=== PATIENT | male | born 1930 | race Caucasian/White ===

== ENCOUNTER 2019-04-16 22:23 | Observation (INO) | payer MEDICARE ==
[~2019-04-16] VITALS: Ht 182.9 cm; Wt 94.8 kg
[2019-04-16] MEDS ORDERED: SODIUM CHLORIDE 0.9% 1000ML 1,000 ML IV SCH (23:28)
[2019-04-16 23:43] LABS: BASOPHILS # (AUTO) 0.1 (0.0-0.1); BASOPHILS % 0.6 % (0.0-1.0); EOSINOPHILS # (AUTO) 0.3 (0.0-0.4); EOSINOPHILS % 3.6 % (0.0-6.0); HEMATOCRIT 38.4 % (38.2-49.6); HEMOGLOBIN 11.7 g/dL (14.0-18.0); LYMPHOCYTES # (AUTO) 1.5 (1.0-3.2); LYMPHOCYTES % 19.8 % (18.0-39.1); MEAN CORPUSCULAR HEMOGLOBIN 31.7 pg (28-32); MEAN CORPUSCULAR HGB CONC 30.5 g/dL (31-35); MEAN CORPUSCULAR VOLUME 104.1 fL (81-99); MONOCYTES # (AUTO) 0.7 (0.2-0.8); MONOCYTES % 8.7 % (4.4-11.3); NEUTROPHILS # (AUTO) 5.1 (2.1-6.9); PLATELET COUNT 137 x10e3/uL (140-360); RED BLOOD COUNT 3.69 x10e6/uL (4.3-5.7); RED CELL DISTRIBUTION WIDTH 14.7 % (11.7-14.4)
[2019-04-17] VITALS (12 sets, daily range): BP systolic 120–149; BP diastolic 64–88
[2019-04-17 00:04] LABS: ANION GAP 15.1 mmol/L (8-16); CREATININE, SERUM 1.59 mg/dL (0.72-1.25); POTASSIUM 5.1 mmol/L (3.5-5.1)
[2019-04-17 00:12] LABS: CREATINE KINASE MB 1.1 ng/mL (0-5.0)
--- NOTE | 2019-04-17 02:21 | Diagnostic Imaging Report ---
History:Fall Comparison studies: None Technique: Axial images were obtained from the skull base to the vertex. Coronal and sagittal images reconstructed from the axial data. Dose modulation, iterative reconstruction, and/or weight based adjustment of the mA/kV was utilized to reduce the radiation dose to as low as reasonably achievable. Intravenous contrast: None Findings: Scalp/skull: No abnormalities. Extra-axial spaces: No masses. No fluid collections. Brain sulci: Moderate prominent. Ventricles: Moderate compensatory dilatation. No hydrocephalus. Parenchyma: Ill-defined hypodensities in the supratentorial white matter are small vessel ischemic changes. No masses, hemorrhage, acute or chronic cortical vascular insults. Sellar/suprasellar region: No abnormalities. Craniocervical junction: Patent foramen magnum. No Chiari one malformation. Incidental findings: Atherosclerotic calcifications in the carotid siphons and vertebral arteries. Diffuse inflammatory opacification of the right frontal sinus and of multiple right ethmoid air cells. Impression: No acute abnormalities. Chronic findings: 1. Moderate generalized volume loss. 2. Mild supratentorial white matter small vessel ischemic changes. Signed by: Dr. Hung Gallegos M.D. on 04/17/2019 2:18 AM
--- NOTE | 2019-04-17 02:24 | Diagnostic Imaging Report ---
History: Fall Comparison studies: None Technique: Axial images were obtained through the cervical region.. Coronal and sagittal images reconstructed from the axial data. Dose modulation, iterative reconstruction, and/or weight based adjustment of the mA/kV was utilized to reduce the radiation dose to as low as reasonably achievable. Intravenous contrast: None Findings: Fractures: None. Soft tissues: No gross abnormalities. Atlantoaxial articulation: Moderate degenerative changes. Alignment: Normal lordosis. No scoliosis. 2 mm degenerative anterolisthesis of C3 on C4 and C4 on C5. Cervicomedullary junction: No abnormalities. The foramen magnum is patent. Vertebrae: No infection or neoplasm. Degenerative changes: * Mildly degenerated discs from C2 to C5, moderate from C5 to C7. * Facet arthrosis throughout the cervical region. * Moderate spinal canal stenosis at C6-C7 due to disc osteophyte complexes. * Foraminal stenosis is moderate bilaterally at C3-4, left at C4-5, bilaterally at C5-6 and C6-7 due to facet and uncovertebral arthrosis. Incidental atherosclerotic calcifications in the carotid bulbs. IMPRESSION: 1. No acute abnormalities. Specifically, no fractures 2. Cannot adequately evaluate for ligament, spinal cord and or vascular abnormalities. 3. Degenerative changes as described Signed by: Dr. Hung Gallegos M.D. on 04/17/2019 2:21 AM
--- NOTE | 2019-04-17 02:31 | Diagnostic Imaging Report ---
EXAM: CT Chest WITH contrast- Pulmonary Embolism Protocol INDICATION: Hypoxia, fall. COMPARISON: None TECHNIQUE: Chest was scanned utilizing a multidetector helical scanner from the lung apex through the level of the diaphragm after administration of IV contrast. Thin section reconstructions were obtained with special concentration on the pulmonary arteries. Coronal and sagittal reformations were obtained. Pulmonary embolism protocol was performed. IV CONTRAST: 100 cc of Isovue 370 RADIATION DOSE: Total DLP: 547.5 mGy*cm Dose modulation, iterative reconstruction, and/or weight based adjustment of the mA/kV was utilized to reduce the radiation dose to as low as reasonably achievable. COMPLICATIONS: None FINDINGS: LINES/ TUBES: Left-sided pacemaker with leads in the right atrial appendage and right ventricle. PULMONARY ARTERIES: No filling defect is identified within the pulmonary arteries to the segmental level. The subsegmental pulmonary arteries are not well opacified. Main pulmonary artery measures 2.9 cm in diameter. LUNGS AND AIRWAYS: The central airways are patent. There is bilateral mosaic attenuation. Subsegmental atelectasis in the lower lobes. PLEURA: No evidence of pneumothorax or pleural effusion. There are bilateral lower lobe pleural calcifications. HEART AND MEDIASTINUM: The thyroid gland is normal. No mediastinal, hilar or axillary lymphadenopathy. Mild cardiomegaly. Status post aortic valve replacement. Extensive coronary atherosclerosis with coronary stents. Moderate atherosclerotic calcifications of the thoracic aorta and branch vessels. UPPER ABDOMEN: Limited contrast-enhanced views of the upper abdomen. There is a 5.4 cm right upper pole renal cyst. Extensive atherosclerotic vascular calcifications, pronounced in the splenic artery. Status post left nephrectomy. Postsurgical changes of the liver. BONES: No acute osseous abnormality. No suspicious lytic or blastic lesions. SOFT TISSUES: Unremarkable. IMPRESSION: No evidence of pulmonary embolism to the level of segmental pulmonary arteries. No evidence of acute traumatic abnormality in the chest. Extensive coronary atherosclerosis with coronary stents. Status post aortic valve replacement. Bilateral mosaic attenuation, which may reflect air trapping or microvascular disease. Signed by: Dr. Monika Gonsalez MD on 04/17/2019 2:28 AM
[2019-04-17] MEDS ORDERED: IPRAT-ALBUT 0.5-3 ML (03:19)
[2019-04-17] MEDS ORDERED: ASPIR 8181 MG PO (03:25)
[2019-04-17] MEDS ORDERED: ATORVASTATIN CA20 MG PO (03:25)
[2019-04-17] MEDS ORDERED: SIMETHICONE80 MG PO (03:25)
[2019-04-17] MEDS ORDERED: LASIX40 MG PO (03:25)
[2019-04-17] MEDS ORDERED: ACETAMINOPHEN325 M1 PO (03:25)
[2019-04-17] MEDS ORDERED: NITROGLYCERIN0.4 MG SL (03:25)
[2019-04-17] MEDS ORDERED: LORATADINE10 MG PO (03:25)
[2019-04-17] MEDS ORDERED: METOPROLOL TART25 MG PO (03:25)
[2019-04-17] MEDS ORDERED: FLOMAX0.4 MG PO (03:25)
[2019-04-17] MEDS ORDERED: MECLIZINE HCL 12.5 MG TAB PO PRN (05:15)
[2019-04-17] MEDS ORDERED: ACETAMINOPHEN 325 MG TAB PO PRN (05:15)
[2019-04-17] MEDS ORDERED: ONDANSETRON HCL INJ 2MG/ML 2ML 2 MG/ML VIAL IV PRN (05:15)
[2019-04-17] MEDS ORDERED: TRAMADOL HCL 50 MG TAB PO PRN (05:15)
[2019-04-17] MEDS ORDERED: METOPROLOL TARTRATE 25 MG TAB PO PRN (05:30)
[2019-04-17] MEDS ORDERED: SIMETHICONE 80 MG CHEW PO PRN (05:30)
--- NOTE | 2019-04-17 06:07 | Diagnostic Imaging Report ---
EXAMINATION: CHEST SINGLE (PORTABLE) INDICATION: CHF. COMPARISON: CT chest 04/17/2019. FINDINGS: TUBES and LINES: Left-sided pacemaker with leads overlying the right atrial appendage and right ventricle. LUNGS: Low lung volumes which decreases sensitivity and specificity for pathology. There are patchy opacities at the lung bases bilaterally. No evidence of lobar consolidation. PLEURA: No pleural effusion or pneumothorax. HEART AND MEDIASTINUM: The cardiomediastinal silhouette is mildly enlarged. Atherosclerotic calcifications of the aortic arch. BONES AND SOFT TISSUES: No acute osseous lesion. Soft tissues are unremarkable. UPPER ABDOMEN: No free air under the diaphragm. IMPRESSION: Low lung volumes, cannot exclude mild pulmonary interstitial edema. Signed by: Dr. Monika Gonsalez MD on 04/17/2019 6:03 AM
[2019-04-17 06:09] LABS: BASOPHILS % 0.5 % (0.0-1.0); EOSINOPHILS # (AUTO) 0.3 (0.0-0.4); EOSINOPHILS % 3.3 % (0.0-6.0); HEMATOCRIT 35.2 % (38.2-49.6); LYMPHOCYTES # (AUTO) 2.2 (1.0-3.2); LYMPHOCYTES % 28.2 % (18.0-39.1); MEAN CORPUSCULAR HEMOGLOBIN 31.7 pg (28-32); MEAN CORPUSCULAR HGB CONC 31.3 g/dL (31-35); MEAN CORPUSCULAR VOLUME 101.4 fL (81-99); MONOCYTES # (AUTO) 0.8 (0.2-0.8); MONOCYTES % 9.9 % (4.4-11.3); NEUTROPHILS # (AUTO) 4.4 (2.1-6.9); NEUTROPHILS % 56.8 % (38.7-80.0); PLATELET COUNT 117 x10e3/uL (140-360); RED BLOOD COUNT 3.47 x10e6/uL (4.3-5.7); RED CELL DISTRIBUTION WIDTH 14.7 % (11.7-14.4)
[2019-04-17 06:46] LABS: ANION GAP 11.4 mmol/L (8-16); CALCIUM 8.6 mg/dL (8.4-10.2); CHOL/HDL RATIO 3.5 (3.9-4.7); CREATININE, SERUM 1.27 mg/dL (0.72-1.25); POTASSIUM 4.4 mmol/L (3.5-5.1)
[2019-04-17 06:53] LABS: THYROID STIMULATING HORMONE 0.577 uIU/mL (0.350-4.940)
--- NOTE | 2019-04-17 07:35 | NUR ---
Radiology department cancelled patient's MRI due to patient's pacemaker, spoke to Anita Garcia NP regarding the cancellation, she stated, "okay."
[2019-04-17] MEDS ORDERED: POTASSIUM CHLORIDE 20 MEQ TAB CR PO SCH (09:00)
[2019-04-17] MEDS ORDERED: FUROSEMIDE INJ 10 MG/ML 4 ML VIAL IV SCH (09:00)
[2019-04-17] MEDS: TAMSULOSIN HCL 0.4 MG CAP PO SCH (09:03)
[2019-04-17] MEDS: FAMOTIDINE 20 MG TAB PO SCH ×2 (09:03→17:08)
[2019-04-17] MEDS: ASPIRIN 81 MG CHEW TAB PO SCH (09:03)
--- NOTE | 2019-04-17 09:05 | NUR ---
ASSESSMENT: No spiritual/emotional concerns Intervention: Provided empathic listening and hospitality. Provided information on how to reach children's attendant, if needed. Outcome: Pt expressed appreciation for visit. PASQUALE MONTGOMERY Bookkeepers Supervisor Spiritual Care Department O: [phone] Pager: [phone] ([phone] number calling from)
[2019-04-17] MEDS ORDERED: SODIUM CHLORIDE 0.9% 50ML 50 ML ONE (09:51)
[2019-04-17] MEDS ORDERED: IOPAMIDOL 370 MG/ML 200 ML INFUS..BTL INJ ONE (09:52)
--- NOTE | 2019-04-17 13:29 | NUR ---
CALLED [facility] HE WILL BE ABLE TO RETURN TO FACILITY AFTER CARDIO CONSULT, LONG HE IS NOT PUT TO INPT, IF HE IS SWITCHED WILL HAVE TO OBTAIN NEW AUTH. COMPLETED RTF AND PUT WITH H AND P AND FACE SHEET ON CHART. GOING TO ROOM [address] KOKO VALENTIN AT [facility].
--- NOTE | 2019-04-17 14:08 | NUR ---
Called Anay Mehta's office regarding new consult at [phone] and [phone], left message regarding patient's new consulr with patient's name, date of and room number.
--- NOTE | 2019-04-17 14:54 | NUR ---
SPOKE WITH REP FROM [facility], WHOM STATES WILL HAVE TO RE [facility] AUTH BECAUSE OF TIME IN HOSPITAL, CAN GET AUTH TYPICALLY WITHIN A DAY, BUT WILL HAVE TO FAX CLINICALS TO [facility].
--- NOTE | 2019-04-17 14:56 | NUR ---
Radiology called to inform nursing staff that patient had a CT of chest with contrast within 24 hours so patient may not have the cervical CTA until tonight.
[2019-04-17] MEDS: METOPROLOL TARTRATE 25 MG TAB PO SCH (17:08)
--- NOTE | 2019-04-17 18:01 | Consultation ---
DATE OF CONSULTATION: Cardiac Consultation REASON FOR CONSULTATION: Fall, possible syncope. HISTORY: An 89-year-old gentleman, who is known with very long-standing history of vascular coronary disease. In fact, the patient had extensive coronary artery stenting to all the three coronary arteries at various time. Subsequently, he was admitted with near syncope and non-ST elevation myocardial infarction. He had a cardiac catheterization on January 05, 2019 in [facility], and it showed occluded RCA, occluded circumflex, only patency of LAD with collateral. It was felt by his treating diet kitchen cook, it should be treated medically. At that time, he was dismissed home. It seems he came back with subdural hematoma after a fall. He was having high-degree AV block. He ended with pacemaker implantation on 03/17/2019. Of note, also patient is known with his aortic valve disease and he had TAVR procedure. The patient transferred to [facility] for evaluation. While he is there, the patient felt dizzy when he stands up and he almost passed out. He was transferred to this institution. Part of his workup showed totally occluded right carotid artery. Patency of the left carotid endarterectomy, probably functioning well. He is having pacemaker activity noted. I visited the patient home. He is really truly weak. The problem it seems happened when he stands up quick and he felt dizzy and he fell and he had trauma to his head. The patient is weak for sometimes. He denied having any chest pain or any shortness of breath or palpitation prior to this episodes. REVIEW OF SYSTEMS: Extensive to all systems, will be summarized for clarity. GENERAL: Weakness. No weight loss. No weight gain. No fever, no chills. HEENT: Decreased hearing. PULMONARY: Easy fatigability and shortness of breath on exertion. No pleuritic chest pain. Occasional cough. CARDIAC: He denied having any chest pain. He does have chronic swelling of the lower extremity. He does have easy fatigability and shortness of breath. GI: No hematemesis. No melena. : He wears diaper. MUSCULOSKELETAL: Aches and pain, general debility. HEMATOLOGY: No easy bruising or bleeding. SOCIAL HISTORY: He is retired from [employer]. He is nonsmoker and non-alcohol drinker. HOME MEDICATIONS: Include aspirin 81 mg a day, Lipitor 40 mg a day, Lasix 40 mg twice a day, metoprolol 25 mg twice a day, Flomax 0.4 mg a day. ALLERGIES: NONE. PAST MEDICAL HISTORY: 1. Very lengthy including ischemic cardiomyopathy with coronary artery disease, status post PCI to all three vessels. Most recent catheterization on 03/07/2019, showed occlusion of all arteries with exception of LAD with collateral felt to be he should be treated medically. 2. 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 3. Recent fall and subdural hematoma. 4. Recent T4 fracture. 5. TAVR, questionable date using 23 mm Levy TAVR valve. 6. Status post left carotid endarterectomy. 7. Hypertension. 8. Subdural hematoma after a fall. 9. Nephrectomy. It is not clear if the right or left kidney. As per record, there are two different notes, one said left, one said right. 10. Hyperlipidemia. 11. Peripheral arterial vascular disease. 12. Chronic swelling of the lower extremity and congestive heart failure history. 13. 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 FAMILY HISTORY: There is history of coronary artery disease and hypertension. PHYSICAL EXAMINATION: VITAL SIGNS: Height of 6 feet. Weight of 209 pounds. Blood pressure 120/70, heart rate of 70, respiratory rate of 18. HEENT: Pupils are equal and reactive. NECK: No elevation of jugular venous pulsation. No bruit. CHEST: Clear to auscultation and percussion. HEART: PMI 5th left intercostal space. Normal first and second heart sounds with ejection systolic murmur. ABDOMEN: Soft with good bowel sounds. No organomegaly. EXTREMITIES: Chronic skin changes of foreleg. Minimal edema. NEUROLOGIC: The patient is weak, but there are no focal deficits. IMPRESSION AND PLAN: 1. Fall, possible postural hypertension, possible syncope. 2. Extensive vascular disease with documented occluded right internal carotid artery by carotid Doppler with patency of left carotid endarterectomy. 3. Diffuse coronary artery disease with only patency of LAD with collateral. 4. Status post TAVR. 5. Debility. 6. History of congestive heart failure, improving. 7. Cervical C6-C7 moderate spinal cord stenosis. 8. Fall and fracture of T4. 9. Debility and tendency to fall. From a cardiac point of view, we will recommend to observe him on telemetry. I would recommend stopping his diuretics since he had dye load and he is going to have a CTA of his head and cerebral circulation. We will continue his statin. He has already ruled out for pulmonary embolism by CAT scan. Deep venous thrombosis prophylaxis with precaution. I will interrogate his pacemaker to see if he got any arrhythmias at the time of his near syncope or postural hypotension. From a cardiac point of view, already the decision was made for medical therapy by his primary diet kitchen cook. The patient will be observed and we will follow his progression with you. MD OLIMPIA Flynn/MODL /[id number]
--- NOTE | 2019-04-17 19:36 | NUR ---
Received change of shift report from AM nurse. Walking rounds completed.
[2019-04-17] MEDS ORDERED: ATORVASTATIN 40 MG TAB PO SCH (21:00)
[2019-04-17] MEDS ORDERED: ATORVASTATIN 20 MG TAB PO SCH (21:00)
--- NOTE | 2019-04-17 21:00 | NUR ---
S/W son regarding patient. Son very upset. States pt need to see his own heart doctor. Informed charge nurse Mele RN to s/w son.
--- NOTE | 2019-04-17 21:04 | NUR ---
Patient's son called nurses station upset regarding why the patient has not been transferred to [facility]. The son and his were both on the phone call and very agitated. RN attempted to explain to both of them that the patient had a syncopal episode that may be possibly cardiac related and therefore tests have been ordered to diagnose or rule out. The son does not understand why these tests are being repeated and why we are going on a "fishing expedition." The son was demanding that the patient be transferred to [facility], RN explained that this could only be initiated by the attending physician and that the RN would convey his requests and concerns to the attending MD. Son stated that he did not want any procedures or tests done on the patient and asked that we simply observe the patient until Saturday morning when he has an appointment with his corpsman. RN again stated that these concerns and requests would be conveyed to the attending MD. RN called oncall number for Dr. Erickson at [phone] and spoke to Parveen Ng. RN updated her regarding the son's wishes. Berenice acknowledged the son's request. RN updated the bedside nurse with the son's requests.
--- NOTE | 2019-04-17 21:10 | NUR ---
spoke with son concerning above patient, very frustrated with father being in our hospital; states all his physicians are at [facility]; son does not want any type of invasive procedures done to his father at this hospital, he states monitor and maintain him, he and his were speaking to me on speaker phone and state they have the power of state attorney to make decisions on his behalf, their wishes are for him to either to be transferred to [facility] where he receives all his care or their second request was to just observe him and they wish him to be discharge to their care Saturday because he has an appointment with his physician at [facility] at that time and they can decide if he needs any further care. Informed family member we would get any test cancelled by contacting his admitting physicians, and let them know of their wishes for his care. Addendum: 04/17/19 at 2249 by Marcia Aguirre RN family members name is Suri Watts phone # [phone]
[2019-04-18] VITALS: BP 126/74
[2019-04-18 04:00] VITALS: BP 152/70
[2019-04-18] MEDS ORDERED: Meclizine Hcl PO (04:33)
--- NOTE | 2019-04-18 04:38 | NUR ---
Blood drawn and sent to lab. OSMAN on the floor to see patient. Informed that son mwhats nothing done and to transfer to [facility].
--- NOTE | 2019-04-18 04:44 | NUR ---
Charge nurse called to S/W PA.
[2019-04-18 05:02] LABS: BASOPHILS % 0.5 % (0.0-1.0); EOSINOPHILS # (AUTO) 0.3 (0.0-0.4); EOSINOPHILS % 3.7 % (0.0-6.0); HEMATOCRIT 36.7 % (38.2-49.6); HEMOGLOBIN 11.6 g/dL (14.0-18.0); LYMPHOCYTES # (AUTO) 2.2 (1.0-3.2); LYMPHOCYTES % 28.9 % (18.0-39.1); MEAN CORPUSCULAR HEMOGLOBIN 31.9 pg (28-32); MEAN CORPUSCULAR HGB CONC 31.6 g/dL (31-35); MEAN CORPUSCULAR VOLUME 100.8 fL (81-99); MONOCYTES # (AUTO) 0.7 (0.2-0.8); MONOCYTES % 8.5 % (4.4-11.3); NEUTROPHILS # (AUTO) 4.4 (2.1-6.9); NEUTROPHILS % 57.5 % (38.7-80.0); PLATELET COUNT 121 x10e3/uL (140-360); RED BLOOD COUNT 3.64 x10e6/uL (4.3-5.7); RED CELL DISTRIBUTION WIDTH 14.7 % (11.7-14.4)
[2019-04-18] MEDS: METOPROLOL TARTRATE 25 MG TAB PO SCH (05:07)
[2019-04-18 05:19] LABS: ANION GAP 13.3 mmol/L (8-16); CALCIUM 8.8 mg/dL (8.4-10.2); CREATININE, SERUM 1.22 mg/dL (0.72-1.25); POTASSIUM 4.3 mmol/L (3.5-5.1)
--- NOTE | 2019-04-18 06:46 | NUR ---
Informed Dr Garza that pt family what to be discharge to go down to [facility]. Dr barton.
[2019-04-18 07:45] VITALS: BP 141/67
[2019-04-18] MEDS: ASPIRIN 81 MG CHEW TAB PO SCH (08:00)
[2019-04-18] MEDS: FAMOTIDINE 20 MG TAB PO SCH (08:00)
[2019-04-18] MEDS: TAMSULOSIN HCL 0.4 MG CAP PO SCH (08:00)
--- NOTE | 2019-04-18 08:21 | NUR ---
Discharge order received from . [facility] is from [facility]. Spoke to Mary at [facility], She states patient was in 102. PEDRO informed her patient came in late 04/16, and Pat states it is ok for patient to return. Notified Stone NATHAN to call report to room 102.
[2019-04-18 08:39] VITALS: BP 141/67
--- NOTE | 2019-04-18 10:08 | NUR ---
Spoke to SHAHID with [facility], states good to send patient back with same MOT. Notified Stone NATHAN, also spoke to Ankit, who states he has already had all the work up requested here downtown so she would just like him to return to the facility to continue his rehab. Also, LILI explained to Ankit, she signed and it is placed on the chart. Printed accidentally on prescription paper, which ankit says is fine.
[2019-04-18 11:15] VITALS: BP 158/88
--- NOTE | 2019-04-20 00:57 | Discharge Summary ---
ADMISSION DIAGNOSES: Syncope, [id number] diastolic congestive heart failure, hypertension, benign prostatic hypertrophy, hyperlipidemia, history of coronary artery disease, acute kidney injury versus chronic kidney disease. 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 HISTORY: Hypertension, hyperlipidemia, BPH, chronic diastolic CHF, CAD with PCI. That is all the history the patient admitted to, but per Cardiology's note, he also told them he had PAD, cervical spine disease with C6-C7 spinal cord stenosis, subdural hematoma after a fall, recent T4 fracture, ischemic cardiomyopathy. SURGICAL HISTORY: Left nephrectomy, neck surgery, pacemaker, TAVR, and left carotid endarterectomy. FAMILY HISTORY: The patient's mother had cancer. The patient's uncle had a stroke. SOCIAL HISTORY: Noncontributory. HOSPITAL COURSE: An 89-year-old male, admits after syncope with fall. He was sitting at his desk. When he got up to go to the restroom, he got dizzy and fell. He denies hitting his head and says he did not trip. He denies any focal weakness. On admission, CT of the chest was done, which showed no PE. Chest x-ray showed low lung volumes. CT of the C-spine shows no acute abnormality. CT of the brain shows no acute abnormalities. Echo showed an EF of 60%. Carotid Doppler shows the endarterectomy on the left and an occluded right internal carotid. EKG showed AV dual chamber pacemaker. Cardiology was consulted and a CTA of the head and neck was ordered due to the possible occlusion of the right ICA. After speaking with the patient and family, they did not want anything further done at [facility]. They wanted to transfer to the [facility]. We informed them back without a definitive diagnoses, there is no reason to transfer as we can do everything at [facility] that they can do in the [facility]. The family were very irritated and the patient continued to refuse anymore testing including the pacemaker interrogation, which was wanted by Cardiology. So, the patient will discharge back to his assisted. He was given a p.r.n. prescription for meclizine. All other home medicines will stay the same. Vital signs stable, the patient afebrile. Dictated by Anita Garcia, INSURANCE SALES PROFESSIONAL MD ORTEGA Snowden/ANA MARIA /[id number]
== END 2019-04-18 12:15 ==
LOC: ER 22:23 → ERHOLD 04-17 00:40 → IMCU 04-17 02:11
PROVIDERS: ADMIT Internal Medicine; ATTEND Internal Medicine
DX: R55 Syncope and collapse (principal); R42 Dizziness and giddiness; I95.9 Hypotension, unspecified; R09.02 Hypoxemia; E78.5 Hyperlipidemia, unspecified; N40.0 Benign prostatic hyperplasia without lower urinary tract symptoms; I25.10 Atherosclerotic heart disease of native coronary artery without angina pectoris; Z95.5 Presence of coronary angioplasty implant and graft; Z80.9 Family history of malignant neoplasm, unspecified; Z82.3 Family history of stroke; Z90.5 Acquired absence of kidney; W01.0XXA Fall on same level from slipping, tripping and stumbling without subsequent striking against object, initial encounter; Y93.89 Activity, other specified; Z95.2 Presence of prosthetic heart valve; R53.81 Other malaise; M48.02 Spinal stenosis, cervical region; Z95.0 Presence of cardiac pacemaker; I65.21 Occlusion and stenosis of right carotid artery; I13.0 Hypertensive heart and chronic kidney disease with heart failure and stage 1 through stage 4 chronic kidney disease, or unspecified chronic kidney disease; I50.33 Acute on chronic diastolic (congestive) heart failure; N18.9 Chronic kidney disease, unspecified; N17.9 Acute kidney failure, unspecified; Y92.199 Unspecified place in other specified residential institution as the place of occurrence of the external cause
CPT/HCPCS: 36415 ×3; 70450; 71045; 71260; 72125; 80048 ×3; 80061; 82550; 82553; 83036; 83880; 84443; 84484; 85025 ×3; 93005; 93306; 93880; 97116; 97139; 97161; 97530; 99284; G0378 ×2; J1940; J7030; Q9967

== ENCOUNTER → 2019-09-28 | Emergency (ER) | payer MEDICARE ==
[~2019-09-28] VITALS: Ht 182.9 cm; Wt 94.8 kg
[~2019-09-28] MED LIST: ACETAMINOPHEN325 M1 PO; ASPIR 8181 MG PO; ATORVASTATIN CA20 MG PO; FLOMAX0.4 MG PO; IPRAT-ALBUT 0.5-3 ML; LASIX40 MG PO; LORATADINE10 MG PO; METOPROLOL TART25 MG PO; Meclizine Hcl PO; NITROGLYCERIN0.4 MG SL; SIMETHICONE80 MG PO
--- OUTSIDE RECORDS SUMMARY | 2019-09-28 21:31 | XMS REPORT | Clinical Summary ---
Author Author [facility] Organization [facility] Address Unknown Phone Unavailable Care Team Providers Care Clipping Marker Name Role Phone George De MD PCP Allergies No Known Allergies Medications End Date Status Medication Sig Dispensed Refills Start Date Active loratadine-pseudoepHEDrin Take 1 tablet 0 e (CLARITIN-D 24-hour) by mouth 10-240 mg per 24 hr daily. tablet Active aspirin (ECOTRIN) 81 MG Take 81 mg by 0 enteric coated tablet mouth daily. Active metoprolol succinate XL Take 25 mg by 0 (TOPROL-XL) 25 mg 24 hr mouth daily. tablet Active furosemide (LASIX) 40 mg Take 40 mg by 0 tablet mouth daily. Active silodosin (RAPAFLO) 8 mg Take 8 mg by 0 capsule mouth daily. Active atorvastatin (LIPITOR) 40 Take 40 mg by 0 MG tablet mouth nightly. Active clopidogrel (PLAVIX) 75 Take 75 mg by 0 mg tablet mouth daily. Active sennosides-docusate Take 1 tablet 0 sodium (SENOKOT-S) 8.6-50 by mouth mg per tablet daily as needed. 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 Never 03/16/2019 How many drinks containing alcohol do you have on No t asked a typical day when you are drinking? How often do you have six or more drinks on one Not asked occasion? Sex Assigned at Date Recorded Not on file Industry Job Start Date Occupation Not on file Not on file Not on file Travel End Travel History Travel Start No recent travel history available. Last Filed Vital Signs Reading Time Taken Comments Vital Sign 132/62 03/16/2019 1:30 PM CDT Blood Pressure 93 03/16/2019 1:30 PM CDT Pulse 36.4 C (97.6 F) 03/16/2019 1:30 PM CDT Temperature 18 03/16/2019 1:30 PM CDT Respiratory Rate 95% 03/16/2019 1:30 PM CDT Oxygen Saturation - - Inhaled Oxygen Concentration 99.8 kg (220 lb) 03/16/2019 10:09 AM CDT Weight 182.9 cm (6') 03/16/2019 10:09 AM CDT Height 29.84 03/16/2019 10:09 AM CDT Body Mass Index Plan of Treatment Health Maintenance Due Date Last Done Comments SHINGLES VACCINES (#1) 01/18/1980 65+ PNEUMOCOCCAL VACCINE 1995 (1 of 2 - PCV13) INFLUENZA VACCINE 12/19/2019 Procedures Comments Procedure Name Priority Date/Time Associated Diag nosis CT HEAD WO CONTRAST STAT 03/16/2019 11:26 AM CDT XR CHEST 1 VW PORTABLE STAT 03/16/2019 11:07 AM CDT XR PELVIS 1 OR 2 VW STAT 03/16/2019 11:06 AM CDT URINALYSIS SCREEN AND STAT 03/16/2019 MICROSCOPY, WITH REFLEX 10:49 AM CDT TO CULTURE ECG ED PRELIMINARY Routine 03/16/2019 INTERPRETATION 10:47 AM CDT [place] [facility], E/M Routine 03/16/2019 30-74 MINUTES 10:47 AM CDT TROPONIN, I-STAT STAT 03/16/2019 10:34 AM CDT ESTIMATED GFR STAT 03/16/2019 10:34 AM CDT PARTIAL THROMBOPLASTIN STAT 03/16/2019 TIME (PTT) 10:34 AM CDT PROTHROMBIN TIME WITH INR STAT 03/16/2019 10:34 AM CDT HC COMPLETE BLD COUNT STAT 03/16/2019 W/AUTO DIFF 10:34 AM CDT B NATRIURETIC PEPTIDE STAT 03/16/2019 10:34 AM CDT COMPREHENSIVE METABOLIC STAT 03/16/2019 PANEL 10:34 AM CDT ECG 12-LEAD STAT 03/16/2019 10:28 AM CDT ECG 12-LEAD STAT 03/16/2019 10:16 AM CDT after 09/27/2018 Results * CT Head Wo Contrast (03/16/2019 11:26 AM CDT) Specimen Narrative Performed At EXAMINATION: CT HEAD WO CONTRAST [facility] CLINICAL HISTORY: fall COMPARISON: None TECHNIQUE: Noncontrast CT of the brain was performed from the skull base to the vertex. Both soft tissue and bone recon struction algorithms are interpreted. CT imaging was performed with iterative reconstruction techniques and/or automated exposure control to reduce ra diation dose. FINDINGS: There is acute subdural hemorrhage tanika g the right aspect of the falx with maximal thickness of 8 mm. There is no significant mass effect. No parenchymal hemorrhage is seen. [employer] toy small vessel ischemic changes are noted in the cerebral white matter. Inv olutional changes of brain are present. Intracranial atherosclerotic calcificat ions are noted. No fracture is seen. There is opacification of the right fro ntal sinus and right ethmoid air cells. IMPRESSION: Acute subdural hematoma along the right aspect of the falx with maximal thickness of 8 mm. No significant mass effect. Findings were discussed with Dr. Vazquez at 11:29 AM. He verbalized understanding. [id number] Procedure Note Hm Interface, Radiology Results Incoming - 03/16/2019 11:34 AM CDT EXAMINATION: CT HEAD WO CONTRAST CLINICAL HISTORY: fall COMPARISON: None TECHNIQUE: Noncontrast CT of the brain was performed from the skull base to the vertex. Both soft tissue and bone reconstruction algorithms are interpreted. CT imaging was performed with iterative reconstruction techniques and/or automated exposure control to reduce radiation dose. FINDINGS: There is acute subdural hemorrhage along the right aspect of the falx with maximal thickness of 8 mm. There is no significant mass effect. No parenchymal hemorrhage is seen. Chronic small vessel ischemic changes are noted in the cerebral white matter. Involutional changes of brain are present. Intracranial atherosclerotic calcifications are noted. No fracture is seen. There is opacification of the right frontal sinus and right ethmoid air cells. IMPRESSION: Acute subdural hematoma along the right aspect of the falx with maximal thickness of 8 mm. No significant mass effect. Findings were discussed with Dr. Vazquez at 11:29 AM. He verbalized understanding. [id number] Performing Organization Address [facility] one Number [facility] [address] [place] [address] * XR Chest 1 Vw Portable (03/16/2019 11:07 AM CDT) Specimen Narrative Performed At EXAMINATION: XR CHEST 1 VW PORTABLE [facility] CLINICAL HISTORY: eval for pna XR CHEST 1 VW PORTABLE images are sub mitted COMPARISON: October 2012 FINDINGS: The cardiac silhouette is normal in siz e. The pulmonary vasculature is within normal limits. The lung zones have no f ocal area of consolidation. There is no pleural effusion or pneumothorax. Platelike atelectasis is seen at the le ft lung base. There is mild elevation of the right hemidiaphragm. IMPRESSION: 1. There is no acute cardiopulmonary di sease. [id number] Procedure Note Hm Interface, Radiology Results Incoming - 03/16/2019 11:11 AM CDT EXAMINATION: XR CHEST 1 VW PORTABLE CLINICAL HISTORY: eval for pna XR CHEST 1 VW PORTABLE images are submitted COMPARISON: October 2012 FINDINGS: The cardiac silhouette is normal in size. The pulmonary vasculature is within normal limits. The lung zones have no focal area of consolidation. There is no pleural effusion or pneumothorax. Platelike atelectasis is seen at the left lung base. There is mild elevation of the right hemidiaphragm. IMPRESSION: 1. There is no acute cardiopulmonary dis ease. [id number] Performing Organization Address [facility] one Number [facility] [address] [place] [address] * XR Pelvis 1 Or 2 Vw (03/16/2019 11:06 AM CDT) Specimen Narrative Performed At PROCEDURE: XR PELVIS 1 OR 2 VW [facility] CLINICAL HISTORY: fall COMPARISON: None. TECHNIQUE: Multiple AP views of the pelvis are sub mitted. FINDINGS: No fracture, dislocation, periosteal re action or bone destruction is identified. No acute bony abnormality is seen. Degenerative changes are present within the lumbar spine. If the patient's symptoms persist or de teriorate, follow-up radiograph in 10 days time is recommended, if clinically indicated. IMPRESSION: 1. There is no acute fracture or sublux ation. 2. There are degenerative changes prese nt within the lumbar spine. [id number] . Procedure Note Hm Interface, Radiology Results Incoming - 03/16/2019 11:11 AM CDT PROCEDURE: XR PELVIS 1 OR 2 VW CLINICAL HISTORY: fall COMPARISON: None. TECHNIQUE: Multiple AP views of the pelvis are submitted. FINDINGS: No fracture, dislocation, periosteal reaction or bone destruction is identified. No acute bony abnormality is seen. Degenerative changes are present within the lumbar spine. If the patient's symptoms persist or deteriorate, follow-up radiograph in 10 days time is recommended, if clinically indicated. IMPRESSION: 1. There is no acute fracture or subluxa tion. 2. There are degenerative changes presen t within the lumbar spine. [id number] . Performing Organization Address City/State/Zipcode Ph one Number [facility] [address] [place] [address] * Urinalysis screen and microscopy, with reflex to culture (03/16/2019 10:49 AM CDT) Specimen site Clean catch [facility] Color, UA Yellow [facility] Appearance, UA Clear [facility] Specific 1.018 1.001 - 1.035 [facility] gravity, [facility] pH, UA 5.0 5.0 - 8.5 [facility] Protein, UA Negative Negative [facility] Glucose, UA Negative Negative [facility] Ketones, UA Negative Negative [facility] Bilirubin, UA Negative Negative [facility] Blood, UA Moderate (A) Negative [facility] Nitrite, UA Negative Negative [facility] Urobilinogen, Negative <2.0 [facility] Leukocyte Negative Negative [place] esterase, UA [facility] Epithelial Few /HPF [place] cells, UA [facility] WBC, UA 1 0 - 1 /HPF [facility] RBC, UA 3 0 - 5 /HPF [facility] Bacteria, UA Trace None seen [facility] Yeast, UA None seen [facility] Yeast with None seen [facility] pseudohyphae, [facility] Hyaline casts, 2 /LPF [facility] Specimen Urine Performing Organization Address City/State/Zipcode Ph one Number [facility] DEPARTMENT OF [address] [place] [address] PATHOLOGY AND GENOMIC MEDICINE [address] * ECG ED Preliminary Interpretation - Not an Order (03/16/2019 10:47 AM CDT) Narrative Performed At Gildardo Vazquez Jr., MD 03/17 6:53 AM ECG ED Preliminary Interpretation - Not an Order Performed by: Gildardo Vazquez Jr., MD Authorized by: Gildardo Vazquez Jr., MD ECG reviewed by ED Physician in the abs ence of a shuttle spotter: yes Previous ECG: Previous ECG: Unavailable Rate: ECG rate: 95 ECG rate assessment: normal Rhythm: Rhythm: sinus rhythm Ectopy: Ectopy: none QRS: QRS axis: Normal QRS intervals: Normal Conduction: Conduction: abnormal Abnormal conduction: incomplete RBBB Abnormal conduction comment: Possib le second degree type [address] segments: ST segments: Normal T waves: T waves: normal Comments: Possible second degree type 2 block. * CRITICAL CARE (03/16/2019 10:47 AM CDT) Narrative Performed At Gildardo Vazquez Jr., MD 03/17 6:53 AM Critical Care Performed by: Gildardo Vazquez Jr., MD Authorized by: Gildardo Vazquez Jr., MD Critical care provider statement: Critical care time (minutes): 40 Critical care time was exclusive of: Separately billable procedures and treating other patients and teaching ti ky Critical care was necessary to treat or prevent imminent or life-threatening deterioration of the f ollowing conditions: Cardiac failure and DIRECTOR TRANSLATIONAL failure or compromise Critical care was time spent personal ly by me on the following activities: Obtaining history from pa tient or surrogate, interpretation of cardiac output measurements, examina tion of patient, evaluation of patient's response to treatment, develo pment of treatment plan with patient or surrogate, ordering and perf orming treatments and interventions, ordering and review of l aboratory studies, ordering and review of radiographic studies, pulse o ximetry and re-evaluation of patient's condition Eric 'yes' if you are taking over cri tical care for this patient from another provider.: no * Estimated GFR (03/16/2019 10:34 AM CDT) [facility] Estimated GFR 35 (A) mL/min/1.73 m2 [facility] Comment: SCIENTOLOGIST Catergory Units [facility] HOSPITAL G1 >=90 Normal or high G2 60-89 Mildly decreased G3a 45-59 Mildly to moderately decreased G3b 30-44 Moderately to severely decreased G4 15-29 Severely decreased G5 <15 Kidney failure The eGFR was calculated using the Chronic Kidney Disease Epidemiology Collaboration (CKD-EPI) equation. Interpretation is based on recommendations of the National Kidney Foundation-Kidney Disease Outcomes Quality Initiative (NKF-KDOQI) published in 2014. Specimen Plasma specimen Performing Organization Address [facility] Ph one Number [facility] DEPARTMENT [address] [facility] [place] [address] PATHOLOGY AND [employer] MEDICINE [facility] [address] [place] [address] HOSPITAL * Troponin, I-Stat (03/16/2019 10:34 AM CDT) [facility] Troponin, 0.09 (H) 0.00 - 0.08 ng/mL [facility] I-Stat Comment: SCIENTOLOGIST 0.09 - 1.49 ng/ml [facility] May indicate increased risk HOSPITAL of acute coronary syndrome. >=1.5 ng/ml Consistent with acute myocardial infarction. The diagnostic value of a single normal or non-diagnostic result is questionable. Serial samples at 2-6 hour intervals are required to rule out acute myocardial injury. Specimen Plasma specimen Performing Organization Address City/[facility] Ph one Number [facility] DEPARTMENT OF [address] [facility] [place] [id number] PATHOLOGY AND GENOMIC MEDICINE [facility] [address] * Partial thromboplastin time, activated (03/16/2019 10:34 AM CDT) Pathologist [facility] PTT 34.2 23.0 - 36.0 sec [facility] Comment: SCIENTOLOGIST PTT therapeutic range for [facility] unfractionated heparin is HOSPITAL 61.0-112.0 seconds which corresponds to Anti-Xa 0.3-0.7 U/ml. Specimen Blood Performing Organization Address City/[facility] Ph one Number [facility] DEPARTMENT OF [address] [facility] [place] [address] PATHOLOGY AND GENOMIC MEDICINE [address] * Prothrombin time with INR (03/16/2019 10:34 AM CDT) Pathologist [facility] Prothrombin 13.9 11.5 - 14.5 sec [facility] INR 1.10 [facility] Comment: SCIENTOLOGIST For patients on anticoagulant [facility] therapy, reference ranges HOSPITAL below: Indication: INR Value Treatment of Venous Thrombosis, 2.0-3.0 pulmonary emboli, or prophylaxis of a venous thrombosis, or systemic emboli. High dose, high risk patients 3.0-4.5 with mechanical valves. NOTE: INR values over 3.0 are sometimes associated with gastrointestinal hemorrhage, especially values over 4.0. Specimen Blood Performing Organization Address City/[facility] Ph one Number [facility] DEPARTMENT OF [address] [facility] [address] PATHOLOGY AND GENOMIC MEDICINE [address] * CBC with platelet and differential (03/16/2019 10:34 AM CDT) Pathologist [facility] WBC 9.5 4.2 - 11.0 k/uL [facility] RBC 3.78 (L) 4.04 - 5.86 m/uL [facility] HGB 11.9 (L) 13.0 - 17.3 g/dL [facility] HCT 38.1 34.0 - 45.0 % [facility] MCV 100.8 (H) 80.0 - 98.0 fL [facility] MCH 31.5 27.0 - 34.0 pg [facility] MCHC 31.2 (L) 31.5 - 36.5 g/dL [facility] RDW - SD 51.6 (H) 37.0 - 51.0 fL [facility] MPV 10.4 7.4 - 10.4 fL [facility] Platelet count 152 150 - 400 k/uL [facility] Nucleated RBC 0.00 /100 WBC [facility] Neutrophils 70.5 (H) 36.0 - 66.0 % [facility] Lymphocytes 16.3 (L) 24.0 - 44.0 % [facility] Monocytes 8.7 (H) 0.0 - 6.0 % [facility] Eosinophils 1.9 0.0 - 6.0 % [facility] Basophils 0.4 0.0 - 1.2 % [facility] Immature 2.2 (H) 0.0 - 1.0 % [facility] granulocytes [facility] Specimen Blood Performing Organization Address City/[facility] Ph one Number [facility] DEPARTMENT OF [address] [place] [address] PATHOLOGY AND GENOMIC MEDICINE [address] * B natriuretic peptide (03/16/2019 10:34 AM CDT) Pathologist [facility] BNP 126 (H) 0 - 100 pg/mL [facility] Specimen Blood Performing Organization Address City/[facility] Ph one Number [facility] DEPARTMENT OF [address] [place] [address] PATHOLOGY AND GENOMIC MEDICINE [address] * Comprehensive metabolic panel (03/16/2019 10:34 AM CDT) Pathologist [facility] Sodium 142 135 - 150 mEq/L [facility] Potassium 4.3 3.5 - 5.0 mEq/L [facility] Chloride 100 98 - 112 mEq/L [facility] CO2 27 24 - 31 mmol/L [facility] Anion gap 15@ANIO 7 - 15 mEq/L [facility] BUN 49 (H) 7 - 18 mg/dL [facility] Creatinine 1.70 (H) 0.70 - 1.20 mg/dL [facility] Glucose 146 (H) 65 - 100 mg/dL [facility] Calcium 9.5 8.8 - 10.2 mg/dL [facility] Protein 6.9 6.3 - 8.3 g/dL [facility] Albumin 3.1 (L) 3.5 - 5.0 g/dL [facility] A/G ratio 0.8 0.7 - 3.8 [facility] Alkaline 78 0 - 129 U/L [place] phosphatase [facility] AST 20 10 - 50 U/L [facility] ALT 14 5 - 50 U/L [facility] Total bilirubin 1.0 0.2 - 1.2 mg/dL [facility] Specimen Plasma specimen Performing Organization Address City/State/[facility] Ph one Number [facility] DEPARTMENT OF [address] [facility] [place] [phone] PATHOLOGY AND GENOMIC MEDICINE [facility] [address] [facility] [address] * ECG 12 lead (03/16/2019 10:28 AM CDT) Only the most recent of 2 results within the time period is included. Ventricular 95 [facility] rate Atrial rate 96 [facility] QRSD interval 142 [facility] QT interval 356 [facility] QTC interval 447 [facility] P axis 1 61 [facility] QRS axis 1 60 [facility] T wave axis 44 [facility] EKG impression Undetermined rhythm-Right [facility] bundle branch block-Cannot rule out Inferior infarct (cited on or before 27-OCT-2012)-Abnormal ECG-In automated comparison with ECG of 16-MAR-2019 10:16,-Current undetermined rhythm precludes rhythm comparison, needs review- Specimen Narrative Performed At This result has an attachment that is n ot available. Performing Organization Address City/State/Zipcode Ph one Number [facility] [address] [place] [address] after 09/27/2018 Insurance Type Payer Benefit Subscriber ID Effective Phone Address Plan / Dates Group HMO [facility] MEDICARE [facility] xxxxxxxxx 2018-P MEDICARE resent HMO/PPO (Home) [place], [place] [address] Advance Directives For more information, please contact: [phone] Patient Sleep Technician Explanation Type Date Recorded Advance Directives, 03/16/2019 10:53 AM Living Will and Medical Power of Manager Of Broadcast Content Advance Directives, 03/16/2019 10:53 AM Living Will and Medical Power of Manager Of Broadcast Content Advance Directives, 03/16/2019 12:21 PM Living Will and Medical Power of Manager Of Broadcast Content
--- OUTSIDE RECORDS SUMMARY | 2019-09-28 21:32 | XMS REPORT | Summary of Care ---
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) Allergies, Adverse Reactions, Alerts Substance Reaction Severity Status NKDA Active Medications No data available for this section Results No data available for this section Immunizations No data available for this section Procedures Procedure Date Related Diagnosis Body Site Status CEA - Carotid endarterectomy1 Completed Nephrectomy Completed Placement of stent in anterior descending Complet ed branch of left coronary artery 1Left Social History Social History Type Response Smoking Status Former smoker; Type: Cigare ttes; Previous treatment: None; Concerns about tobacco use in household: No; Exposure to Tobacco Smoke None; Cigarette Smoking Last 365 Days No; Reg Smoking C essation Counseling No; Stopped at age: 25; entered on: 09/10/17 Assessment and Plan No data available for this section
--- OUTSIDE RECORDS SUMMARY | 2019-09-28 21:32 | XMS REPORT | Summary of Care ---
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) Renal cell Resolved carcinoma(Confirmed) Allergies, Adverse Reactions, Alerts No Known Medication Allergies Medications No data available for this section Results No data available for this section Immunizations No data available for this section Procedures Procedure Date Related Diagnosis Body Site Status 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 Completed TAVR - Transcatheter aortic valve replacement 03/11/19 Completed CEA - Carotid endarterectomy1 Completed Nephrectomy Completed Placement of stent in anterior descending Complet ed branch of left coronary artery 1Left Social History Social History Type Response Alcohol Past Smoking Status Current every day smoker; T ype: Chewing tobacco; Previous treatment: None; Concerns about tobacco use in household : No; Exposure to Tobacco Smoke None; Cigarette Smoking Last 365 Days N o; Reg Smoking Cessation Counseling No; Stopped at age: 25; entered on: 04/20/19 Assessment and Plan No data available for this section
--- OUTSIDE RECORDS SUMMARY | 2019-09-28 21:32 | XMS REPORT | Summary of Care ---
Author Author [facility] Organization [facility] Address Unknown Phone Unavailable Encounter SHAYY Zaldivar(OFELIA) [id number] Date(s): 07/08/15 - 07/08/15 [facility] [address] [facility] [employer] [facility] [place] [address]- Discharge Disposition: Home Attending Physician: Tom Nova MD Admitting Physician: Tom Nova MD Referring Physician: Tom Nova MD Vital Signs Most recent to 1 oldest [Reference Range]: Height 182.88 cm (07/08/15 7:10 AM) Blood Pressure 133/83 mmHg [90-140/60-90 mmHg] (07/08/15 7:00 AM) Respiratory Rate 18 BRMIN [14-20 BRMIN] (07/08/15 7:00 AM) Weight 105 kg (07/08/15 7:10 AM) Body Mass Index 31.39 m2 (07/08/15 7:10 AM) Problem List Condition Effective Dates Status Health Status Informan t 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) Allergies, Adverse Reactions, Alerts Substance Reaction Severity Status NKDA Active Medications No Known Medications Results BLOOD BANK RESULTS Most recent to 1 oldest [Reference Range]: ABO/Rh O POS *Unknown* (07/08/15 7:13 AM) Antibody Scrn Negative (07/08/15 7:13 AM) ELECTROLYTES Most recent to 1 oldest [Reference Range]: Sodium Lvl [135-145 140 mEq/L mEq/L] (07/08/15 7:13 AM) Potassium Lvl 4.1 mEq/L [3.5-5.1 mEq/L] (07/08/15 7:13 AM) Chloride Lvl [95-109 105 mEq/L mEq/L] (07/08/15 7:13 AM) CO2 [24-32 mEq/L] 29 mEq/L (07/08/15 7:13 AM) AGAP [10.0-20.0 10.1 mEq/L mEq/L] (07/08/15 7:13 AM) CHEM PANEL Most recent to 1 oldest [Reference Range]: Creatinine Lvl 1.38 mg/dL [0.50-1.40 mg/dL] (07/08/15 7:13 AM) eGFR 46 mL/min/1.73m2 1 *NA* (07/08/15 7:13 AM) BUN [7-22 mg/dL] 22 mg/dL (07/08/15 7:13 AM) B/C Ratio [6-25] 16 (07/08/15 7:13 AM) Glucose Lvl [70-99 127 mg/dL mg/dL] *HI* (07/08/15 7:13 AM) Total Protein 7.3 g/dL [6.4-8.4 g/dL] (07/08/15 7:13 AM) Albumin Lvl [3.5-5.0 3.2 g/dL g/dL] *LOW* (07/08/15 7:13 AM) Globulin [2.0-4.0 4.1 g/dL g/dL] *HI* (07/08/15 7:13 AM) A/G Ratio [0.7-1.6] 0.8 (07/08/15 7:13 AM) Calcium Lvl 8.9 mg/dL [8.5-10.5 mg/dL] (07/08/15 7:13 AM) Magnesium Lvl 1.7 mg/dL [1.8-2.4 mg/dL] *LOW* (07/08/15 7:13 AM) ALT [0-65 unit/L] 17 unit/L (07/08/15 7:13 AM) AST [0-37 unit/L] 14 unit/L (07/08/15 7:13 AM) Alk Phos [39-136 108 unit/L unit/L] (07/08/15 7:13 AM) Bili Total [0.2-1.3 0.4 mg/dL mg/dL] (07/08/15 7:13 AM) 1Result Comment: The eGFR is calculated using the CKD-EPI formula. In most young, healthy individuals the eGFR will be >90 mL/min/1.73m2. The eGFR declines with age. An eGFR of 60-89 may be normal in some populations, particularly the elderly, for whom the CKD-EPI formula has not been extensively validated. Use of the eGFR is not recommended in the following populations: Individuals with unstable creatinine concentrations, including patients and those with serious co-morbid conditions. Patients with extremes in muscle mass or diet. The data above are obtained from the National Kidney Disease Education Program ( NKDEP) which additionally recommends that when the eGFR is used in patients with extremes of body mass index for purposes of drug dosing, the eGFR should be mul tiplied by the estimated BMI. HEMATOLOGY Most recent to 1 oldest [Reference Range]: WBC [3.7-10.4 K/CMM] 9.9 K/CMM (07/08/15 7:13 AM) RBC [4.70-6.10 4.54 M/CMM M/CMM] *LOW* (07/08/15 7:13 AM) Hgb [14.0-18.0 g/dL] 13.4 g/dL *LOW* (07/08/15 7:13 AM) Hct [42.0-54.0 %] 41.8 % *LOW* (07/08/15 7:13 AM) MCV [80.0-94.0 fL] 92.1 fL (07/08/15 7:13 AM) MCH [27.0-31.0 pg] 29.5 pg (07/08/15 7:13 AM) MCHC [32.0-36.0 32.0 g/dL g/dL] (07/08/15 7:13 AM) RDW [11.5-14.5 %] 14.3 % (07/08/15 7:13 AM) Platelet [133-450 281 K/CMM K/CMM] (07/08/15 7:13 AM) MPV [7.4-10.4 fL] 7.7 fL (07/08/15 7:13 AM) Segs [45.0-75.0 %] 65.9 % (07/08/15 7:13 AM) Lymphocytes 23.1 % [20.0-40.0 %] (07/08/15 7:13 AM) Monocytes [2.0-12.0 7.7 % %] (07/08/15 7:13 AM) Eosinophils [0.0-4.0 2.7 % %] (07/08/15 7:13 AM) Basophils [0.0-1.0 0.6 % %] (07/08/15 7:13 AM) Segs-Bands # 6.5 K/CMM [1.5-8.1 K/CMM] (07/08/15 7:13 AM) Lymphocytes # 2.3 K/CMM [1.0-5.5 K/CMM] (07/08/15 7:13 AM) Monocytes # [0.0-0.8 0.8 K/CMM K/CMM] (07/08/15 7:13 AM) Eosinophils # 0.3 K/CMM [0.0-0.5 K/CMM] (07/08/15 7:13 AM) Basophils # [0.0-0.2 0.1 K/CMM K/CMM] (07/08/15 7:13 AM) PT [12.0-14.7 14.4 seconds seconds] (07/08/15 7:13 AM) INR [0.85-1.17] 1.09 (07/08/15 7:13 AM) PTT [22.9-35.8 30.9 seconds seconds] (07/08/15 7:13 AM) Immunizations No data available for this section Procedures Procedure Date Related Diagnosis Body Site CEA - Carotid endarterectomy1 Nephrectomy Placement of stent in anterior descendi ng branch of left coronary artery 1Left Social History Social History Type Response Smoking Status Never smoker; Exposure to T obacco Smoke None; Cigarette Smoking Last 365 Days No; Reg Smoking Cessation Counseli ng No Assessment and Plan No data available for this section
--- OUTSIDE RECORDS SUMMARY | 2019-09-28 21:32 | XMS REPORT | Summary of Care ---
Author Author [facility] Organization [facility] Address Unknown Phone Unavailable Encounter SHAYY Zaldivar(OFELIA) [id number] Date(s): 06/16/18 - 06/16/18 [facility] [address], [address] Discharge Disposition: Home or Self Care Attending Physician: Tom Nova MD Referring Physician: Tom Nova MD Vital Signs Most recent to 1 oldest [Reference Range]: Height 171.45 cm (06/16/18 11:54 AM) Temperature Oral 97.3 DegF [96.4-99.1 DegF] (06/16/18 11:54 AM) Blood Pressure 134/85 mmHg [90-140/60-90 mmHg] (06/16/18 11:54 AM) Respiratory Rate 16 BRMIN [14-20 BRMIN] (06/16/18 11:54 AM) Peripheral Pulse 65 bpm Rate [60-100 bpm] (06/16/18 11:54 AM) Weight 101.818 kg (06/16/18 11:54 AM) Body Mass Index 34.64 m2 (06/16/18 11:54 AM) Problem List Condition Effective Dates Status Health Status Informan t 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
--- OUTSIDE RECORDS SUMMARY | 2019-09-28 21:32 | XMS REPORT | Summary of Care ---
Author Author [facility] Organization [facility] Address Unknown Phone Unavailable Encounter HQ Kayley(OFELIA) [id number] Date(s): 04/22/17 - 04/23/17 [facility] [address], [address] [place], [place] [address] Vital Signs No data available for this [...] essation Counseling No; Stopped at age: 25; Assessment and Plan No data available for this section
--- OUTSIDE RECORDS SUMMARY | 2019-09-28 21:32 | XMS REPORT | Summary of Care ---
Author Author [facility] Organization [facility] Address Unknown Phone Unavailable Encounter HQ Kayley(OFELIA) [id number] Date(s): 04/22/17 - 04/22/17 [facility] [address] Discharge Disposition: Home or Self Care Attending Physician: Tom Nova MD Referring Physician: Tom Nova MD Vital Signs Most recent to 1 2 oldest [Reference Range]: Height 182.88 cm 182.88 cm (04/22/17 10:10 AM) (04/19/17 8:41 AM) Weight 102.273 kg 102.273 kg (04/22/17 10:10 AM) (04/19/17 8:41 AM) Body Mass Index 30.58 m2 30.58 m2 (04/22/17 10:10 AM) (04/19/17 8:41 AM) Problem List Condition Effective Dates Status [...]
--- OUTSIDE RECORDS SUMMARY | 2019-09-28 21:32 | XMS REPORT | Summary of Care ---
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) Allergies, Adverse Reactions, Alerts Substance Reaction Severity Status NKDA Active Medications amLODIPine 10 mg oral tablet 10 mg = 1 tab, PO, Daily, PT MUST SEE PRIMARY CONTINUITY CLERK FOR FUTURE REFILLS, # 30 tab, 0 Refill(s), Pharmacy: [facility] [id number] Start Date: 10/04/16 Status: Ordered Results No data available for this section Immunizations No data available for this section Procedures Procedure Date Related Diagnosis Body Site CEA - Carotid endarterectomy1 Nephrectomy Placement of stent in anterior descendi ng branch of left coronary artery 1Left Social History Social History Type Response Smoking Status Former smoker; Type: Cigare ttes; Stopped at age: 25; Previous treatment: None; Concerns about tobacco use in jany sehold: No; Exposure to Tobacco Smoke None; Cigarette Smoking Last 365 Days No; Reg Smoking Cessation Counseling No Assessment and Plan No data available for this section
--- OUTSIDE RECORDS SUMMARY | 2019-09-28 21:32 | XMS REPORT | Summary of Care ---
Author Author [facility] Organization [facility] Address Unknown Phone Unavailable Encounter SHAYY Zaldivar(OFELIA) [id number] Date(s): 04/08/19 - 04/08/[address] [facility] [address], [address] [place], [place] [address] Discharge Disposition: Home or Self Care Attending Physician: Denia Beck MD Referring Physician: Denia Beck MD Vital Signs Most recent to 1 oldest [Reference Range]: Height 170.18 cm (04/08/19 2:14 PM) Temperature Oral 98.7 DegF [96.4-99.1 DegF] (04/08/19 2:14 PM) Blood Pressure 114/74 mmHg [90-140/60-90 mmHg] (04/08/19 2:14 PM) Respiratory Rate 18 BRMIN [14-20 BRMIN] (04/08/19 2:14 PM) Peripheral Pulse 70 bpm Rate [60-100 bpm] (04/08/19 2:14 PM) Weight 98.693 kg (04/08/19 2:14 PM) Body Mass Index 34.08 m2 (04/08/19 2:14 PM) Problem List Condition Effective Dates Status Health [...] No; Stopped at age: 25; entered on: 04/08/19 Assessment and Plan No data available for this section
--- OUTSIDE RECORDS SUMMARY | 2019-09-28 21:32 | XMS REPORT | Summary of Care ---
Author Author [facility] Organization [facility] Address Unknown Phone Unavailable Encounter SHAYY Zaldivar(OFELIA) [id number] Date(s): 03/16/19 - 03/27/19 [facility] [address] [facility] provided by [facility] [place] [address]- Discharge Disposition: Long Term Facility Attending Physician: Denia Beck MD Admitting Physician: Denia Beck MD Referring Physician: Physician, Non Associated MD Vital Signs 1 2 3 Most recent to oldest [Reference Range]: 177.8 cm (03/27/19 3:53 AM) 177.8 cm (03/26/19 3:34 AM) 177.8 cm (03/25/19 9:30 AM) Height 100.007 kg (03/27/19 3:53 AM) 101 kg (03/26/19 3:34 AM) 97.007 kg (03/25/19 9:30 AM) Current Weight 96.5 DegF (03/26/19 3:27 AM) 97.4 DegF (03/25/19 7:01 PM) 97.8 DegF (03/25/19 4:00 PM) Temperature Oral [96.4-99.1 DegF] 118/58 mmHg (03/27/19 4:00 PM) 102/54 mmHg (03/27/19 2:00 PM) 104/54 mmHg (03/27/19 12:15 PM) Blood Pressure [90-140/60-90 mmHg] 20 BRMIN (03/27/19 4:00 PM) 26 BRMIN *HI* (03/27/19 2:00 PM) 19 BRMIN (03/27/19 12:15 PM) Respiratory Rate [14-20 BRMIN] 84 bpm (03/16/19 5:11 PM) 62 bpm (03/16/19 4:30 PM) 66 bpm (03/16/19 4:00 PM) Peripheral Pulse Rate [60-100 bpm] 100.909 kg (03/16/19 2:59 PM) Weight 31.92 m2 (03/16/19 2:59 PM) Body Mass Index Problem List Condition Effective Dates Status Health Status Informan t Benign essential Resolved HTN(Confirmed) BPH (benign Active prostatic hyperplasia)(Confirm ed) CAD (coronary Resolved atherosclerotic disease)(Confirmed) 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) Renal cell Resolved carcinoma(Confirmed) Allergies, Adverse Reactions, Alerts No Known Medication Allergies Medications acetaminophen 1,000 mg, Route: PO, ONCE, Dosing Weight 100.909, kg, Start date: 03/17/19 8:32: 00 CDT, Stop date: 03/17/19 8:32:00 CDT Start Date: 03/17/19 Stop Date: 03/17/19 Status: Discontinued aspirin 81 mg tablet, enteric coated 81 mg, 1 tab, Route: PO, Drug form: ECTAB, Daily, Dosing Weight 100.909, kg, Sta rt date: 03/17/19 9:00:00 CDT, Duration: 30 day, Stop date: 04/15/19 9:00:00 [employer] , 0 Notes: Do not crush or chew.(Same As: Ecotrin) Start Date: 03/17/19 Stop Date: 03/27/19 Status: Discontinued Ativan 2 mg, 1 mL, Route: IVP, Drug form: INJ, ONCE, Dosing Weight 100.909, kg, Start d ate: 03/17/19 2:20:00 CDT, Stop date: 03/17/19 2:20:00 CDT, 0 Notes: (Same as: Ativan) Start Date: 03/17/19 Stop Date: 03/17/19 Status: Completed Ativan 2 mg, 1 mL, Route: IVP, Drug form: INJ, ONCE, Dosing Weight 100.909, kg, PRN Anx iety, Start date: 03/17/19 4:35:00 CDT, 0 Notes: (Same as: Ativan) Start Date: 03/17/19 Stop Date: 03/17/19 Status: Completed atorvastatin 40 mg, 1 tab, Route: PO, Drug form: TAB, Bedtime, Dosing Weight 100.909, kg, Sta rt date: 03/16/19 21:00:00 CDT, Duration: 30 day, Stop date: 04/14/19 21:00:[address], 0 Notes: (Same as: Lipitor) Start Date: 03/16/19 Stop Date: 03/27/19 Status: Discontinued bisacodyl 10 mg, 1 supp, Route: NH, Drug form: SUPP, ONCE, Dosing Weight 100.909, kg, Star t date: 03/18/19 11:22:00 CDT, Stop date: 03/18/19 11:22:00 CDT, 0 Notes: (Same As: Dulcolax, Bisco-Lax) Start Date: 03/18/19 Stop Date: 03/18/19 Status: Completed bisacodyl 10 mg, 1 supp, Route: NH, Drug form: SUPP, Daily, Dosing Weight 100.909, kg, PRN Constipation, Start date: 03/18/19 11:22:00 CDT, Duration: 30 day, Stop date: 06/17/18 11:21:00 [employer], 0 Notes: (Same As: Dulcolax, Bisco-Lax) Start Date: 03/18/19 Stop Date: 03/27/19 Status: Discontinued clopidogrel 75 mg, Route: PO, Drug form: TAB, Daily, Dosing Weight 100.909, kg, Start date: 03/17/19 9:00:00 CDT, Duration: 30 day, Stop date: 04/15/19 9:00:00 [employer] Start Date: 03/17/19 Stop Date: 03/27/19 Status: Discontinued Colace 100 mg oral capsule 100 mg, 1 cap, Route: PO, BID, Dosing Weight 100.909, kg, Start date: 03/19/19 1 7:00:00 CDT, Duration: 30 day, Stop date: 04/18/19 9:00:00 [employer] Start Date: 03/19/19 Stop Date: 03/19/19 Status: Canceled docusate sodium 100 mg oral capsule 100 mg, 1 cap, Route: PO, Drug form: CAP, BID, Dosing Weight 100.909, kg, Start date: 03/18/19 17:00:00 CDT, Duration: 30 day, Stop date: 04/17/19 9:00:00 [employer], 0 Notes: (Same as: Colace) (Do Not Crush) Start Date: 03/18/19 Stop Date: 03/27/19 Status: Discontinued Flomax 0.4 mg, 1 cap, Route: PO, Drug form: CAP, Daily, Start date: 03/17/19 9:00:00 CD T, Duration: 30 day, Stop date: 04/15/19 9:00:00 [employer], 0 Start Date: 03/17/19 Stop Date: 03/27/19 Status: Discontinued Haldol 2.5 mg, 0.5 mL, Route: IV, Drug form: INJ, ONCE, Dosing Weight 100.909, kg, Star t date: 03/25/19 3:22:00 [employer], Stop date: 03/25/19 3:22:00 [employer], 0 Notes: (Same as: Haldol) Start Date: 03/25/19 Stop Date: 03/25/19 Status: Completed Haldol 2.5 mg, 0.5 mL, Route: IV, Drug form: INJ, ONCE, Dosing Weight 100.909, kg, Star t date: 03/26/19 0:32:00 [employer], Stop date: 03/26/19 0:32:00 [employer], 0 Notes: (Same as: Haldol) Start Date: 03/26/19 Stop Date: 03/26/19 Status: Completed Haldol 1 mg, 0.2 mL, Route: IV, Drug form: INJ, ONCE, Dosing Weight 100.909, kg, Start date: 03/17/19 0:57:00 CDT, Stop date: 03/17/19 0:57:00 CDT, 0 Notes: (Same as: Haldol) Start Date: 03/17/19 Stop Date: 03/17/19 Status: Completed hydrALAZINE 10 mg, 0.5 mL, Route: IV, Drug form: INJ, Q6H, Dosing Weight 100.909, kg, PRN Hy pertension, Start date: 03/17/19 7:38:00 CDT, Duration: 30 day, Stop date: 04/16 7:37:00 [employer], 0 Notes: (Same as: Apresoline)Push over 5 minutes Start Date: 03/17/19 Stop Date: 03/27/19 Status: Discontinued ipratropium 0.5 mg, 2.5 mL, Route: NEB, Drug form: SOLN, RQ6H, Dosing Weight 100.909, kg, St art date: 03/19/19 20:00:00 CDT, Duration: 30 day, Stop date: 04/18/19 14:00:00 [employer], 0 Notes: SEE RT DOCUMENTATION(Same as:Atrovent) Start Date: 03/19/19 Stop Date: 03/26/19 Status: Discontinued ipratropium 0.02% inhalation solution 0.5 mg, 2.5 mL, Route: NEB, Drug form: SOLN, RQ6H, Dosing Weight 100.909, kg, NH N Respiratory Pathway, Start date: 03/19/19 3:08:00 CDT, Duration: 30 day, Stop date: 04/18/19 3:07:00 [employer], 0 Notes: SEE RT DOCUMENTATION(Same as:Atrovent) Start Date: 03/19/19 Stop Date: 03/26/19 Status: Discontinued Keppra 500 mg, 1 tab, Route: PO, Drug form: TAB, BID, Dosing Weight 100.909, kg, Start date: 03/17/19 9:00:00 CDT, Duration: 30 day, Stop date: 04/15/19 17:00:00 [employer], 0 Notes: (Same as:Keppra) Start Date: 03/17/19 Stop Date: 03/17/19 Status: Canceled Keppra + Sodium Chloride 0.9% IV 100 mL 500 mg, Route: IVPB, Q12H, Dosing Weight 100.909, kg, Start date: 03/17/19 9:00: 00 CDT, Duration: 30 day, Stop date: 04/15/19 21:00:00 [employer], 0 Notes: Same as KeppraMix with 100 mL NS, LR or D5W MEDICATION WASTE Prod uct Size: 500 mgProduct Wasted: ___ mg Start Date: 03/17/19 Stop Date: 03/19/19 Status: Discontinued Keppra + Sodium Chloride 0.9% IV 100 mL 1,000 mg, Route: IV, ONCE, Dosing Weight 100.909, kg, Start date: 03/16/19 15:23 :00 CDT, Stop date: 03/16/19 15:23:00 CDT, 0 Notes: Same as KeppraMix with 100 mL NS, LR or D5W MEDICATION WASTE Prod uct Size: 500 mgProduct Wasted: ___ mg Start Date: 03/16/19 Stop Date: 03/16/19 Status: Completed Keppra 500 mg oral tablet 500 mg, 1 tab, Route: PO, Drug form: TAB, Q12H, Dosing Weight 100.909, kg, Start date: 03/19/19 21:00:00 CDT, Duration: 30 day, Stop date: 04/18/19 9:00:00 [employer], 0 Notes: (Same as:Keppra) Start Date: 03/19/19 Stop Date: 03/19/19 Status: Canceled Keppra 500 mg oral tablet 500 mg, 1 tab, Route: PO, Drug form: TAB, Q12H, Dosing Weight 100.909, kg, Start date: 03/19/19 21:00:00 CDT, Stop date: 03/23/19 22:00:00 [employer], 0 Notes: (Same as:Keppra) Start Date: 03/19/19 Stop Date: 03/23/19 Status: Completed Kristalose 20 gm, 30 ml, Route: PO, Drug form: SYRP, ONCE, Dosing Weight 100.909, kg, PRN C onstipation, Start date: 03/20/19 17:36:00 CDT, 0 Notes: (Same as:Chronulac) Start Date: 03/20/19 Stop Date: 03/20/19 Status: Completed Lasix 40 mg, 4 mL, Route: IVP, Drug form: INJ, Q12H, Dosing Weight 100.909, kg, Start date: 03/17/19 7:30:00 CDT, Duration: 30 day, Stop date: 04/15/19 21:00:00 [employer], 0 Notes: (Same as: Lasix) MEDICATION WASTE Product Size: 40 mgProduct Was steff: ___ mg Start Date: 03/17/19 Stop Date: 03/18/19 Status: Discontinued Lasix 40 mg, Route: IVP, Drug form: INJ, Daily, Dosing Weight 100.909, kg, Start date: 03/19/19 9:00:00 CDT, Duration: 30 day, Stop date: 04/17/19 9:00:00 [employer], 0 Start Date: 03/19/19 Stop Date: 03/18/19 Status: Canceled Lasix 40 mg oral tablet 20 mg, 1 tab, Route: PO, Drug form: TAB, Daily, Dosing Weight 100.909, kg, Start date: 03/17/19 9:00:00 CDT, Duration: 30 day, Stop date: 04/15/19 9:00:00 [employer], 0 Notes: (Same as: Lasix) May cause GI upset. Give with food or milk. Start Date: 03/17/19 Stop Date: 03/17/19 Status: Canceled Lasix 40 mg oral tablet 40 mg, 1 tab, Route: PO, Drug form: TAB, Daily, Dosing Weight 100.909, kg, Start date: 03/19/19 9:00:00 CDT, Duration: 30 day, Stop date: 04/17/19 9:00:00 [employer], 0 Notes: (Same as: Lasix) May cause GI upset. Give with food or milk. Start Date: 03/19/19 Stop Date: 03/27/19 Status: Discontinued magnesium citrate 1.745 g/30 mL oral liquid 300 mL, Route: PO, Drug Form: LIQ, Dosing Weight 100.909, kg, ONCE, Start date: 03/19/19 15:35:00 CDT, Stop date: 03/19/19 15:35:00 CDT, 0 Notes: (Same as: Citrate of Magnesia)Concentration: 1.745 gm / 30 mL Start Date: 03/19/19 Stop Date: 03/19/19 Status: Completed melatonin 3 mg oral tablet 3 mg, 1 tab, Route: PO, Drug Form: TAB, Dosing Weight 100.909, kg, Bedtime, Star t date: 03/23/19 21:00:00 [employer], Duration: 30 day, Stop date: 04/21/19 21:00:00 CS T, 0 Notes: (Same as: Melatonin) Start Date: 03/23/19 Stop Date: 03/24/19 Status: Discontinued melatonin 3 mg oral tablet 3 mg, 1 tab, Route: PO, Drug Form: TAB, Dosing Weight 100.909, kg, Q24H, Start d ate: 03/24/19 20:00:00 [employer], Duration: 30 day, Stop date: 04/22/19 20:00:00 [employer], 0 Notes: (Same as: Melatonin) Start Date: 03/24/19 Stop Date: 03/27/19 Status: Discontinued metoprolol tartrate 25 mg, 1 tab, Route: PO, Drug form: TAB, Q12H, Dosing Weight 100.909, kg, Start date: 03/21/19 9:00:00 CDT, Duration: 30 day, Stop date: 04/19/19 21:00:00 [employer], 0 Notes: (Same as: Lopressor) Start Date: 03/21/19 Stop Date: 03/27/19 Status: Discontinued metoprolol tartrate 25 mg oral tablet 25 mg = 1 tab, PO, Q12H, # 60 tab, 0 Refill(s), Pharmacy: [facility] # [id number] Start Date: 03/27/19 Stop Date: 03/27/19 Status: Completed metoprolol tartrate 25 mg oral tablet 25 mg = 1 tab, PO, Q12H, # 60 tab, 0 Refill(s) Start Date: 03/27/19 Status: Ordered nitroglycerin 0.4 mg sublingual tablet 0.4 mg = 1 tab, SL, Q5Min, PRN Chest Pain, # 30 tab, 0 Refill(s) Start Date: 03/27/19 Stop Date: 04/26/19 Status: Ordered Pulmicort Respules 0.5 mg/2 mL inhalation suspension 0.5 mg, 2 mL, Route: NEB, Drug form: SUSP, RBID, Dosing Weight 100.909, kg, Star t date: 03/19/19 15:50:00 CDT, Duration: 30 day, Stop date: 04/18/19 8:00:00 [employer] , 0 Notes: (Same As: Pulmicort) Start Date: 03/19/19 Stop Date: 03/27/19 Status: Discontinued Pulmicort Respules 0.5 mg/2 mL inhalation suspension 0.5 mg, 2 mL, Route: NEB, Drug form: SUSP, Q12H, Dosing Weight 100.909, kg, Star t date: 03/19/19 9:00:00 CDT, Duration: 30 day, Stop date: 04/17/19 21:00:00 [employer] , 0 Notes: (Same As: Pulmicort) Start Date: 03/19/19 Stop Date: 03/19/19 Status: Discontinued QUEtiapine 25 mg oral tablet 37.5 mg = 1.5 tab, PO, Q24H, # 45 tab, 0 Refill(s), Pharmacy: [facility] #[id number] Start Date: 03/27/19 Stop Date: 03/27/19 Status: Completed QUEtiapine 25 mg oral tablet 37.5 mg = 1.5 tab, PO, Q24H, # 45 tab, 0 Refill(s) Start Date: 03/27/19 Status: Ordered Rapaflo 8 mg oral capsule Rapaflo 8 mg oral capsule, 8 mg, Drug form: CAP, Route: PO, Daily, 03/17/19 9:00 :00 CDT, Duration: 30 day, Stop date: 04/15/19 9:00:00 [employer] Start Date: 03/17/19 Stop Date: 03/16/19 Status: Discontinued Reglan 10 mg, 2 mL, Route: IVP, Drug form: INJ, Q6H, Dosing Weight 100.909, kg, Priorit y: NOW, Start date: 03/19/19 15:35:00 CDT, Duration: 3 day, Stop date: 03/22/19 12:00:00 [employer], 0 Notes: (Same as: Reglan) Start Date: 03/19/19 Stop Date: 03/22/19 Status: Completed senna 8.6 mg oral tablet 17.2 mg, 2 tab, Route: PO, Drug Form: TAB, Dosing Weight 100.909, kg, Bedtime, S tart date: 03/19/19 21:00:00 CDT, Duration: 30 day, Stop date: 04/17/19 21:00:00 [employer], 0 Notes: (Same as: Senokot) Start Date: 03/19/19 Stop Date: 03/27/19 Status: Discontinued SEROquel 12.5 mg, 0.5 tab, Route: PO, Drug form: TAB, Bedtime, Dosing Weight 100.909, kg, Priority: NOW, Start date: 03/17/19 17:43:00 CDT, Duration: 30 day, Stop date: 04/15/19 21:00:00 [employer], 0 Notes: (Same as: SEROquel)12.5 mg = 1/2 x 25 mg tab Start Date: 03/17/19 Stop Date: 03/24/19 Status: Discontinued SEROquel 37.5 mg, 1.5 tab, Route: PO, Drug form: TAB, Q24H, Dosing Weight 100.909, kg, St art date: 03/24/19 20:00:00 [employer], Duration: 30 day, Stop date: 04/22/19 20:00:00 [employer], 0 Notes: (Same as: SEROquel)12.5 mg = 1/2 x 25 mg tab Start Date: 03/24/19 Stop Date: 03/27/19 Status: Discontinued simethicone 80 mg, 1 tab, Route: CHEW, Drug form: CHEWTAB, Q6H, Dosing Weight 100.909, kg, P riority: NOW, Start date: 03/19/19 15:35:00 CDT, Duration: 30 day, Stop date: 12:00:00 [employer], 0 Notes: (Same as: Mylicon) Start Date: 03/19/19 Stop Date: 03/27/19 Status: Discontinued simethicone 80 mg, 1 tab, Route: CHEW, Drug form: CHEWTAB, TID, Dosing Weight 100.909, kg, S tart date: 03/18/19 13:00:00 CDT, Duration: 30 day, Stop date: 04/17/19 9:00:00 [employer], 0 Notes: (Same as: Mylicon) Start Date: 03/18/19 Stop Date: 03/19/19 Status: Discontinued simethicone 80 mg oral tablet, chewable 80 mg = 1 tab, CHEW, Q6H, # 90 tab, 0 Refill(s), Pharmacy: [facility] #[id number] Start Date: 03/27/19 Stop Date: 04/16/19 Status: Ordered tamsulosin 0.4 mg oral capsule 0.4 mg = 1 cap, PO, Daily, # 30 cap, 0 Refill(s), Pharmacy: [facility] #[id number] Start Date: 03/27/19 Status: Ordered Toprol-XL 50 mg oral tablet, extended release 50 mg, 1 tab, Route: PO, Drug form: ERTAB, Daily, Start date: 03/17/19 9:00:00 C DT, Duration: 30 day, Stop date: 04/15/19 9:00:00 [employer] Start Date: 03/17/19 Stop Date: 03/22/19 Status: Discontinued Versed 2 mg, 2 mL, Route: IVP, Drug form: INJ, ONCE, Dosing Weight 100.909, kg, Start d ate: 03/17/19 1:28:00 CDT, Stop date: 03/17/19 1:28:00 CDT, 0 Notes: (Same as: Versed) MEDICATION WASTE Product Size: 2 mgProduct Was steff: ___ mg Start Date: 03/17/19 Stop Date: 03/17/19 Status: Discontinued ZyPREXA 7.5 mg, Route: IM, Drug form: INJ, BID, Dosing Weight 100.909, kg, PRN Agitation , Start date: 03/26/19 15:34:00 [employer], Duration: 10 day, Stop date: 04/05/19 15:33 :00 [employer], 0 Notes: (Same As: ZyPREXA IM). Reconstitute with 2.1 ml sterile water for inject ion; use within 1 hour after reconstitution. For IM use only; do not administer IV or SUB-Q. Start Date: 03/26/19 Stop Date: 03/27/19 Status: Discontinued Results 1 2 3 Most recent to oldest [Reference Range]: 6.7 K/CMM (03/27/19 5:08 AM) 6.6 K/CMM (03/26/19 4:32 AM) 6.7 K/CMM (03/25/19 4:20 AM) Neutrophils # [1.5-8.1 K/CMM] 1.4 K/CMM (03/27/19 5:08 AM) 1.5 K/CMM (03/26/19 4:32 AM) 1.3 K/CMM (03/25/19 4:20 AM) Lymphocytes # [1.0-5.5 K/CMM] 0.8 K/CMM (03/27/19 5:08 AM) 0.9 K/CMM *HI* (03/26/19 4:32 AM) 0.8 K/CMM (03/25/19 4:20 AM) Monocytes # [0.0-0.8 K/CMM] 0.3 K/CMM (03/27/19 5:08 AM) 0.3 K/CMM (03/26/19 4:32 AM) 0.3 K/CMM (03/25/19 4:20 AM) Eosinophils # [0.0-0.5 K/CMM] 0.1 K/CMM (03/25/19 4:20 AM) 0.1 K/CMM (03/24/19 3:00 AM) 0.1 K/CMM (03/22/19 4:37 AM) Basophils # [0.0-0.2 K/CMM] 13.5 K d/sc *HI* (03/16/19 3:50 PM) G-value Rapid [5.0-11.6 K d/sc] 0.8 minutes (03/16/19 3:50 PM) K-time Rapid [0.6-2.3 minutes] 73 mm *HI* (03/16/19 3:50 PM) Max Amplitude Rapid [52-71 mm] 0.5 minutes (03/16/19 3:50 PM) R-time Rapid [0.4-0.7 minutes] 81 degrees *HI* (03/16/19 3:50 PM) Angle Rapid [64-80 degrees] 58 mL/min/1.73m2 1 *NA* (03/27/19 5:08 AM) 61 mL/min/1.73m2 2 *NA* (03/26/19 4:32 AM) 60 mL/min/1.73m2 3 *NA* (03/25/19 4:20 AM) eGFR O POS *Unknown* (03/16/19 4:38 PM) ABO/Rh 0.6 *LOW* (03/26/19 4:32 AM) 0.7 (03/17/19 1:44 PM) A/G Ratio [0.7-1.6] Negative (03/16/19 4:38 PM) Antibody Scrn 2.1 g/dL *LOW* (03/26/19 4:32 AM) 2.6 g/dL *LOW* (03/17/19 1:44 PM) Albumin Lvl [3.5-5.0 g/dL] 84 unit/L (03/26/19 4:32 AM) 78 unit/L (03/17/19 1:44 PM) Alk Phos [39-136 unit/L] 19 unit/L (03/26/19 4:32 AM) 10 unit/L (03/17/19 1:44 PM) ALT [0-65 unit/L] 5.0 mEq/L *LOW* (03/27/19 5:08 AM) 6.8 mEq/L *LOW* (03/26/19 4:32 AM) 8.7 mEq/L *LOW* (03/25/19 4:20 AM) AGAP [10.0-20.0 mEq/L] 17 unit/L (03/26/19 4:32 AM) 19 unit/L (03/17/19 1:44 PM) AST [0-37 unit/L] 25 (03/26/19 4:32 AM) 24 (03/17/19 1:44 PM) B/C Ratio [6-25] 0.5 % (03/27/19 5:08 AM) 0.4 % (03/26/19 4:32 AM) 0.6 % (03/25/19 4:20 AM) Basophils [0.0-1.0 %] 23 mg/dL *HI* (03/27/19 5:08 AM) 27 mg/dL *HI* (03/26/19 4:32 AM) 28 mg/dL *HI* (03/25/19 4:20 AM) BUN [7-22 mg/dL] 9.0 mg/dL (03/27/19 5:08 AM) 9.0 mg/dL (03/26/19 4:32 AM) 9.3 mg/dL (03/25/19 4:20 AM) Calcium Lvl [8.5-10.5 mg/dL] 103 mEq/L (03/27/19 5:08 AM) 104 mEq/L (03/26/19 4:32 AM) 104 mEq/L (03/25/19 4:20 AM) Chloride Lvl [95-109 mEq/L] 32 mEq/L (03/27/19 5:08 AM) 33 mEq/L *HI* (03/26/19 4:32 AM) 32 mEq/L (03/25/19 4:20 AM) CO2 [24-32 mEq/L] 1.12 mg/dL (03/27/19 5:08 AM) 1.08 mg/dL (03/26/19 4:32 AM) 1.09 mg/dL (03/25/19 4:20 AM) Creatinine Lvl [0.50-1.40 mg/dL] 3.6 % (03/27/19 5:08 AM) 3.4 % (03/26/19 4:32 AM) 2.8 % (03/25/19 4:20 AM) Eosinophils [0.0-4.0 %] 3.8 g/dL (03/26/19 4:32 AM) 3.9 g/dL (03/17/19 1:44 PM) Globulin [2.7-4.2 g/dL] 117 mg/dL *HI* (03/27/19 5:08 AM) 118 mg/dL *HI* (03/26/19 4:32 AM) 132 mg/dL *HI* (03/25/19 4:20 AM) Glucose Lvl [70-99 mg/dL] 32.9 % *LOW* (03/27/19 5:08 AM) 30.4 % *LOW* (03/26/19 4:32 AM) 34.0 % *LOW* (03/25/19 4:20 AM) Hct [42.0-54.0 %] 10.8 g/dL *LOW* (03/27/19 5:08 AM) 10.5 g/dL *LOW* (03/26/19 4:32 AM) 11.4 g/dL *LOW* (03/25/19 4:20 AM) Hgb [14.0-18.0 g/dL] 1.04 (03/16/19 3:50 PM) INR [0.85-1.17] 5.0 mEq/L (03/27/19 5:08 AM) 4.8 mEq/L (03/26/19 4:32 AM) 4.7 mEq/L (03/25/19 4:20 AM) Potassium Lvl [3.5-5.1 mEq/L] 15.3 % *LOW* (03/27/19 5:08 AM) 15.9 % *LOW* (03/26/19 4:32 AM) 14.1 % *LOW* (03/25/19 4:20 AM) Lymphocytes [20.0-40.0 %] 32.0 pg *HI* (03/27/19 5:08 AM) 33.5 pg *HI* (03/26/19 4:32 AM) 32.3 pg *HI* (03/25/19 4:20 AM) MCH [27.0-31.0 pg] 32.9 g/dL (03/27/19 5:08 AM) 34.5 g/dL (03/26/19 4:32 AM) 33.5 g/dL (03/25/19 4:20 AM) MCHC [32.0-36.0 g/dL] 97.1 fL *HI* (03/27/19 5:08 AM) 97.2 fL *HI* (03/26/19 4:32 AM) 96.5 fL *HI* (03/25/19 4:20 AM) MCV [80.0-94.0 fL] 2.4 mg/dL (03/27/19 5:08 AM) 2.5 mg/dL *HI* (03/26/19 4:32 AM) 2.5 mg/dL *HI* (03/25/19 4:20 AM) Magnesium Lvl [1.8-2.4 mg/dL] 9.1 % (03/27/19 5:08 AM) 10.0 % (03/26/19 4:32 AM) 8.7 % (03/25/19 4:20 AM) Monocytes [2.0-12.0 %] 7.0 fL *LOW* (03/27/19 5:08 AM) 7.2 fL *LOW* (03/26/19 4:32 AM) 7.3 fL *LOW* (03/25/19 4:20 AM) MPV [7.4-10.4 fL] 135 mEq/L (03/27/19 5:08 AM) 139 mEq/L (03/26/19 4:32 AM) 140 mEq/L (03/25/19 4:20 AM) Sodium Lvl [135-145 mEq/L] 3.8 mg/dL (03/27/19 5:08 AM) 3.2 mg/dL (03/26/19 4:32 AM) 3.1 mg/dL (03/25/19 4:20 AM) Phosphorus [2.5-4.5 mg/dL] 239 K/CMM (03/27/19 5:08 AM) 256 K/CMM (03/26/19 4:32 AM) 237 K/CMM (03/25/19 4:20 AM) Platelet [133-450 K/CMM] 71.5 % (03/27/19 5:08 AM) 70.3 % (03/26/19 4:32 AM) 73.8 % (03/25/19 4:20 AM) Segs [45.0-75.0 %] 5.9 g/dL *LOW* (03/26/19 4:32 AM) 6.5 g/dL (03/17/19 1:44 PM) Total Protein [6.4-8.4 g/dL] 13.4 seconds (03/16/19 3:50 PM) PT [12.0-14.7 seconds] 24.6 seconds (03/16/19 3:50 PM) PTT [22.9-35.8 seconds] 3.39 M/CMM *LOW* (03/27/19 5:08 AM) 3.13 M/CMM *LOW* (03/26/19 4:32 AM) 3.52 M/CMM *LOW* (03/25/19 4:20 AM) RBC [4.70-6.10 M/CMM] 14.4 % (03/27/19 5:08 AM) 14.3 % (03/26/19 4:32 AM) 14.3 % (03/25/19 4:20 AM) RDW [11.5-14.5 %] 0.7 mg/dL (03/26/19 4:32 AM) 1.4 mg/dL *HI* (03/17/19 1:44 PM) Bili Total [0.2-1.3 mg/dL] 0.08 ng/mL (03/16/19 3:50 PM) Troponin-I [0.00-0.40 ng/mL] Occasional /HPF *NA* (03/17/19 8:05 AM) UA Amorph Sharifa [None Seen /HPF] Occasional /HPF *NA* (03/17/19 8:05 AM) UA Bacteria [None Seen /HPF] Negative *NA* (03/17/19 8:05 AM) UA Bili [Negative] Small *ABN* (03/17/19 8:05 AM) UA Blood [Negative] Light Yellow *NA* (03/17/19 8:05 AM) UA Color [Yellow] Negative mg/dL *NA* (03/17/19 8:05 AM) UA Glucose [Negative mg/dL] Negative mg/dL *NA* (03/17/19 8:05 AM) UA Ketones [Negative mg/dL] Negative (03/17/19 8:05 AM) UA Leuk Est [Negative] Negative (03/17/19 8:05 AM) UA Nitrite [Negative] 7.0 (03/17/19 8:05 AM) UA pH [5.0-8.0] 30 mg/dL *ABN* (03/17/19 8:05 AM) UA Protein [Negative mg/dL] <1 /HPF (03/17/19 8:05 AM) UA RBC [0-2 /HPF] 8 /LPF *HI* (03/17/19 8:05 AM) UA Renal Epi [<=0 /LPF] 1.014 (03/17/19 8:05 AM) UA Spec Grav [<=1.030] Occasional /LPF *NA* (03/17/19 8:05 AM) UA Sq Epi [Few /LPF] Clear (03/17/19 8:05 AM) UA Turbidity [Clear] <1.0 mg/dL (03/17/19 8:05 AM) UA Urobilinogen [0.1-1.0 mg/dL] <1 /HPF (03/17/19 8:05 AM) UA WBC [0-5 /HPF] 9.3 K/CMM (03/27/19 5:08 AM) 9.4 K/CMM (03/26/19 4:32 AM) 9.0 K/CMM (03/25/19 4:20 AM) WBC [3.7-10.4 K/CMM] 97 seconds (03/16/19 3:50 PM) ACT (TEG) Rapid [86-118 seconds] 0.0 % (03/16/19 3:50 PM) Estimated % Lysis Rapid [0.0-7.5 %] 0.4 minutes *NA* (03/16/19 3:50 PM) [place] Rapid 1.19 mMol/L (03/27/19 5:08 AM) 1.15 mMol/L (03/26/19 4:32 AM) 0.95 mMol/L *LOW* (03/25/19 5:44 AM) Ca Ion WB [1.05-1.25 mMol/L] 1.19 mMol/L (03/27/19 5:08 AM) 1.17 mMol/L (03/26/19 4:32 AM) 1.02 mMol/L *LOW* (03/25/19 5:44 AM) Ca Norm WB [1.05-1.25 mMol/L] 1Result Comment: The eGFR is calculated using [...] be mul tiplied by the estimated BMI. 2Result Comment: The eGFR is calculated using the [...] be mul tiplied by the estimated BMI. 3Result Comment: The eGFR is calculated using the [...] be mul tiplied by the estimated BMI. 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 Evans is a 89 year old male with PMH of HTN, severe s/p TAVR, ischemic cardiomyopathy (most recent LVEF 60%), RCC s/p nephrectomy, carotid stenosis s/p L CEA, CAD s/p PCI to LAD and LCx that presented to [facility] after a syncope episode s/p mechanical fall with head trauma. The patient reports waking up this morning, then passing out while getting out of bed. He was found on the ground by family members unresponsive and was taken to the OSH. CT brain at the OSH suggested a right parafalcine 8 mm SDH with no mass effect. GCS was 15, placed on a cardene drip and transferred to [facility] for HLOC. On arrival, repeat CT brain showed stable SDH with CT spine cervical demonstrating C6 fracture. Neuro surgery was consulted. EKG was consistent with complete HB. EP was consulted for PPM placement. On the unit, the patient is awake, alert and hemodynamically stable on NC. He denies any fevers, chills, CP, SOB or N/V. IN ICU: Acute hypoxemia previous night, requiring NRB then vapotherm. Improved with aggressive suctioning. Continue to wean vapotherm. Page ortho regarding less restricting brace. INTERVAL EVENTS: -still with mild agitation last night. Currently sitting up in the chair. Denies dyspnea. On 2L NC. Not on home O2 or inhalers. Review of Systems Constitutional: No fever, No chills. Eye: No icterus. Respiratory: No shortness of breath, No cough. Cardiovascular: No chest pain, No peripheral edema. Gastrointestinal: Constipation, Abdominal pain. Genitourinary: No dysuria, No hematuria. Integumentary: Skin lesion, No rash, No pruritus. Neurologic: Alert and oriented X4. Foot Pain Health Status Allergies: Allergies (1) ActiveReaction No Known Medication AllergiesNone Documented Current medications: Medications (13) Active Scheduled: (10) aspirin 81 mg ECT 81 mg 1 tab, PO, Daily atorvastatin 40mg tab 40 mg 1 tab, PO, Bedtime budesonide 0.5 mg/2ml neb SUSP 0.5 mg 2 mL, NEB, RBID docusate sodium 100 mg CAP 100 mg 1 cap, PO, BID melatonin 3 mg TAB 3 mg 1 tab, PO, Q24H metoprolol tartrate 25 mg TAB 25 mg 1 tab, PO, Q12H QUEtiapine 12.5 mg (1/2 of 25 mg) TAB 37.5 mg 1.5 tab, PO, Q24H senna 8.6 mg TAB 17.2 mg 2 tab, PO, Bedtime simethicone 80 mg CHEW 80 mg 1 tab, CHEW, Q6H tamsulosin 0.4 mg CAP 0.4 mg 1 cap, PO, Daily Continuous: (0) PRN: (3) bisacodyl 10 mg rect SUPP 10 mg 1 supp, NH, Daily hydrALAZINE 20 mg/1 ml VL 10 mg 0.5 mL, IV, Q6H OLANZapine 10 mg INJ 7.5 mg, IM, BID Physical Examination VitalsTmp(F)[id number] 03/27 10:00----[id number]--- 03/27 08:48 98 2.0L/m 03/27 08:00----[id number]--- 03/27 07:5095.6 03/27 06:00----[id number]--- 24 Hr Tmax: 98.5F (36.94c) at 03/26 20:1 0Vital Signs are the last 5 in the past 48 hours. I&ORecordInOutBal 03/824hr Tot 240 0 240 03/724hr Tot 556 150 406 VS/Measurements Measurements from flowsheet : Measurements 03/27/2019 03:53 Heparin Dosing Weight (kg) 84.16 03/27/2019 03:53 Height 177.8 cm Height Collection Method Measured Weight Collection Method Measured Current Weight 100.007 kg Weight Difference Percent -0.983 % Body Mass Index-Current 31.63 m2 03/26/2019 03:34 Heparin Dosing Weight (kg) 84.16 03/26/2019 03:34 Height 177.8 cm Height Collection Method Measured Weight Collection Method Measured Current Weight 101 kg Weight Difference Percent 4.116 % Body Mass Index-Current 31.95 m2 , Vital Signs (last 24 hrs) Last Charted Temp Zmwtrsef89.6 DegF (MAR 27 07:50) Heart Rate Dbvqkf16 bpm (MAR 27 10:00) Resp Rate 20 BRMIN (MAR 27 10:00) QNS079 mmHg (MAR 27 10:00) DBPL 52mmHg (MAR 27 10:00) Krndbq476.8 cm (MAR 27 03:53) Gen: AAOx3; NAD. with Neck brace Neuro: No focal deficits appreciated HEENT: PERRL; EOMI; No scleral icterus CV/Pulses: RRR; 2+ peripheral pulses Pulm: Decreased breath sounds at the bases; No wheezing, few rales, non labored GI: BS (+); Soft; NTND : Deferred MS: Tone intact Skin/Ext: No changes in lesions; 1- 2+ pitting edema Review / Management Results review: Labs (Last four charted values) WBC 9.3(MAR 27)9.4(MAR 26)9.0(MAR 25)9.8(MAR 24) Hgb L 10.8(MAR 27)L 10.5(MAR 26)L 11.4(MAR 25)L 11.4(MAR 24) Hct L 32.9(MAR 27)L 30.4(MAR 26)L 34.0(MAR 25)L 34.0(MAR 24) Plt 239(MAR 27)256(MAR 26)237(MAR 25)240(MAR 24) Na 135(MAR 27)139(MAR 26)140(MAR 25)140(MAR 24) K 5.0(MAR 27)4.8(MAR 26)4.7(MAR 25)4.7(MAR 24) CO2 32(MAR 27)H 33(MAR 26)32(MAR 25)32(MAR 24) Cl 103(MAR 27)104(MAR 26)104(MAR 25)104(MAR 24) Cr 1.12(MAR 27)1.08(MAR 26)1.09(MAR 25)1.16(MAR 24) BUN H 23(MAR 08)H 27(MAR 07)H 28(MAR 25)H 31(MAR 24) Glucose Random H 117(MAR 08)H 118(MAR 26)H 132(MAR 25)H 140(MAR 24) Mg 2.4(MAR 27)H 2.5(MAR 26)H 2.5(MAR 25)H 3.0(MAR 24) Phos 3.8(MAR 27)3.2(MAR 26)3.1(MAR 25)3.3(MAR 24) Ca 9.0(MAR 27)9.0(MAR 26)9.3(MAR 25)9.4(MAR 24) PT 13.4(MAR 16) INR 1.04(MAR 16) PTT 24.6(MAR 16) Troponin 0.08(MAR 16). Radiology results Reviewed radiologist's report chest xray 03/26/19 FINDINGS: Comparison is made to March 19. Cardiomediastinal silhouette is unchanged with TAVR. There is a midline brace over the chest. Bipolar left subclavian pacemaker remains in place. Lungs are low in volume with bibasilar platelike atelectasis. No definite pleural effusions. IMPRESSION: The lungs are low in volume with bibasilar platelike atelectasis. 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 -Continue OOB to chair as tolerated and continue PT/OT. -D/c Atrovent nebs since he's anticholin ergic and may contribute to his delirium. -Continue Seroquel 37.5 mg qHS and will add PRN Zyprexa IM 7.5mg BID. -If delirium persist, consider checking UA to r/o UTI (was unremarkable on 03/17/19). -Continue weaning O2 supplement. Need b arlet O2 pulse oximetry given poor waveform. -brace recommendations per Ortho team, f ollow up -also will need follow up outpatient at the pulmonary clinic - pending transfer to outpatient rehab Discussed with Dr Boyer. Lucille Figueroa DNP [facility] #[id number] Addendum I have seen and examined th e patient with Lucille Figueroa NP on 03/27/19. I agree with by Merlin, her assessment and plan as documented. Arnoldo Berger REVIEW OF SYSTEMS: on Constit: Denies Fever Night sweats 03/27/2019 HEENT: Denies Headaches Dys phagia 23:04 Pulm: per Events CV: per Events GI: Denies Abd pain Nausea Vomiting : Denies Hematuria Dysuria MS: Denies Myalgias Fall Neuro: Denies Numbness/Tingling Syncope Skin: Denies New rashes Hemo/Lymph: Denies Jaundice Bleeding Arnoldo Boyer M.D. Pul[facility] MS[facility] # [id number] Pager # [phone] Extracted from: Title: EP Consultation Note Author: Og Jackson Date: 03/17/19 History of Present Illness 89 yo male with PMH significant for isch emic cardiomyopathy (LVEF improved on recent Echo 60%), CAD s/p PCI to LAD and s/p PCI to LCx at bifurcation to first OM with Impella assist (07/04/15), carotid artery stenosis s/p L CEA (10/2012), RCC s/p nephrectomy and HTN, severe s/p TAVR (29mm Levy S3 29 mm 03/11/19) presenting after an episode of dizziness with subsequent fall. Noncompressive right parafalcine subdural hematoma noted on CTH which was stable on repeat imaging. ECG consistent with high degree AV block. EP was consulted and patient was immediately taken to the director of labor relations for PPM. Patient is now s/p Dual Chamber PPM. Review of Systems Constitutional: No fever, No chills. Respiratory: No shortness of breath, No cough. Gastrointestinal: No nausea, No vomiting, No diarrhea, No constipation. Genitourinary: No dysuria, No hematuria. Hematology/Lymphatics: No bruising tendency, No bleeding tendency. Endocrine: No excessive thirst, No polyuria. Immunologic: Not immunocompromised, No recurrent fevers. Integumentary: No rash, No pruritus. Neurologic: Alert and oriented X4, No abnormal balance. Psychiatric: No anxiety, No depression. Health Status Allergies: Allergic Reactions (Selected) No Known Medication Allergies, Allergies (1) ActiveReaction No Known Medication AllergiesNone Documented Current medications: (Selected) Inpatient Medications Ordered Flomax: 0.4 mg, 1 cap, PO, Daily Keppra + Sodium Chloride 0.9% IV 100 mL: 500 mg, 400 ml/hr, IVPB, Q12H Lasix: 40 mg, 4 mL, IVP, Q12H atorvastatin: 40 mg, 1 tab, PO, Bedtime hydrALAZINE: 10 mg, 0.5 mL, IV, Q6H, PRN: Hypertension Suspended Toprol-XL 50 mg oral tablet, extended release: 50 mg, 1 tab, PO, Daily aspirin 81 mg tablet, enteric coated: 81 mg, 1 tab, PO, Daily clopidogrel: 75 mg, PO, Daily Prescriptions Suspended Rapaflo 8 mg oral capsule: 8 mg, 1 cap, PO, Daily, 90 tab, 2 Refill(s) metoprolol 50 mg oral tablet, extended release: 50 mg, 1 tab, PO, Daily, 30 tab, 3 Refill(s) Documented Medications Suspended Claritin: 10 mg, 1 tab, PO, Daily, PRN: Itching / rash / allergy symptoms, 14 tab, 0 Refill(s) Lasix 40 mg oral tablet: 40 mg, 1 tab, PO, Daily, 0 Refill(s) aspirin 81 mg tablet, enteric coated: 81 mg, 1 tab, PO, Daily, 0 Refill(s) atorvastatin 40 mg oral tablet: 40 mg, 1 tab, PO, Bedtime, 0 Refill(s) clopidogrel 75 mg oral tablet: 75 mg, 1 tab, PO, Daily, 0 Refill(s) nitroglycerin 0.4 mg sublingual tablet: 0.4 mg, 1 tab, SL, Q5Min, PRN: Chest Pain, 0 Refill(s) Problem list: All Problems BPH (benign prostatic hyperplasia) / SNOMED CT 425925254 / Confirmed Renal cell carcinoma of left kidney / SNOMED CT 727259311 / Confirmed Multiple renal cysts / SNOMED CT 799730727 / Confirmed 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 Renal cell carcinoma (0895707414): Resolved. CAD (coronary atherosclerotic disease) ([id number]): Resolved. Carotid artery stenosis ([id number]): Resolved. Family History: Breast cancer Mother Heart disease Father Procedure history: Permanent cardiac pacemaker procedure ([id number]) on 03/16/2019 at 89 Years. TAVR - Transcatheter aortic valve replacement ([id number]) on 03/11/2019 at 89 Years. CEA - Carotid endarterectomy ([id number]). Comments: 07/04/2015 14:01 - Cristóbal Baker DO Left Placement of stent in anterior descending branch of left coronary artery ([id number]). Nephrectomy ([id number]). Social History Social & Psychosocial Habits Alcohol 03/05/2019 Use: Past Tobacco 07/04/2015 Use: Former smoker Exposure to Tobacco Smoke None Other Tobacco Frequency Smoked a few months at a time when he was younger. No current smoking Cigarette Smoking Last 365 Days No Reg Smoking Cessation Counseling Yes 03/05/2019 Use: Former smoker Exposure to Tobacco Smoke None Cigarette Smoking Last 365 Days No Reg Smoking Cessation Counseling No 03/16/2019 Use: Current every day smoke r Type: Chewing tobacco Stopped at age: 25 Years Previous treatment: None Concerns about tobacco use in household: No Exposure to Tobacco Smoke None Cigarette Smoking Last 365 Days No Reg Smoking Cessation Counseling No. Physical Examination VS/Measurements Measurements from flowsheet : Measurements 03/16/2019 15:12 Heparin Dosing Weight (kg) 84.16 03/16/2019 14:59 Height 177.8 cm Height Collection Method Stated Weight 100.909 kg Dosing Weight Difference Percent -3.604 % Dosing Weight Collection Method Estimated Body Surface Area 2.2324 m2 Body Mass Index 31.92 m2 , Vital Signs (last 24 hrs) Last Charted Temp Vcghsekc64.1 DegF (MAR 17 04:00) Heart Rate ApicalH 108bpm (MAR 17 08:) Resp Rate H 32BRMIN (MAR 17 08:) SBPH 170mmHg (MAR 17 08:) DBP79 mmHg (MAR 17 08:) Xymfuv409.90 kg (MAR 16:59) Cjwoyr054.8 cm (MAR 16:59) BMI31.92 (MAR 16:) PHYSICAL EXAM General Appearance: No acute distress Head: Normocephalic atraumatic Eyes:EOMI, PERRLA Neck: Supple, FROM Lungs: CTA bilaterally, no wheezes, rales, rhonchi Heart: Regular rate and regular rhythm, no murmur, rubs, gallops Abdomen: soft, non-tender, non-distended Musculoskeletal:Moves all 4 extremities, no LE edema Extremities: no pitting edema bilaterally. Neurologic: Alert/appropriate, no focal deficits Skin: Nolesions, no rash. Psych: Mood congruent affect, responds appropriately to questions. Review / Management Results review: Labs (Last four charted values) WBC 8.5(MAR 17)9.3(MAR 16) Hgb L 12.0(MAR 17)L 11.6(MAR 16) Hct L 35.4(MAR 17)L 35.4(MAR 16) Plt 146(MAR 17)153(MAR 16) Na 141(MAR 17)139(MAR 16) K 4.5(MAR 17)4.2(MAR 16) CO2 27(MAR 17)28(MAR 16) Cl 107(MAR 17)104(MAR 16) Cr 1.23(MAR 17)H 1.53(MAR 16) BUN H 34(MAR 17)H 45(MAR 16) Glucose Random H 164(MAR 17)H 133(MAR 16) Mg 2.4(MAR 17) Phos 2.7(MAR 17) Ca 8.7(MAR 17)9.4(MAR 16) PT 13.4(MAR 16) INR 1.04(MAR 16) PTT 24.6(MAR 16) Troponin 0.08(MAR 16). Impression and Plan 89 yo male with PMH significant for isch emic cardiomyopathy (LVEF improved on recent Echo 60%), CAD s/p PCI to LAD and s/p PCI to LCx at bifurcation to first OM with Impella assist (07/04/15), carotid artery stenosis s/p L CEA (10/2012), RCC s/p nephrectomy and HTN, severe s/p TAVR (29mm Levy S3 29 mm 03/11/19) presenting after an episode of dizziness with subsequent fall. Noncompressive right parafalcine subdural hematoma noted on CTH which was stable on repeat imaging. ECG consistent with high degree AV block. EP was consulted and patient was immediately taken to the director of labor relations for PPM. Patient is now s/p Dual Chamber PPM. Complete Heart Block in setting of recent TAVR -Symptomatic, presented with syncope and fall. - in setting of dizziness complicated by fall -s/p Dual Chamber Abbot PPM. -Interrogation showed normal PPM functio n. CXR showed appropriate location of the leads. -Will make some minor adjustments in PPM parameters. Thank you for the consult. Patient was discussed with Dr. Peerz Addendum Pt seen and examined emerge ntly on Mar 17 2019. S/p PPM placement and findings and plan by as per Dr. Jackson. Tyson Perez MD on 03/19/2019 17:58 Extracted from: Title: AHF H and P Author: Denia Beck Date : 03/16/19 Impression and Plan 89 yo male with PMH significant for isch emic cardiomyopathy (LVEF improved on recent Echo 60%), CAD s/p PCI to LAD and s/p PCI to LCx at bifurcation to first OM with Impella assist (07/04/15), carotid artery stenosis s/p L CEA (10/2012), RCC s/p nephrectomy and HTN, severe s/p TAVR (29mm Levy S3 29 mm 03/11/19) presenting after an episode of dizziness with subsequent fall. Noncompressive right parafalcine subdural hematoma noted on CTH which was stable on repeat imaging. ECG consistent with high degree AV block. EP consulted and patient taken to the director of labor relations for PPM. Of note, metoprolol recently increased as well. High degree AVB - in setting of dizziness complicated by fall - EP consulted, PPM today - will follow up EP procedure note SDH - Noncompressive right parafalcine subdu ral hematoma noted on CTH which was stable on repeat imaging. - neurosurgery consulted: patient at [facility], repeat CTH stable. Requires ICU admission for Q1 neurovascular checks. Keppra load 1000mg x1, then 500mg BID until 03/23/19 for seizure prophylaxis. Soft collar. BP systolic goal 100-150. - holding aspirin, plavix for now. Will discuss with NSG when OK to restart. Spinal fractures - CT spine 03/16 Triangular bony fragmen t at the anterior superior endplate of C6 vertebral body (series 7/image 30) may represent age-indeterminate fracture through an osteophyte. No definite associated prevertebral soft tissue prominence/hematoma. - CT chest 03/16 Transverse oblique nond isplaced T4 vertebral body fracture disrupting the anterior cortex, consistent with hyperextension fracture. - ortho consulted, pending recs Acute/chronic systolic heart failure 2/2 ischemic cardiomyopathy--EF improved 60% on recent TTE - RHC 03/07/19 mildly elevated filling p ressures. - unable to add ACEi/ARB/ARNI 2/2 renal function and solitary kidney. - holding metoprolol while pending PPM #CAD s/p PCI - PET scan notable with LCx stress-induc ed defect, as well as RCA territory compromise -known [employer] - C Saturday03/07/19 showed occlusion o f OM1 stent s/p PTCA, felt to be culprit vessel. RCA is occluded with ostial 80% stenosis and then proximal stenosis followed by occlusion, collaterals seen form distal LAD and septal branches to PDA. No further intervention as RCA with known [employer] - on ASA, plavix - restart in AM if OK w ith NSG team, continue statin #Hypertension - in setting of SDH, BP goal 100-150 syt solics per NSG - Will avoid nephrotoxic medications giv en solitary kidney #Paradoxical low flow low gradient severe Aortic stenosis--now s/p TAVR with 29mm Levy S3 03/11 -s/p TAVR with S3 29mm Melissa Levy bi oprosthesis - Echo post TAVR with well seated valve, no paravalvular leak Attestation I saw and examined the patient with Dr Felice Weinstein on 03/17/19 and agree with plan and assessment as above. I personally reviewed the labs, diagnostic imaging and documentation and discussed the plan of care with team and patient.
--- OUTSIDE RECORDS SUMMARY | 2019-09-28 21:32 | XMS REPORT | Summary of Care ---
Author Author [facility] Address Unknown Phone Unavailable Encounter SHAYY Zaldivar(OFELIA) [id number] Date(s): 03/05/19 - 03/14/19 [facility] [address] [employer] provided by [facility] [employer] [facility] [employer] [place] [address]- Encounter Diagnosis Heart failure, unspecified (Final) - Discharge Disposition: Home or Self Care Attending Physician: Tom Nova MD Admitting Physician: Tom Nova MD Vital Signs 1 2 3 Most recent to oldest [Reference Range]: 182.88 cm (03/14/19 6:03 AM) 182.88 cm (03/05/19 4:30 PM) Height 101.005 kg (03/14/19 6:03 AM) 97.009 kg (03/11/19 4:30 AM) 100.597 kg (03/08/19 3:07 AM) Current Weight 98.3 DegF (03/14/19 12:00 PM) 98.3 DegF (03/14/19 10:05 AM) 98.3 DegF (03/14/19 8:52 AM) Temperature Oral [96.4-99.1 DegF] 97/53 mmHg (03/14/19 2:00 PM) 109/57 mmHg (03/14/19 1:05 PM) 117/77 mmHg (03/14/19 12:00 PM) Blood Pressure [90-140/60-90 mmHg] 33 BRMIN *HI* (03/14/19 2:00 PM) 33 BRMIN *HI* (03/14/19 1:05 PM) 25 BRMIN *HI* (03/14/19 12:00 PM) Respiratory Rate [14-20 BRMIN] 104.682 kg (03/05/19 4:30 PM) Weight 31.3 m2 (03/05/19 4:30 PM) Body Mass Index Problem List Condition [...] Reactions, Alerts No Known Medication Allergies Medications amLODIPine 10 mg, 1 tab, Route: PO, Drug form: TAB, Daily, Dosing Weight 104.682, kg, Start date: 03/06/19 9:00:00 CDT, Duration: 30 day, Stop date: 04/04/19 9:00:00 [place], 0 Notes: (Same as: Norvasc) Start Date: 03/06/19 Stop Date: 03/09/19 Status: Discontinued ANES acetaminophen 650 mg, 2 tab, Route: PO, Drug form: TAB, ONCE, Dosing Weight 104.682, kg, PRN P ain Score 1-3, Start date: 03/11/19 9:30:00 CDT, 0 Notes: Do not exceed 4 gm/day. (Same as: Tylenol) Start Date: 03/11/19 Stop Date: 03/11/19 Status: Discontinued ANES fentaNYL 25 microgram, 0.5 mL, Route: IVP, Drug form: INJ, Q5Min, Dosing Weight 104.682, kg, PRN Pain Score 4-6, Priority: Routine, Start date: 03/11/19 10:15:00 CDT, Du ration: 4 doses or times, Stop date: Limited # of times, 0 Notes: (Same as: Sublimaze) Preservative free. Start Date: 03/11/19 Stop Date: 03/11/19 Status: Discontinued ANES flumazenil 0.2 mg, 2 mL, Route: IVP, Drug form: INJ, PRN, Dosing Weight 104.682, kg, PRN Be nzodiazepine Reversal, Initial dose, Start date: 03/11/19 9:30:00 CDT, Duration: 30 day, Stop date: 04/10/19 8:29:00 [place], 0 Notes: (Same as: Romazicon) Start Date: 03/11/19 Stop Date: 03/11/19 Status: Discontinued ANES hydrALAZINE 10 mg, 0.5 mL, Route: IVP, Drug form: INJ, Q20Min, Dosing Weight 104.682, kg, GA N Elevated BP, Start date: 03/11/19 9:30:00 CDT, Duration: 2 doses or times, Sto p date: Limited # of times, 0 Notes: (Same as: Apresoline)Push over 5 minutes Start Date: 03/11/19 Stop Date: 03/11/19 Status: Discontinued ANES labetalol 10 mg, 2 mL, Route: IVP, Drug form: INJ, Q5Min, Dosing Weight 104.682, kg, PRN E levated BP, Start date: 03/11/19 9:30:00 CDT, Duration: 5 doses or times, Stop d ate: Limited # of times, 0 Start Date: 03/11/19 Stop Date: 03/11/19 Status: Discontinued ANES naloxone 0.4 mg, 1 mL, Route: IVP, Drug form: INJ, Q2MIN, Dosing Weight 104.682, kg, PRN Narcotic Reversal, Start date: 03/11/19 9:30:00 CDT, Duration: 8 doses or times, Stop date: Limited # of times, 0 Notes: Same as Narcan Start Date: 03/11/19 Stop Date: 03/11/19 Status: Discontinued ANES ondansetron 4 mg, 2 mL, Route: IVP, Drug form: INJ, ONCE, Dosing Weight 104.682, kg, PRN Ethan sea & Vomiting, Start date: 03/11/19 9:30:00 CDT, 0 Notes: (Same as: Zodarlin) MEDICATION WASTE Product Size: 4 mgProduct Was steff: ___ mg Start Date: 03/11/19 Stop Date: 03/11/19 Status: Completed aspirin 81 mg tablet, enteric coated 81 mg = 1 tab, PO, Daily, 0 Refill(s) Start Date: 03/13/19 Status: Ordered Aspirin Enteric Coated 81 mg, 1 tab, Route: PO, Drug form: ECTAB, Daily, Dosing Weight 104.682, kg, Sta rt date: 03/06/19 9:00:00 CDT, Duration: 30 day, Stop date: 04/04/19 9:00:00 [place] , 0 Notes: Do not crush or chew.(Same As: Ecotrin) Start Date: 03/06/19 Stop Date: 03/14/19 Status: Discontinued atorvastatin 40 mg, 1 tab, Route: PO, Drug form: TAB, Bedtime, Dosing Weight 104.682, kg, Sta rt date: 03/05/19 21:00:00 CDT, Duration: 30 day, Stop date: 04/03/19 21:00:[address], 0 Notes: (Same as: Lipitor) Start Date: 03/05/19 Stop Date: 03/14/19 Status: Discontinued atorvastatin 40 mg oral tablet 40 mg = 1 tab, PO, Bedtime, 0 Refill(s) Start Date: 03/13/19 Status: Ordered calcium gluconate + Sodium Chloride 0.9% IV 100 mL 3 gm, 30 mL, Route: IVPB, PRN, Dosing Weight 104.682, kg, PRN Abnormal Lab Resul t, For NON-ICU Patients Only., Start date: 03/07/19 4:41:00 CDT, Duration: 30 da y, Stop date: 04/06/19 3:40:00 [place], 0 Notes: WASTE: F/P - Sink; E - Municipal Trash Bin Start Date: 03/07/19 Stop Date: 03/14/19 Status: Discontinued calcium gluconate + Sodium Chloride 0.9% IV 80 mL 2 gm, 20 mL, Route: IVPB, PRN, Dosing Weight 104.682, kg, PRN Abnormal Lab Resul t, For NON-ICU Patients Only., Start date: 03/07/19 4:41:00 CDT, Duration: 30 da y, Stop date: 04/06/19 3:40:00 [place], 0 Notes: WASTE: F/P - Sink; E - Municipal Trash Bin Start Date: 03/07/19 Stop Date: 03/14/19 Status: Discontinued ceFAZolin (ANES) Route: IV, Drug form: INJ, ONCE, Stop date: 03/11/19 8:46:00 CDT Start Date: 03/11/19 Stop Date: 03/11/19 Status: Completed cetirizine 10 mg, 1 tab, Route: PO, Drug form: TAB, Daily, PRN Itching, Start date: 9 19:29:00 CDT, Duration: 30 day, Stop date: 04/04/19 19:28:00 [place], 0 Notes: (Same As: Zyrtec) Start Date: 03/05/19 Stop Date: 03/14/19 Status: Discontinued Claritin 10 mg, 1 tab, Route: PO, Daily, Dosing Weight 104.682, kg, PRN Itching, Start da te: 03/05/19 19:16:00 CDT, Duration: 30 day, Stop date: 04/04/19 19:15:00 [place] Start Date: 03/05/19 Stop Date: 03/05/19 Status: Discontinued clopidogrel 75 mg oral tablet 75 mg = 1 tab, PO, Daily, 0 Refill(s) Start Date: 03/13/19 Status: Ordered docusate-senna 50 mg-8.6 mg oral tablet 1 tab, Route: PO, Drug Form: TAB, Dosing Weight 104.682, kg, BID, Start date: 20:40:00 CDT, Duration: 30 day, Stop date: 04/07/19 17:00:00 [place], 0 Notes: (Same as Cortez-Cullen) Equiv. to Alyce-Colace. Start Date: 03/08/19 Stop Date: 03/14/19 Status: Discontinued Dulcolax Laxative 10 mg, 1 supp, Route: GA, Drug form: SUPP, Daily, Dosing Weight 104.682, kg, PRN Constipation, Start date: 03/09/19 11:19:00 CDT, Duration: 30 day, Stop date: 06/08/18 11:18:00 [place], 0 Notes: (Same As: Dulcolax, Bisco-Lax) Start Date: 03/09/19 Stop Date: 03/14/19 Status: Discontinued EPINEPHrine-lidocaine 1:200,000-1% preservative-free injectable solution 10 mL, Route: INTRADERM, Dosing Weight 104.682, kg, ONCE, Start date: 03/07/19 6 :36:00 CDT, Stop date: 03/07/19 6:36:00 CDT Start Date: 03/07/19 Stop Date: 03/07/19 Status: Completed fentaNYL 50 microgram, 1 mL, Route: IV, Drug form: INJ, ONCE, Dosing Weight 104.682, kg, PRN Pain Score 7-10, Start date: 03/11/19 18:58:00 CDT, Pediatric Dosing; For pr ocedure; > 50 kg, 0 Notes: (Same as: Sublimaze) Preservative free. Start Date: 03/11/19 Stop Date: 03/11/19 Status: Completed fentaNYL (ANES) Route: IV, Drug form: INJ, ONCE, Stop date: 03/11/19 8:26:00 CDT Start Date: 03/11/19 Stop Date: 03/11/19 Status: Completed furosemide 20 mg, 2 mL, Route: IVP, Drug form: INJ, Q12H, Dosing Weight 104.682, kg, Start date: 03/11/19 21:00:00 CDT, Duration: 30 day, Stop date: 04/10/19 9:00:00 [place], 0 Notes: (Same as: Lasix) Start Date: 03/11/19 Stop Date: 03/13/19 Status: Discontinued furosemide 20 mg, 2 mL, Route: IVP, Drug form: INJ, Q8H, Dosing Weight 104.682, kg, Start d ate: 03/10/19 16:00:00 CDT, Duration: 30 day, Stop date: 04/09/19 8:00:00 [place], 0 Notes: (Same as: Lasix) Start Date: 03/10/19 Stop Date: 03/11/19 Status: Discontinued furosemide 20 mg, 2 mL, Route: IVP, Drug form: INJ, Q12H, Dosing Weight 104.682, kg, Start date: 03/09/19 9:12:00 CDT, Duration: 30 day, Stop date: 04/08/19 9:00:00 [place], 0 Notes: (Same as: Lasix) Start Date: 03/09/19 Stop Date: 03/10/19 Status: Discontinued heparin 5,000 unit, 1 mL, Route: SUB-Q, Drug form: INJ, BID, Dosing Weight 104.682, kg, Start date: 03/06/19 9:00:00 CDT, Duration: 30 day, Stop date: 04/04/19 17:00:00 [place], 0 Notes: porcine heparin Start Date: 03/06/19 Stop Date: 03/14/19 Status: Discontinued heparin (ANES) Route: IV, Drug form: INJ, ONCE, Stop date: 03/11/19 9:22:00 CDT Start Date: 03/11/19 Stop Date: 03/11/19 Status: Completed Lasix 20 mg, 1 tab, Route: PO, Drug form: TAB, BID, Dosing Weight 104.682, kg, Start d ate: 03/07/19 9:00:00 CDT, Duration: 30 day, Stop date: 04/05/19 17:00:00 [place], 0 Notes: (Same as: Lasix) May cause GI upset. Give with food or milk. Start Date: 03/07/19 Stop Date: 03/09/19 Status: Discontinued Lasix 40 mg oral tablet 40 mg, 1 tab, Route: PO, Drug form: TAB, Daily, Dosing Weight 104.682, kg, Start date: 03/14/19 9:00:00 CDT, Duration: 30 day, Stop date: 04/12/19 9:00:00 [place], 0 Notes: (Same as: Lasix) May cause GI upset. Give with food or milk. Start Date: 03/14/19 Stop Date: 03/14/19 Status: Discontinued Lasix 40 mg oral tablet 40 mg = 1 tab, PO, Daily, 0 Refill(s) Start Date: 03/13/19 Status: Ordered magnesium oxide 800 mg, 2 tab, Route: PO, Drug form: TAB, PRN, Dosing Weight 104.682, kg, PRN Ab normal Lab Result, For NON-ICU Patients Only., Start date: 03/07/19 4:41:00 CDT, Duration: 30 day, Stop date: 04/06/19 3:40:00 [place], 0 Notes: (Same as: Mag-Ox 400)Magnesium oxide 013ic=903am elemental magnesiumDose= ____mg magnesium oxide (___mg elemental magnesium) Start Date: 03/07/19 Stop Date: 03/14/19 Status: Discontinued magnesium sulfate 1 gm, 100 mL, Route: IVPB, Drug form: INJ, PRN, Dosing Weight 104.682, kg, PRN A bnormal Lab Result, For NON-ICU Patients Only., Start date: 03/07/19 4:41:00 CDT , Duration: 30 day, Stop date: 04/06/19 3:40:00 [place], 0 Notes: WASTE: F/P - Sink; E - Municipal Trash Bin Start Date: 03/07/19 Stop Date: 03/14/19 Status: Discontinued magnesium sulfate 2 gm, 50 mL, Route: IVPB, Drug form: INJ, PRN, Dosing Weight 104.682, kg, PRN Ab normal Lab Result, For NON-ICU Patients Only., Start date: 03/07/19 4:41:00 CDT, Duration: 30 day, Stop date: 04/06/19 3:40:00 [place], 0 Notes: WASTE: F/P - Sink; E - Municipal Trash Bin Start Date: 03/07/19 Stop Date: 03/14/19 Status: Discontinued metoprolol 50 mg oral tablet, extended release 50 mg = 1 tab, PO, Daily, # 30 tab, 3 Refill(s) Start Date: 03/13/19 Status: Ordered MiraLax 17 gm, 1 pkt, Route: PO, Drug form: PWDR, Daily, Dosing Weight 104.682, kg, Star t date: 03/09/19 11:19:00 CDT, Duration: 30 day, Stop date: 04/08/19 9:00:00 [place] , 0 Notes: Dissolve in 8 oz of water or juice.(Same as: Miralax) Start Date: 03/09/19 Stop Date: 03/14/19 Status: Discontinued morphine Sulfate 1 mg, 0.25 mL, Route: IVP, Drug form: SOLN, Q4H, Dosing Weight 104.682, kg, PRN Pain Score 7-10, Start date: 03/05/19 19:18:00 CDT, Duration: 30 day, Stop date: 04/04/19 19:17:00 [place], 0 Notes: (Same as:MORPhine Sulfate) Start Date: 03/05/19 Stop Date: 03/14/19 Status: Discontinued nitroglycerin 0.4 mg sublingual tablet 0.4 mg, 1 tab, Route: SL, Drug form: TAB, Q5Min, Dosing Weight 104.682, kg, PRN Chest Pain, Start date: 03/05/19 19:16:00 CDT, Duration: 30 day, Stop date: 03/20 11/05 18:15:00 [place], 0 Notes: (Same as:Nitroquick, Nitrostat)"Do Not Crush" Sublingual tablet Start Date: 03/05/19 Stop Date: 03/14/19 Status: Discontinued nitroglycerin 0.4 mg sublingual tablet 0.4 mg = 1 tab, SL, Q5Min, PRN Chest Pain, 0 Refill(s) Start Date: 03/13/19 Status: Ordered nitroglycerin SL Tab 0.4 mg, 1 tab, Route: SL, Drug form: TAB, Q5Min, Dosing Weight 104.682, kg, PRN Chest Pain, Start date: 03/11/19 9:59:00 CDT, Duration: 3 doses or times, Stop d ate: Limited # of times, 0 Notes: (Same as:Nitroquick, Nitrostat)"Do Not Crush" Sublingual tablet Start Date: 03/11/19 Stop Date: 03/14/19 Status: Discontinued Plavix 75 mg, 1 tab, Route: PO, Drug form: TAB, Daily, Dosing Weight 104.682, kg, Start date: 03/06/19 9:00:00 CDT, Duration: 30 day, Stop date: 04/04/19 9:00:00 [place], 0 Notes: (Same As: Plavix) Start Date: 03/06/19 Stop Date: 03/14/19 Status: Discontinued potassium chloride 20 mEq, 1 tab, Route: PO, Drug form: ERTAB, PRN, Dosing Weight 104.682, kg, PRN Abnormal Lab Result, For NON-ICU Patients Only, Start date: 03/07/19 4:41:00 CDT , Duration: 30 day, Stop date: 04/06/19 3:40:00 [place], 0 Notes: (Same as: K-Dur 20)"Do Not Crush" Give with food and full glass of water For patients unable to swallow tablet, dissolve in one half glass of water. Allo w about 2 minutes for the tablets to disintegrate. Stir before giving to prepare slurry and administer.Please exclude Patients with feeding tube less than 14 [place] (Dobhoff, J-tube etc) and pediatric and patients. Start Date: 03/07/19 Stop Date: 03/14/19 Status: Discontinued potassium chloride 20 mEq, 15 mL, Route: NJ, Drug form: LIQ, PRN, Dosing Weight 104.682, kg, PRN Ab normal Lab Result, For NON-ICU Patients Only, Start date: 03/07/19 4:41:00 CDT, Duration: 30 day, Stop date: 04/06/19 3:40:00 [place], 0 Notes: (Same as: Potassium Chloride) Start Date: 03/07/19 Stop Date: 03/14/19 Status: Discontinued potassium chloride 10 mEq, 50 mL, Route: IVPB, Drug form: INJ, PRN, Dosing Weight 104.682, kg, PRN Abnormal Lab Result, For NON-ICU Patients Only, Start date: 03/07/19 4:41:00 CDT , Duration: 30 day, Stop date: 04/06/19 3:40:00 [place], 0 Notes: (Same as: KCL) Infuse over 2 hours. Start Date: 03/07/19 Stop Date: 03/14/19 Status: Discontinued potassium phosphate + Sodium Chloride 0.9% IV 250 mL 15 mmol, 5 mL, Route: IVPB, PRN, Dosing Weight 104.682, kg, PRN Abnormal Lab Res ult, For NON-ICU Patients Only., Start date: 03/07/19 4:41:00 CDT, Duration: 30 day, Stop date: 04/06/19 3:40:00 [place], 0 Notes: (Same as: K Phosphate.)Do not infuse phosphorous concurrently in the same line as TPN or IVF that contains calcium. For double lumen central lines, phosp horous may be infused in a separate lumen from TPN. 1 mMol phoshate has 1.47 mE q potassium Infuse over 4 hours Start Date: 03/07/19 Stop Date: 03/14/19 Status: Discontinued potassium phosphate + Sodium Chloride 0.9% IV 250 mL 30 mmol, 10 mL, Route: IVPB, PRN, Dosing Weight 104.682, kg, PRN Abnormal Lab Re sult, For NON-ICU Patients Only., Start date: 03/07/19 4:41:00 CDT, Duration: 30 day, Stop date: 04/06/19 3:40:00 [place], 0 Notes: (Same as: K Phosphate.)Do not infuse phosphorous concurrently in the same line as TPN or IVF that contains calcium. For double lumen central lines, phosp horous may be infused in a separate lumen from TPN. 1 mMol phoshate has 1.47 mE q potassium Infuse over 4 hours Start Date: 03/07/19 Stop Date: 03/14/19 Status: Discontinued potassium phosphate-sodium phosphate 250 mg-280 mg-160 mg oral powder for recons titution 2 pkt, Route: PO, Drug Form: PDR/REC, Dosing Weight 104.682, kg, PRN, PRN Abnorm al Lab Result, For NON-ICU Patients Only, Start date: 03/07/19 4:41:00 CDT, Dura tion: 30 day, Stop date: 04/06/19 3:40:00 [place], 0 Notes: (Same as: Phos-NaK) Each 1.5 gm pkt has 250mg phosphorous. Mix w/2.5oz w ater and stir. Start Date: 03/07/19 Stop Date: 03/14/19 Status: Discontinued propofol (ANES) Route: IV, Drug form: INJ, ONCE, Stop date: 03/11/19 10:12:00 CDT Start Date: 03/11/19 Stop Date: 03/11/19 Status: Completed propofol (ANES) 10 mg Route: IV, Drug form: INJ, Start date: 03/11/19 7:47:00 CDT, Stop date: 03/11/19 8:47:00 CDT Start Date: 03/11/19 Stop Date: 03/11/19 Status: Completed Rapaflo 8 mg oral capsule Rapaflo 8 mg oral capsule, 8 mg, Drug form: CAP, Route: PO, Bedtime, 03/07/19 21 :00:00 CDT, Duration: 30 day, Stop date: 04/05/19 21:00:00 [place], 0 Start Date: 03/07/19 Stop Date: 03/14/19 Status: Discontinued Rapaflo 8 mg oral capsule Rapaflo 8 mg oral capsule, 8 mg, Drug form: CAP, Route: PO, Daily, 03/06/19 9:00 :00 CDT, Duration: 30 day, Stop date: 04/04/19 9:00:00 [place], 0 Start Date: 03/06/19 Stop Date: 03/07/19 Status: Discontinued Sodium Chloride 0.9% (Bolus) IV 250 mL, 250 ml/hr, Infuse Over: 1 hr, Route: IV, 250, Drug form: INJ, ONCE, Dosi ng Weight 104.682 kg, Start date: 03/11/19 9:59:00 CDT, Stop date: 03/11/19 9:59 :00 CDT, 0 Start Date: 03/11/19 Stop Date: 03/11/19 Status: Completed Sodium Chloride 0.9% (titrate) 250 mL 250 mL, Rate: To prime line and flush remaining blood products., Dosing Weight 1 04.682, kg, Route: IV, Total Volume: 250, Priority: Routine, Start Date: 14:40:00 CDT, Duration: 1 day, Stop date: 03/11/19 14:39:00 CDT, Replace Every : 24 hr, 0 Start Date: 03/10/19 Stop Date: 03/11/19 Status: Completed Sodium Chloride 0.9% IV (ANES) 500 mL Route: IV, Total Volume: 500, Start date: 03/11/19 7:37:00 CDT, Stop date: 03/11 8:37:00 CDT Start Date: 03/11/19 Stop Date: 03/11/19 Status: Completed sodium phosphate + Sodium Chloride 0.9% IV 250 mL 15 mmol, 5 mL, Route: IVPB, PRN, Dosing Weight 104.682, kg, PRN Abnormal Lab Res ult, For NON-ICU Patients Only., Start date: 03/07/19 4:41:00 CDT, Duration: 30 day, Stop date: 04/06/19 3:40:00 [place], 0 Notes: Infuse over 4 hour. Do not infuse phosphorous concurrently in the same li ne as TPN or IVF that contains calcium. For double lumen central lines, phosphor ous may be infused in a separate lumen from TPN. Start Date: 03/07/19 Stop Date: 03/14/19 Status: Discontinued sodium phosphate + Sodium Chloride 0.9% IV 250 mL 30 mmol, 10 mL, Route: IVPB, PRN, Dosing Weight 104.682, kg, PRN Abnormal Lab Re sult, For NON-ICU Patients Only., Start date: 03/07/19 4:41:00 CDT, Duration: 30 day, Stop date: 04/06/19 3:40:00 [place], 0 Notes: Infuse over 4 hour. Do not infuse phosphorous concurrently in the same li ne as TPN or IVF that contains calcium. For double lumen central lines, phosphor ous may be infused in a separate lumen from TPN. Start Date: 03/07/19 Stop Date: 03/14/19 Status: Discontinued Toprol-XL 25 mg oral tablet, extended release 50 mg, 2 tab, Route: PO, Drug form: ERTAB, Daily, Start date: 03/05/19 19:17:00 CDT, Duration: 30 day, Stop date: 04/04/19 9:00:00 [place], 0 Notes: (Same as: Toprol XL) Do Not Crush Start Date: 03/05/19 Stop Date: 03/14/19 Status: Discontinued tramadol 100 mg, 2 tab, Route: PO, Drug form: TAB, Q6H, Dosing Weight 104.682, kg, PRN Pa in Score 4-6, Start date: 03/05/19 19:18:00 CDT, Duration: 30 day, Stop date: 19:17:00 [place], 0 Notes: Not to exceed 400mg/day. (Same As: Ultram) Start Date: 03/05/19 Stop Date: 03/14/19 Status: Discontinued Tylenol 650 mg, 2 tab, Route: PO, Drug form: TAB, Q6H, Dosing Weight 104.682, kg, PRN Pa in 1-3/Temp > 100.4 F, Start date: 03/05/19 19:18:00 CDT, Duration: 30 day, Stop date: 04/04/19 19:17:00 [place], 0 Notes: Do not exceed 4 gm/day. (Same as: Tylenol) Start Date: 03/05/19 Stop Date: 03/14/19 Status: Discontinued Visipaque 320mg/ml 150 mL, Route: IVP, Drug Form: SOLN, Dosing Weight 104.682, kg, ONCALL, STAT, St art date: 03/09/19 14:34:00 CDT, Duration: 1 doses or times, Dose = 2.2ml/kg, M ax dose = 150ml -- "To be infused by Radiology Staff ONLY" Start Date: 03/09/19 Stop Date: 03/09/19 Status: Completed Zofran 4 mg, 2 mL, Route: IVP, Drug form: INJ, Q8H, Dosing Weight 104.682, kg, PRN Naus ea, Start date: 03/05/19 19:18:00 CDT, Duration: 30 day, Stop date: 04/04/19 19: 17:00 [place], 0 Notes: (Same as: Zofran) MEDICATION WASTE Product Size: 4 mgProduct Was steff: ___ mg Start Date: 03/05/19 Stop Date: 03/14/19 Status: Discontinued Results 1 2 3 Most recent to oldest [Reference Range]: 6.6 K/CMM (03/14/19 2:03 AM) 6.6 K/CMM (03/13/19 2:36 AM) 6.8 K/CMM (03/12/19 4:21 PM) Neutrophils # [1.5-8.1 K/CMM] 1.2 K/CMM (03/14/19 2:03 AM) 1.5 K/CMM (03/13/19 2:36 AM) 1.3 K/CMM (03/12/19 4:21 PM) Lymphocytes # [1.0-5.5 K/CMM] 1.0 K/CMM *HI* (03/14/19 2:03 AM) 1.0 K/CMM *HI* (03/13/19 2:36 AM) 1.2 K/CMM *HI* (03/12/19 4:21 PM) Monocytes # [0.0-0.8 K/CMM] 0.3 K/CMM (03/14/19 2:03 AM) 0.2 K/CMM (03/13/19 2:36 AM) 0.1 K/CMM (03/12/19 4:21 PM) Eosinophils # [0.0-0.5 K/CMM] 0.1 K/CMM (03/12/19 3:25 AM) Basophils # [0.0-0.2 K/CMM] 24 pg/mL (03/13/19 10:43 AM) 28 pg/mL (03/10/19 3:59 AM) 22 pg/mL (03/05/19 6:13 PM) BNP [<=100 pg/mL] Normal (03/11/19 12:41 PM) Plt Morph [Normal] 0.7 mg/dL (03/05/19 6:13 PM) Bili Indirect [0.0-1.0 mg/dL] 53 mL/min/1.73m2 1 *NA* (03/14/19 2:03 AM) 45 mL/min/1.73m2 2 *NA* (03/13/19 2:36 AM) 52 mL/min/1.73m2 3 *NA* (03/12/19 6:11 AM) eGFR Product available (03/11/19 5:00 AM) FFP product Product available (03/11/19 5:00 AM) RBC product O POS *Unknown* (03/09/19 4:41 AM) O POS *Unknown* (03/06/19 12:08 AM) ABO/Rh 27 % (03/13/19 10:43 AM) % [place] [12-57 %] 0.8 (03/05/19 6:13 PM) A/G Ratio [0.7-1.6] Negative (03/09/19 4:41 AM) Negative (03/06/19 12:08 AM) Antibody Scrn 3.1 g/dL *LOW* (03/05/19 6:13 PM) Albumin Lvl [3.5-5.0 g/dL] 103 unit/L (03/05/19 6:13 PM) Alk Phos [39-136 unit/L] 6 unit/L (03/05/19 6:13 PM) ALT [0-65 unit/L] 8.2 mEq/L *LOW* (03/14/19 2:03 AM) 9.2 mEq/L *LOW* (03/13/19 2:36 AM) 7.5 mEq/L *LOW* (03/12/19 6:11 AM) AGAP [10.0-20.0 mEq/L] 15 unit/L (03/05/19 6:13 PM) AST [0-37 unit/L] 0.4 % (03/14/19 2:03 AM) 0.4 % (03/13/19 2:36 AM) 0.3 % (03/12/19 4:21 PM) Basophils [0.0-1.0 %] 33 mg/dL *HI* (03/14/19 2:03 AM) 32 mg/dL *HI* (03/13/19 2:36 AM) 26 mg/dL *HI* (03/12/19 6:11 AM) BUN [7-22 mg/dL] 8.7 mg/dL (03/14/19 2:03 AM) 8.7 mg/dL (03/13/19:36 AM) 8.8 mg/dL (03/12/19 6:11 AM) Calcium Lvl [8.5-10.5 mg/dL] 102 mEq/L (03/14/19 2:03 AM) 104 mEq/L (03/13/19 2:36 AM) 108 mEq/L (03/12/19 6:11 AM) Chloride Lvl [95-109 mEq/L] 31 mEq/L (03/14/19 2:03 AM) 30 mEq/L (03/13/19 2:36 AM) 30 mEq/L (03/12/19 6:11 AM) CO2 [24-32 mEq/L] 1.21 mg/dL (03/14/19 2:03 AM) 1.37 mg/dL (03/13/19 2:36 AM) 1.23 mg/dL (03/12/19 6:11 AM) Creatinine Lvl [0.50-1.40 mg/dL] 0.1 mg/dL (03/05/19 6:13 PM) Bili Direct [0.0-0.3 mg/dL] 2.8 % (03/14/19 2:03 AM) 1.8 % (03/13/19 2:36 AM) 1.3 % (03/12/19 4:21 PM) Eosinophils [0.0-4.0 %] 240 ng/mL (03/13/19 10:43 AM) Ferritin Lvl [22-275 ng/mL] 5.1 ng/mL (03/13/19 10:43 AM) Folate Lvl [>=3.0 ng/mL] 3.7 g/dL (03/05/19 6:13 PM) Globulin [2.7-4.2 g/dL] 127 mg/dL *HI* (03/14/19 2:03 AM) 108 mg/dL *HI* (03/13/19 2:36 AM) 111 mg/dL *HI* (03/12/19 6:11 AM) Glucose Lvl [70-99 mg/dL] 34.4 % *LOW* (03/14/19 2:03 AM) 36.9 % *LOW* (03/13/19 2:36 AM) 36.4 % *LOW* (03/12/19 4:21 PM) Hct [42.0-54.0 %] 11.5 g/dL *LOW* (03/14/19 2:03 AM) 12.3 g/dL *LOW* (03/13/19 2:36 AM) 12.1 g/dL *LOW* (03/12/19 4:21 PM) Hgb [14.0-18.0 g/dL] 1.02 (03/05/19 6:13 PM) INR [0.85-1.17] 48 ug/dl (03/13/19 10:43 AM) Iron [45-160 ug/dl] 4.2 mEq/L (03/14/19 2:03 AM) 4.2 mEq/L (03/13/19 2:36 AM) 4.5 mEq/L (03/12/19 6:11 AM) Potassium Lvl [3.5-5.1 mEq/L] 13.3 % *LOW* (03/14/19 2:03 AM) 15.8 % *LOW* (03/13/19 2:36 AM) 13.3 % *LOW* (03/12/19 4:21 PM) Lymphocytes [20.0-40.0 %] 32.4 pg *HI* (03/14/19 2:03 AM) 32.2 pg *HI* (03/13/19 2:36 AM) 32.4 pg *HI* (03/12/19 4:21 PM) MCH [27.0-31.0 pg] 33.5 g/dL (03/14/19 2:03 AM) 33.2 g/dL (03/13/19 2:36 AM) 33.3 g/dL (03/12/19 4:21 PM) MCHC [32.0-36.0 g/dL] 96.7 fL *HI* (03/14/19 2:03 AM) 97.1 fL *HI* (03/13/19 2:36 AM) 97.4 fL *HI* (03/12/19 4:21 PM) MCV [80.0-94.0 fL] 2.3 mg/dL (03/14/19 2:03 AM) 2.3 mg/dL (03/13/19:36 AM) 2.2 mg/dL (03/12/19 6:11 AM) Magnesium Lvl [1.8-2.4 mg/dL] 10.9 % (03/14/19 2:03 AM) 10.6 % (03/13/19 2:36 AM) 12.6 % *HI* (03/12/19 4:21 PM) Monocytes [2.0-12.0 %] 7.5 fL (03/14/19 2:03 AM) 7.5 fL (03/13/19:36 AM) 7.5 fL (03/12/19 4:21 PM) MPV [7.4-10.4 fL] 137 mEq/L (03/14/19 2:03 AM) 139 mEq/L (03/13/19 2:36 AM) 141 mEq/L (03/12/19 6:11 AM) Sodium Lvl [135-145 mEq/L] 3.0 mg/dL (03/14/19 2:03 AM) 2.9 mg/dL (03/13/19 2:36 AM) 3.5 mg/dL (03/12/19 6:11 AM) Phosphorus [2.5-4.5 mg/dL] 127 K/CMM *LOW* (03/14/19 2:03 AM) 137 K/CMM (03/13/19 2:36 AM) 136 K/CMM (03/12/19 4:21 PM) Platelet [133-450 K/CMM] 72.6 % (03/14/19 2:03 AM) 71.4 % (03/13/19 2:36 AM) 72.5 % (03/12/19 4:21 PM) Segs [45.0-75.0 %] 6.8 g/dL (03/05/19 6:13 PM) Total Protein [6.4-8.4 g/dL] 13.2 seconds (03/05/19 6:13 PM) PT [12.0-14.7 seconds] 3.56 M/CMM *LOW* (03/14/19 2:03 AM) 3.80 M/CMM *LOW* (03/13/19 2:36 AM) 3.74 M/CMM *LOW* (03/12/19 4:21 PM) RBC [4.70-6.10 M/CMM] Normal (03/11/19 12:41 PM) RBC Morph [Normal] 14.4 % (03/14/19 2:03 AM) 14.7 % *HI* (03/13/19 2:36 AM) 14.5 % (03/12/19 4:21 PM) RDW [11.5-14.5 %] 1.3 % (03/13/19 10:43 AM) Retic Auto [0.5-1.5 %] 0.8 mg/dL (03/05/19 6:13 PM) Bili Total [0.2-1.3 mg/dL] 179 ug/dl *LOW* (03/13/19 10:43 AM) TIBC [228-428 ug/dl] <0.02 ng/mL (03/09/19 10:11 PM) <0.02 ng/mL (03/06/19 12:05 AM) <0.02 ng/mL (03/05/19 6:13 PM) Troponin-I [0.00-0.40 ng/mL] 131 ug/dl (03/13/19 10:43 AM) UIBC [110-370 ug/dl] 203 pg/mL *LOW* (03/13/19 10:43 AM) Vitamin B12 Lvl [254-1320 pg/mL] 9.1 K/CMM (03/14/19 2:03 AM) 9.2 K/CMM (03/13/19 2:36 AM) 9.4 K/CMM (03/12/19 4:21 PM) WBC [3.7-10.4 K/CMM] 1.18 mMol/L (03/14/19 2:03 AM) 1.18 mMol/L (03/13/19 2:36 AM) 1.17 mMol/L (03/12/19 6:11 AM) Ca Ion WB [1.05-1.25 mMol/L] 1.15 mMol/L (03/14/19 2:03 AM) 1.16 mMol/L (03/13/19 2:36 AM) 1.11 mMol/L (03/12/19 6:11 AM) Ca Norm WB [1.05-1.25 mMol/L] 212 seconds *NA* (03/06/19 6:14 PM) 293 seconds *NA* (03/06/19 4:12 PM) 380 seconds *NA* (03/06/19 3:18 PM) POC Activated Clotting Time 1Result Comment: The eGFR is calculated using [...] No; Stopped at age: 25; entered on: 03/05/19 Assessment and Plan Extracted from: Title: Consultation Author: Bk Beltre MD Date: 03/13/19 1.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 We reviewed the Ct scan extensively. We are noting the depth of the renal mass that is fairly deep into the sinus I described the anatomy of kidneys and surrounding organs We also reviewed the CT of chest At this time, I would recommend a MRI with his normal creatinine we can certainly to that outpatient basis. I will certainly follow the patient with you. INSTRUCTIONS/CODING DATA REVIEW on: _. Diet: Hydrate accordingly. Moderation with caffeine, alcohol, nicotine, and spicy foods. Data: I had an extensive counseling session with the patient concerning the diagnosis and treatment options. I had an extensive discussion with the patient's family concerning the diagnosis and treatment. I performed an extensive review and summary of the patient's medical records. Symptom Score Reviewed Urinalysis Review: I reviewed the Urinalysis data with patient, including diagnosis, prognosis, and treatment. X-ray Review: I reviewed the available images. My interpretation of the imaging studies were communicated to the patient, including diagnosis, prognosis, and treatment. Laboratory Values Review: I reviewed the available results. My interpretation of thelaboratory studies were communicated to the patient, including diagnosis, prognosis, and treatment. Diagnostic studies Review: I extensively reviewed and summarized all available diagnostic studies with the patient, including diagnosis, prognosis, and treatment. 110 minutes were spent face to face with this patient and/or family. I spent greater than 50% of that time providing counseling and/or coordination of care. Patient and I discussed the diagnosis. I counseled the patient concerning the diagnosis. I specifically discussed the options of treatment, the possible outcome, and the possible complications. Extracted from: Title: F Progress Note Author: Lillie Vidal te: 03/13/19 Impression and Plan The patient was seen and examined by me with the resident/MORTGAGE ORIGINATOR/PA and I agree with the History/Exam documented. 89 yo male with PMH significant for isch emic cardiomyopathy (LVEF improved on recent Echo 60%), CAD s/p PCI to LAD and s/p PCI to LCx at bifurcation to first OM with Impella assist (07/04/15), carotid artery stenosis s/p L CEA (10/2012), RCC s/p nephrectomy and HTN presenting for acute SOB after undergoing PET for concerns of worsening ischemic heart disease and severe aortic stenosis #Acute/chronic systolic heart failure 2/2 ischemic cardiomyopathy--EF improved 60% on recent TTE - Patient has been without diuretics for 2 days prior to admission. [facility] 03/07/19 mildly elevated filling pressures. Requiring supplemental O2, on 2L NC -change IVP lasix to Lasix PO 40mg daily -episodes of low O2 sat while sleeping a nd with activity--will arrange home health oxygen. Will have Pulmonary evaluate him and determine if he will require O2 at home - Continue Toprol to 50mg. Unable to add ACEi/ARB/ARNI 2/2 renal function and solitary kidney. - Strict I/O's, Sodium/ Fluid restrictio n 1L, Daily weights #CAD s/p PCI - PET scan notable with LCx stress-induc ed defect, as well as RCA territory compromise -known [place] [place] SLABS - [facility] Saturday03/07/19 showed occlusion o f OM1 stent s/p PTCA, felt to be culprit vessel. RCA is occluded with ostial 80% stenosis and then proximal stenosis followed by occlusion, collaterals seen form distal LAD and septal branches to PDA. No further intervention as RCA with known [place] SLABS - Continue ASA, plavix, BB, statin #Hypertension - Continue Toprol 50mg daily - Will avoid nephrotoxic medications giv en solitary kidney #Paradoxical low flow low gradient severe Aortic stenosis--NYHA class IV--now s/p TAVR with 29mm Levy S3 03/11 - TTE showed INOCENCIO (VTI) 0.62 cm2, stroke volume index 20.9 mL/beat/m2 which may represent normal flow low gradient severe . -HF surgery consulted, STS score 3.9% -s/p TAVR with S3 29mm Melissa Levy bi oprosthesis -Echo post TAVR with well seated valve, no paravalvular leak -Right groin hematoma improved after pr essure was held. Doppler of right groin negative. Hgb stable Hematoma, R wrist s/p TAVR -resolved. Right wrist doppler showed mi ld edema in anterior soft tissue, no significant hematoma. Pulses intact PT/OT: likely home with home health PT/OT and home oxygen ordered Code:Full Diet: Heart Healthy with 1L fluid restriction PPx: Heparin SubQ Dispo: IMU--Likely home tomorrow with home health PT/OT/Home oxygen/rolling walker Extracted from: Title: HF Surgery Author: Ramirez Valenzuela MD Date: 03/11/19 ADVANCED HEART FAILURE/CV SURGERY BRIEF OP NOTE Preop Diagnosis: Severe symptomatic , CAD with s/p PCI, ICMP, s/p nephrectomy, obese, HTN, hypoxia Postop Diagnosis: same Procedures: Trans-catheter Aortic Valve Replacement via right transfemoral access - 29mm Levy Pericardial Tissue Heart Valve Alterations Tailor: Tom Nova MD Surgeon: Alek Campuzano MD Surgical Fellow: Ramirez Valenzuela MD Anesthesiologist: Dr Lugo Anesthesia: MAC Antibiotics: Ancef 2gr@07:39 Case start time: 08:20 IVF: 1000 ml crystalloids EBL: <5 ml Transfusions: None Urine Output: N/A Complications: none Dictation #: [id number] Disposition: HVI ICU in stable condition Extracted from: Title: AHF History and Physical Author: Herbert Mcpherson Si, MD Date: 03/05/19 89 yo male with PMH significant for isch emic cardiomyopathy (LVEF 45-50%), CAD s/p PCI to LAD and s/p PCI to LCx at bifurcation to first OM with Impella assist (07/04/15), carotid artery stenosis s/p L CEA (10/2012), RCC s/p nephrectomy and HTN presenting for acute SOB after undergoing PET for concerns of worsening ischemic heart disease. 1.Acute exacerbation of CHF (congestiv e heart failure)(I50.9) 2.Shortness of breath(R06.02) 3.Hypoxia(R09.02) 4.CAD (coronary artery disease)(I25.10) 5.HTN (hypertension)(I10) 6.Aortic stenosis(I35.0) #Acute/chronic systolic heart failure 2/2 ischemic cardiomyopathy #Shortness of breath, resolved #Hypoxia, resolved - Decompensated on exam. NYHA II-III. - Patient has been without diuretics for 2 days prior to admission - Improved with IV diuretics - May repeat, pending labs - Repeat TTE with improvement of EF - Continue BB at current dose. Unable to add ACEi/ARB/ARNI 2/2 renal function and solitary kidney. - Continue Na and fluid restrictions. Mo nitor daily weights #CAD s/p PCI - Worsening edema, SOB/ALEX for last 6 mo nths - PET scan notable with LCx stress-induc ed defect, as well as RCA territory compromise - Continue ASA, plavix, BB, statin - No ACS protocol necessary at this time - Patient to undergo LHC 03/06/19; conse nt obtained #Hypertension - Continue current antihypertensive dorothy men. - PRN HTN medications as needed - will avoid nephrotoxic medications #Aortic stenosis - TTE showed INOCENCIO (VTI) 0.62 cm2, stroke volume index 20.9 mL/beat/m2 which may represent normal flow low gradient severe . To be discussed with valve coordinators. Thank you for allowing me to participate in this patient's care Please page with any further question or concerns. Additionally, can PerfectServe if necessary. Albert Correa MD Fellow, Department of Cardiovascular Disease [facility] [employer] Addendum by [place], Cardiology Attending Attest mary jane Godinez I have seen and examined th e patient with Dr. Buitrago 03/05/2019 Ham NAJERA I have reviewed all the cli nical information, lab investigations and imaging data. on I agree with the above exam ination findings, assessment, and plan. 03/07/2019 I was present and supervise matthew 06:27 CDLoyda
--- OUTSIDE RECORDS SUMMARY | 2019-09-28 21:32 | XMS REPORT | Summary of Care ---
Author Author [facility] Organization [facility] Address Unknown Phone Unavailable Encounter SHAYY Zaldivar(OFELIA) [id number] Date(s): 09/10/17 - 09/10/17 [facility] [address], [address] [place], [place] [address] Discharge Disposition: Home or Self Care Attending Physician: Tom Nova MD Referring Physician: Tom Nova MD Vital Signs Most recent to 1 oldest [Reference Range]: Height 174.24 cm (09/10/17 9:57 AM) Temperature Oral 98.1 DegF [96.4-99.1 DegF] (09/10/17 9:57 AM) Blood Pressure 135/75 mmHg [90-140/60-90 mmHg] (09/10/17 9:57 AM) Respiratory Rate 18 BRMIN [14-20 BRMIN] (09/10/17 9:57 AM) Peripheral Pulse 79 bpm Rate [60-100 bpm] (09/10/17 9:57 AM) Weight 104.29 kg (09/10/17 9:57 AM) Body Mass Index 34.35 m2 (09/10/17 9:57 AM) Problem List Condition Effective Dates Status Health Status Informan t 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) Allergies, Adverse Reactions, Alerts Substance Reaction Severity Status NKDA Active Medications Rapaflo 8 mg oral capsule 8 mg = 1 cap, PO, Daily, # 30 cap, 4 Refill(s), Pharmacy: [facility] [id number] Start Date: 09/11/17 Stop Date: 02/08/18 Status: Ordered Results No data available for [...]
--- OUTSIDE RECORDS SUMMARY | 2019-09-28 21:32 | XMS REPORT | Summary of Care ---
Author Author [facility] Organization [facility] Address Unknown Phone Unavailable Encounter SHAYY Zaldivar(FIN) [id number] Date(s): 04/13/19 - 04/13/19 [facility] [place] [id number], [address] [place], [place] [address] [phone] Discharge Disposition: Home or Self Care Attending Physician: Denia Beck MD Referring Physician: Denia Beck MD Vital Signs No data available for this [...]
--- OUTSIDE RECORDS SUMMARY | 2019-09-28 21:32 | XMS REPORT | Summary of Care ---
Author Author [facility] Organization [facility] Address Unknown Phone Unavailable Encounter SHAYY Zaldivar(OFELIA) [id number] Date(s): 01/07/18 - 01/07/18 [facility] [address], [address] [place] [address]- Encounter Diagnosis Essential (primary) hypertension (Final) - 01/14/18 Ischemic cardiomyopathy (Final) - Atherosclerotic heart disease of [place] coronary artery without angina pectoris (Final) - Hyperlipidemia, unspecified (Final) - Personal history of nicotine dependence (Final) - long term care administrator (current) use of anticoagulants (Final) - senior living (current) use of aspirin (Final) - Discharge Disposition: Home or Self Care Attending Physician: Tom Nova MD Referring Physician: Tom Nova MD Vital Signs Most recent to 1 oldest [Reference Range]: Height 171.45 cm (01/07/18 3:17 PM) Temperature Oral 97.3 DegF [96.4-99.1 DegF] (01/07/18 3:17 PM) Blood Pressure 133/84 mmHg [90-140/60-90 mmHg] (01/07/18 3:17 PM) Respiratory Rate 18 BRMIN [14-20 BRMIN] (01/07/18 3:17 PM) Peripheral Pulse 97 bpm Rate [60-100 bpm] (01/07/18 3:17 PM) Weight 103.807 kg (01/07/18 3:17 PM) Body Mass Index 35.31 m2 (01/07/18 3:17 PM) Problem List Condition Effective Dates Status Health Status Informan t 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) Allergies, Adverse Reactions, Alerts Substance Reaction Severity Status NKDA Active Medications atorvastatin 40 mg oral tablet 40 mg = 1 tab, PO, Bedtime, # 90 tab, 2 Refill(s), Pharmacy: [facility] Start Date: 03/27/18 Status: Ordered metoprolol 25 mg oral tablet, extended release 25 mg = 1 tab, PO, Daily, # 90 tab, 2 Refill(s), Pharmacy: [facility] Start Date: 03/27/18 Status: Ordered Plavix 75 mg oral tablet 75 mg = 1 tab, PO, Daily, # 90 tab, 2 Refill(s), Pharmacy: [facility] Start Date: 03/27/18 Status: Ordered Rapaflo 8 mg oral capsule 8 mg = 1 cap, PO, Daily, # 90 tab, 2 Refill(s), Pharmacy: [facility] [id number] Start Date: 03/12/18 Stop Date: 06/16/18 Status: Completed Results ELECTROLYTES Most recent to 1 oldest [Reference Range]: Sodium Lvl [135-145 140 mEq/L mEq/L] (01/07/18 5:23 PM) Potassium Lvl 4.1 mEq/L [3.5-5.1 mEq/L] (01/07/18 5:23 PM) Chloride Lvl [95-109 105 mEq/L mEq/L] (01/07/18 5:23 PM) CO2 [24-32 mEq/L] 29 mEq/L (01/07/18 5:23 PM) AGAP [10.0-20.0 10.1 mEq/L mEq/L] (01/07/18 5:23 PM) CHEM PANEL Most recent to 1 oldest [Reference Range]: Creatinine Lvl 1.08 mg/dL [0.50-1.40 mg/dL] (01/07/18 5:23 PM) eGFR 61 mL/min/1.73m2 1 *NA* (01/07/18 5:23 PM) BUN [7-22 mg/dL] 21 mg/dL (01/07/18 5:23 PM) Glucose Lvl [70-99 129 mg/dL mg/dL] *HI* (01/07/18 5:23 PM) Calcium Lvl 9.0 mg/dL [8.5-10.5 mg/dL] (01/07/18 5:23 PM) 1Result Comment: The eGFR is calculated using [...] be mul tiplied by the estimated BMI. CARDIAC ENZYMES Most recent to 1 oldest [Reference Range]: BNP [<=100 pg/mL] 22 pg/mL (01/07/18 5:23 PM) Immunizations No data available for this section [...]
--- OUTSIDE RECORDS SUMMARY | 2019-09-28 21:32 | XMS REPORT | Summary of Care ---
Author Author [facility] Organization [facility] Address Unknown Phone Unavailable Encounter SHAYY Zaldivar(OFELIA) [id number] Date(s): 06/22/19 - 06/22/19 [facility] [address], [address] [place], [place] [address] Discharge Disposition: Home or Self Care Attending Physician: Tom Nova MD Vital Signs Most recent to 1 oldest [Reference Range]: Height 178.31 cm (06/22/19 10:18 AM) Temperature Oral 98.6 DegF [96.4-99.1 DegF] (06/22/19 10:18 AM) Blood Pressure 124/63 mmHg [90-140/60-90 mmHg] (06/22/19 10:18 AM) Respiratory Rate 18 BRMIN [14-20 BRMIN] (06/22/19 10:18 AM) Peripheral Pulse 65 bpm Rate [60-100 bpm] (06/22/19 10:18 AM) Weight 97.983 kg (06/22/19 10:18 AM) Body Mass Index 30.82 m2 (06/22/19 10:18 AM) Problem List Condition Effective Dates Status [...] No; Stopped at age: 25; entered on: 06/22/19 Assessment and Plan No data available for this section
--- OUTSIDE RECORDS SUMMARY | 2019-09-28 21:32 | XMS REPORT | Summary of Care ---
Author Author [facility] Organization [facility] Address Unknown Phone Unavailable Encounter SHAYY Zaldivar(OFELIA) [id number] Date(s): 04/26/17 - 04/26/17 [facility] [address] [facility] [place] [address]- Discharge Disposition: Home or Self Care Attending Physician: Tom Nova MD Admitting Physician: Tom Nova MD Referring Physician: Tom Nova MD Vital Signs 1 2 3 Most recent to oldest [Reference Range]: 182.88 cm (04/26/17 11:16 AM) Height 98.0 DegF (04/26/17 11:30 AM) 98.1 DegF (04/26/17 11:00 AM) Temperature Oral [96.4-99.1 DegF] 165/81 mmHg *HI* (04/26/17 8:00 PM) 165/81 mmHg *HI* (04/26/17 7:45 PM) 176/81 mmHg *HI* (04/26/17 7:30 PM) Blood Pressure [90-140/60-90 mmHg] 104.545 kg (04/26/17 11:16 AM) Weight 31.26 m2 (04/26/17 11:16 AM) Body Mass Index Problem List Condition Effective Dates Status Health Status Informan t 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) Allergies, Adverse Reactions, Alerts Substance Reaction Severity Status NKDA Active Medications No Known Medications Results BLOOD BANK RESULTS Most recent to 1 oldest [Reference Range]: ABO/Rh O POS *Unknown* (04/26/17 11:30 AM) Antibody Scrn Negative (04/26/17 11:30 AM) ELECTROLYTES Most recent to 1 oldest [Reference Range]: Sodium Lvl [135-145 138 mEq/L mEq/L] (04/26/17 11:30 AM) Potassium Lvl 4.8 mEq/L [3.5-5.1 mEq/L] (04/26/17 11:30 AM) Chloride Lvl [95-109 105 mEq/L mEq/L] (04/26/17 11:30 AM) CO2 [24-32 mEq/L] 26 mEq/L (04/26/17 11:30 AM) AGAP [10.0-20.0 11.8 mEq/L mEq/L] (04/26/17 11:30 AM) CHEM PANEL Most recent to 1 oldest [Reference Range]: Creatinine Lvl 1.30 mg/dL [0.50-1.40 mg/dL] (04/26/17 11:30 AM) eGFR 49 mL/min/1.73m2 1 *NA* (04/26/17 11:30 AM) BUN [7-22 mg/dL] 29 mg/dL *HI* (04/26/17 11:30 AM) Glucose Lvl [70-99 107 mg/dL mg/dL] *HI* (04/26/17 11:30 AM) Calcium Lvl 9.5 mg/dL [8.5-10.5 mg/dL] (04/26/17 11:30 AM) Magnesium Lvl 2.2 mg/dL [1.8-2.4 mg/dL] (04/26/17 11:30 AM) 1Result Comment: The eGFR is calculated [...] 1 oldest [Reference Range]: WBC [3.7-10.4 K/CMM] 11.3 K/CMM *HI* (04/26/17 11:30 AM) RBC [4.70-6.10 5.08 M/CMM M/CMM] (04/26/17 11:30 AM) Hgb [14.0-18.0 g/dL] 15.7 g/dL (04/26/17 11:30 AM) Hct [42.0-54.0 %] 47.9 % (04/26/17 11:30 AM) MCV [80.0-94.0 fL] 94.4 fL *HI* (04/26/17 11:30 AM) MCH [27.0-31.0 pg] 30.9 pg (04/26/17 11:30 AM) MCHC [32.0-36.0 32.8 g/dL g/dL] (04/26/17 11:30 AM) RDW [11.5-14.5 %] 14.8 % *HI* (04/26/17 11:30 AM) Platelet [133-450 245 K/CMM K/CMM] (04/26/17 11:30 AM) MPV [7.4-10.4 fL] 8.3 fL (04/26/17 11:30 AM) Segs [45.0-75.0 %] 65.4 % (04/26/17 11:30 AM) Lymphocytes 23.7 % [20.0-40.0 %] (04/26/17 11:30 AM) Monocytes [2.0-12.0 7.8 % %] (04/26/17 11:30 AM) Eosinophils [0.0-4.0 2.4 % %] (04/26/17 11:30 AM) Basophils [0.0-1.0 0.7 % %] (04/26/17 11:30 AM) Segs-Bands # 7.4 K/CMM [1.5-8.1 K/CMM] (04/26/17 11:30 AM) Lymphocytes # 2.7 K/CMM [1.0-5.5 K/CMM] (04/26/17 11:30 AM) Monocytes # [0.0-0.8 0.9 K/CMM K/CMM] *HI* (04/26/17 11:30 AM) Eosinophils # 0.3 K/CMM [0.0-0.5 K/CMM] (04/26/17 11:30 AM) Basophils # [0.0-0.2 0.1 K/CMM K/CMM] (04/26/17 11:30 AM) PT [12.0-14.7 13.1 seconds seconds] (04/26/17 11:30 AM) INR [0.85-1.17] 0.99 (04/26/17 11:30 AM) PTT [22.9-35.8 29.7 seconds seconds] (04/26/17 11:30 AM) Immunizations No data available for this [...]
--- OUTSIDE RECORDS SUMMARY | 2019-09-28 21:32 | XMS REPORT | Summary of Care ---
Author Author [facility] Organization [facility] Address Unknown Phone Unavailable Encounter SHAYY Zaldivar(OFELIA) [id number] Date(s): 04/15/17 - 04/15/17 [facility] [address], [address] [place] [address]- Discharge Disposition: Home or Self Care Attending Physician: Tom Nova MD Referring Physician: Tom Nova MD Vital Signs Most recent to 1 oldest [Reference Range]: Height 172.72 cm (04/15/17 4:19 PM) Temperature Oral 97.8 DegF [96.4-99.1 DegF] (04/15/17 4:19 PM) Blood Pressure 151/103 mmHg [90-140/60-90 mmHg] *HI* (04/15/17 4:19 PM) Respiratory Rate 18 BRMIN [14-20 BRMIN] (04/15/17 4:19 PM) Peripheral Pulse 84 bpm Rate [60-100 bpm] (04/15/17 4:19 PM) Weight 105.966 kg (04/15/17 4:19 PM) Body Mass Index 35.52 m2 (04/15/17 4:19 PM) Problem List Condition Effective Dates Status Health Status Informan t 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) Allergies, Adverse Reactions, Alerts Substance Reaction Severity Status NKDA Active Medications furosemide 20 mg oral tablet See Instructions, Take 2 tabs PO qAM and 1 tab PO qPM, # 270 tab, 3 Refill(s), P harmacy: [facility] [id number] Start Date: 04/15/17 Status: Ordered Results No data available for [...]
--- OUTSIDE RECORDS SUMMARY | 2019-09-28 21:32 | XMS REPORT | Summary of Care ---
Author Author [facility] Organization [facility] Address Unknown Phone Unavailable Encounter HQ Kayley(OFELIA) [id number] Date(s): 04/22/17 - 04/23/17 [facility] [address], [address] [place], [place] [address] Vital Signs No data available for this [...]
--- OUTSIDE RECORDS SUMMARY | 2019-09-28 21:32 | XMS REPORT | Summary of Care ---
Author Author [facility] Organization [facility] Address Unknown Phone Unavailable Encounter SHAYY Zaldivar(OFELIA) [id number] Date(s): 04/20/19 - 04/20/19 [facility] [address], [address] Discharge Disposition: Home or Self Care Attending Physician: Julio Cesar Padilla MD Referring Physician: Julio Cesar Padilla MD Vital Signs Most recent to 1 oldest [Reference Range]: Height 178.05 cm (04/20/19 9:25 AM) Temperature Oral 98.3 DegF [96.4-99.1 DegF] (04/20/19 9:25 AM) Blood Pressure 111/55 mmHg [90-140/60-90 mmHg] (04/20/19 9:25 AM) Respiratory Rate 18 BRMIN [14-20 BRMIN] (04/20/19 9:25 AM) Peripheral Pulse 60 bpm Rate [60-100 bpm] (04/20/19 9:25 AM) Weight 95.085 kg (04/20/19 9:25 AM) Body Mass Index 29.99 m2 (04/20/19 9:25 AM) Problem List Condition Effective Dates Status [...]
--- OUTSIDE RECORDS SUMMARY | 2019-09-28 21:32 | XMS REPORT | Summary of Care ---
Author Author [facility] Organization [facility] Address Unknown Phone Unavailable Encounter SHAYY Zaldivar(OFELIA) [id number] Date(s): 05/24/17 - 05/24/17 [facility] [address] [employer] provided by [facility] [place] [address]- Discharge Disposition: Home or Self Care Attending Physician: Tom Nova MD Admitting Physician: Tom Nova MD Referring Physician: Tom Nova MD Vital Signs 1 2 3 Most recent to oldest [Reference Range]: 182.88 cm (05/24/17 8:01 AM) Height 134/68 mmHg (05/24/17 3:15 PM) 147/72 mmHg *HI* (05/24/17 3:00 PM) 151/73 mmHg *HI* (05/24/17 2:45 PM) Blood Pressure [90-140/60-90 mmHg] 20 BRMIN (05/24/17 3:15 PM) 19 BRMIN (05/24/17 3:00 PM) 20 BRMIN (05/24/17 2:45 PM) Respiratory Rate [14-20 BRMIN] 104.545 kg (05/24/17 8:01 AM) Weight 31.26 m2 (05/24/17 8:01 AM) Body Mass Index Problem List Condition Effective Dates Status Health Status Informan t 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) Allergies, Adverse Reactions, Alerts Substance Reaction Severity Status NKDA Active Medications Lasix 20 mg oral tablet 40 mg = 2 tab, PO, QAM, # 90 tab, 1 Refill(s), other Start Date: 05/24/17 Status: Ordered Lasix 20 mg oral tablet 20 mg = 1 tab, PO, QPM, # 90 tab, 0 Refill(s), other Start Date: 05/24/17 Status: Ordered Lasix 40 mg oral tablet 40 mg = 1 tab, PO, Daily, # 90 tab, 3 Refill(s) Start Date: 05/24/17 Stop Date: 05/24/17 Status: Discontinued nitroglycerin 0.4 mg sublingual tablet 0.4 mg = 1 tab, SL, Q5Min, PRN Chest Pain, 0 Refill(s) Start Date: 05/24/17 Status: Ordered nitroglycerin SL Tab 0.4 mg, 1 tab, Route: SL, Drug form: TAB, Q5Min, Dosing Weight 104.545, kg, PRN Chest Pain, Start date: 05/24/17 13:13:00 [employer], Duration: 3 doses or times, Stop date: Limited # of times Notes: (Same as:Nitroquick, Nitrostat)"Do Not Crush" Sublingual tablet Start Date: 05/24/17 Stop Date: 05/24/17 Status: Discontinued Results BLOOD BANK RESULTS Most recent to 1 oldest [Reference Range]: ABO/Rh O POS *Unknown* (05/24/17 8:03 AM) Antibody Scrn Negative (05/24/17 8:03 AM) ELECTROLYTES Most recent to 1 oldest [Reference Range]: Sodium Lvl [135-145 139 mEq/L mEq/L] (05/24/17 8:03 AM) Potassium Lvl 4.1 mEq/L [3.5-5.1 mEq/L] (05/24/17 8:03 AM) Chloride Lvl [95-109 103 mEq/L mEq/L] (05/24/17 8:03 AM) CO2 [24-32 mEq/L] 30 mEq/L (05/24/17 8:03 AM) AGAP [10.0-20.0 10.1 mEq/L mEq/L] (05/24/17 8:03 AM) CHEM PANEL Most recent to 1 oldest [Reference Range]: Creatinine Lvl 1.55 mg/dL [0.50-1.40 mg/dL] *HI* (05/24/17 8:03 AM) eGFR 40 mL/min/1.73m2 1 *NA* (05/24/17 8:03 AM) BUN [7-22 mg/dL] 24 mg/dL *HI* (05/24/17 8:03 AM) B/C Ratio [6-25] 15 (05/24/17 8:03 AM) Glucose Lvl [70-99 119 mg/dL mg/dL] *HI* (05/24/17 8:03 AM) Total Protein 7.4 g/dL [6.4-8.4 g/dL] (05/24/17 8:03 AM) Albumin Lvl [3.5-5.0 3.5 g/dL g/dL] (05/24/17 8:03 AM) Globulin [2.7-4.2 3.9 g/dL g/dL] (05/24/17 8:03 AM) A/G Ratio [0.7-1.6] 0.9 (05/24/17 8:03 AM) Calcium Lvl 9.2 mg/dL [8.5-10.5 mg/dL] (05/24/17 8:03 AM) Magnesium Lvl 2.0 mg/dL [1.8-2.4 mg/dL] (05/24/17 8:03 AM) ALT [0-65 unit/L] 17 unit/L (05/24/17 8:03 AM) AST [0-37 unit/L] 8 unit/L (05/24/17 8:03 AM) Alk Phos [39-136 117 unit/L unit/L] (05/24/17 8:03 AM) Bili Total [0.2-1.3 0.6 mg/dL mg/dL] (05/24/17 8:03 AM) 1Result Comment: The eGFR is calculated [...] 1 oldest [Reference Range]: WBC [3.7-10.4 K/CMM] 9.4 K/CMM (05/24/17 8:03 AM) RBC [4.70-6.10 4.81 M/CMM M/CMM] (05/24/17 8:03 AM) Hgb [14.0-18.0 g/dL] 15.0 g/dL (05/24/17 8:03 AM) Hct [42.0-54.0 %] 44.7 % (05/24/17 8:03 AM) MCV [80.0-94.0 fL] 92.8 fL (05/24/17 8:03 AM) MCH [27.0-31.0 pg] 31.1 pg *HI* (05/24/17 8:03 AM) MCHC [32.0-36.0 33.5 g/dL g/dL] (05/24/17 8:03 AM) RDW [11.5-14.5 %] 14.2 % (05/24/17 8:03 AM) Platelet [133-450 195 K/CMM K/CMM] (05/24/17 8:03 AM) MPV [7.4-10.4 fL] 7.2 fL *LOW* (05/24/17 8:03 AM) Segs [45.0-75.0 %] 59.4 % (05/24/17 8:03 AM) Lymphocytes 27.8 % [20.0-40.0 %] (05/24/17 8:03 AM) Monocytes [2.0-12.0 9.3 % %] (05/24/17 8:03 AM) Eosinophils [0.0-4.0 2.7 % %] (05/24/17 8:03 AM) Basophils [0.0-1.0 0.8 % %] (05/24/17 8:03 AM) Segs-Bands # 5.6 K/CMM [1.5-8.1 K/CMM] (05/24/17 8:03 AM) Lymphocytes # 2.6 K/CMM [1.0-5.5 K/CMM] (05/24/17 8:03 AM) Monocytes # [0.0-0.8 0.9 K/CMM K/CMM] *HI* (05/24/17 8:03 AM) Eosinophils # 0.3 K/CMM [0.0-0.5 K/CMM] (05/24/17 8:03 AM) Basophils # [0.0-0.2 0.1 K/CMM K/CMM] (05/24/17 8:03 AM) PT [12.0-14.7 13.7 seconds seconds] (05/24/17 8:03 AM) INR [0.85-1.17] 1.05 (05/24/17 8:03 AM) PTT [22.9-35.8 33.7 seconds seconds] (05/24/17 8:03 AM) Immunizations No data available for this [...]
--- OUTSIDE RECORDS SUMMARY | 2019-09-28 21:32 | XMS REPORT | Continuity of Care Document ---
Author Author Maria Del Rosario Lau [employer] PIYUSH Luu Organization [place] Address Unknown Phone Unavailable Care Team Providers Care Metal Turner Name Role Phone etaskr Information Exchange Unavailable Un available Problems Problem Status Onset Date Classification Date Reported Comments Source 5-7 WEEK F/U Active 05/29/2019 [facility] 30 DAY TAVR FOLLOW UP Active 04/15/2019 [facility] F/U Active 1 05/31/2018 [facility] SDH Active 1 [facility] COMPLETE HEART BLOCK Active 03/16/2019 [facility] CHF EXACERBATION Active 03/05/2019 [facility] Ischemic cardiomyopathy 06/26/2018 01/04/2019 [facility] FOLLOW UP Active 05/07/2018 [facility] R06.02 - SHORTNESS OF BREATH A ctive [facility] Active 05/28/2017 [facility] CAD Active 0 05/22/2017 [facility] CCL/LHC, SCA W/ FFR/IVUS OF LM Active 05/22/2017 [facility] CCL/LHC, SCA W/ POSS PCI/DX: CHEST PAIN, Active 04/25/2017 [facility] CHEST PAIN, CAD Active 04/25/2017 [facility] DX: CAD Active 04/16/2017 [facility] 4 MTH FOLLOW UP Active 04/15/2017 [facility] INTRACRANIAL CAROTID STENOSIS Active 10/18/2015 [facility] CAD, DISORDER OF ARTERIES AND ARTERIOLES Active 08/16/2015 [facility] HOSPITAL FOLLOW UP Active 08/11/2015 [facility] CCL/LHC, SCA/PCI TO LEFT CIRCUMFLEX/DX: Active 07/27/2015 [facility] MULTIVESSEL CAD, 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 Active 07/27/2015 [facility] CAD, SOB, HTN Active 07/05/2015 [facility] BLOCKAGE Active 07/04/2015 [facility] Benign essential hypertension (disorder) Resolved Problem 06/24/2019 [facility], DAVINA Lau, [facility] [place], [facility] [place] Atherosclerosis of coronary artery (disorder) Resolved Problem 06/24/2019 [facility], DAVINA Lau, [facility] [place], [facility], [facility] [place] Carotid artery stenosis (disorder) Resolved Problem 09/2019 [facility], O PID Sid, [facility] [place], [facility], [facility] [place] Renal cell carcinoma (disorder) Resolved Problem 09/2019 [facility], O PID Sid, [facility] [place], [facility], [facility] [place] Final: Essential (primary) hypertension 07/07/2015 [facility] Final: Shortness of breath 07/07/2015 [facility] Final: Atherosclerotic heart disease of [place] coronary artery without angina pectoris 07/07/2015 [facility] Benign prostatic hyperplasia (disorder) Active Problem 06/24/2019 [facility], SPENCERD Ángela, [facility], [facility] [place] 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 Problem 06/24/2019 [facility], SPENCERD [place], [facility], [facility] [place] Multiple renal cysts (disorder) Active Problem 09/2019 [facility], O PID [place], [facility], [facility] [place] 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 Problem 06/24/2019 [facility], DAVINA [place], [facility], [facility] [place] Atherosclerotic heart disease of [place] coronary artery without angina pectoris 01/04/2019 [facility] Coronary angioplasty status 01/04/2019 [facility] Essential (primary) hypertension 01/04/2019 [facility] Personal history of nicotine dependence 01/04/2019 [facility] FCI (current) use of anticoagulants 01/04/2019 [facility] Hyperlipidemia, unspecified 07/27/2018 [facility] FCI (current) use of aspirin 07/27/2018 [facility] Heart failure, unspecified 03/16/2019 [facility] MEDICAL SERVICES NOT AVAILABLE IN HOME Active [facility] ATHSCL HEART DISEASE OF [place] CORONARY Active [facility] OCCLUSION AND STENOSIS OF BILATERAL CR Active [facility] OCCLUSION AND STENOSIS OF UNSPECIFIED CA Active [facility] ENCNTR FOR GENERAL ADULT MEDICAL EXAM W/ Active [facility] HEART FAILURE, UNSPECIFIED Act fatou [facility] CHRONIC KIDNEY DISEASE, UNSPECIFIED Active [facility] ATRIOVENTRICULAR BLOCK, COMPLETE Active [facility] Medications Medication Details Route Status Patient Instructions Ordering Provider Order Date Source Nitroglycerin 0.4 MG Sublingual Tablet 0.4 mg = 1 tab, SL, Q5Min, PRN Chest Pain, # 30 tab, 0 Refill(s) Active 03/27/2019 [facility] nter QUEtiapine 25 mg oral tablet 3 7.5 mg = 1.5 tab, PO, Q24H, # 45 tab, 0 Refill(s) Active 03/27/2019 [facility]ter metoprolol tartrate 25 mg oral tablet 25 mg = 1 tab, PO, Q12H, # 60 tab, 0 Refill(s) Active 03/27/2019 [facility] tamsulosin 0.4 mg oral capsule 0.4 mg = 1 cap, PO, Daily, # 30 cap, 0 Refill(s), Pharmacy: [facility] #[id number] Active 03/27/2019 [facility] simethicone 80 mg oral tablet, chewable 80 mg = 1 tab, CHEW, Q6H, # 90 tab, 0 Refill(s), Pharmacy: [facility] #[id number] Active 03/27/2019 [facility] QUEtiapine 25 mg oral tablet 3 7.5 mg = 1.5 tab, PO, Q24H, # 45 tab, 0 Refill(s), Pharmacy: [facility] #[id number] Inactive 03/27/2019 [facility] metoprolol tartrate 25 mg oral tablet 25 mg = 1 tab, PO, Q12H, # 60 tab, 0 Refill(s), Pharmacy: [facility] #[id number] Inactive 03/27/2019 [facility] Zyprexa Notes: (Same As: ZyPRE XA IM). Reconstitute with 2.1 ml sterile water for injection; use within 1 hour after reconstitution. For IM use only; do not administer IV or SUB-Q. No Longer Active 03/26/2019 [facility] nter Haldol Notes: (Same as: Haldol) Inactive 03/26/2019 [facility] Haldol Notes: (Same as: Haldol) Inactive 03/25/2019 [facility] Seroquel Notes: (Same as: SERO quel) 12.5 mg = 1/2 x 25 mg tab No Longer Active 03/25/2019 [facility] Melatonin 3 MG Extended Release Tablet Notes: (Same as: Melatonin) No Longer Active 03/25/2019 [facility] Melatonin 3 MG Extended Release Tablet Notes: (Same as: Melatonin) No Longer Active 03/24/2019 [facility] metoprolol tartrate Notes: (Sa me as: Lopressor) No Longer Active 03/21/2019 [facility] Lactulose 667 MG/ML Oral Solution Notes: (Same as:Chronulac) Inactive 03/20/2019 [facility] Levetiracetam 500 MG Oral Tablet [Keppra] Notes: (Same as:Keppra) Inactive 03/20/2019 [facility] sennosides, ASSISTED 8.6 MG Oral Tablet Notes: (Same as: Senokot) No Longer Active 03/20/2019 [facility] Ipratropium Notes: SEE RT DOCU MENTATION (Same as:Atrovent) No Longer Active 03/20/2019 [facility] Docusate Sodium 100 MG Oral Capsule [Colace] 100 mg, 1 cap, Route: PO, BID, Dosing Weight 100.909, kg, Start date: 03/19/19 17:00:00 CDT, Duration: 30 day, Stop date: 04/18/19 9:00:00 GROUNDSKEEPER Inactive 03/19/2019 [facility] Budesonide 0.25 MG/ML Inhalant Solution [Pulmicort] Notes: (Same As: Pulmicort) No Longer Active 03/19/2019 [facility] magnesium citrate 58.2 MG/ML Oral Solution Notes: (Same as: Citrate of Magnesia) Concentration: 1.745 gm / 30 mL Inactive 03/19/2019 [facility] Reglan Notes: (Same as: Reglan) No Longer Active 03/19/2019 [facility] Simethicone Notes: (Same as: M ylicon) No Longer Active 03/19/2019 [facility] Budesonide 0.25 MG/ML Inhalant Solution [Pulmicort] Notes: (Same As: Pulmicort) Inactive 03/19/2019 [facility] Lasix 40 mg, Route: IVP, Drug form: INJ, Daily, Dosing Weight 100.909, kg, Start date: 03/19/19 9:00:00 CDT, Duration: 30 day, Stop date: 04/17/19 9:00:00 GROUNDSKEEPER, 0 No Longer Active 03/19/2019 [facility] Furosemide 40 MG Oral Tablet [Lasix] Notes: (Same as: Lasix) May cause GI upset. Give with food or milk. No Longer Active 03/19/2019 [facility] Ipratropium Carbon 0.2 MG/ML Inhalant Solution Notes: SEE RT DOCUMENTATION (Same as:Atrovent) No Longer Active 03/19/2019 [facility] Docusate Sodium 100 MG Oral Capsule Notes: (Same as: Colace) (Do Not Crush) No Longer Active 03/18/2019 [facility] Simethicone Notes: (Same as: Tone willis) No Longer Active 03/18/2019 [facility] Bisacodyl Notes: (Same As: Dul colax, Bisco-Lax) Inactive 03/18/2019 [facility] Seroquel Notes: (Same as: SERO quel) 12.5 mg = 1/2 x 25 mg tab No Longer Active 03/17/2019 [facility] Keppra Notes: Same as Keppra Mix with 100 mL NS, LR or D5W MEDICATION WASTE Product Size: 500 mg Product Wasted: ___ mg No Longer Active 03/17/2019 [facility] Aspirin 81 MG Enteric Coated Tablet Notes: Do not crush or chew. (Same As: Ecotrin) No Longer Active 03/17/2019 [facility] Furosemide 40 MG Oral Tablet [Lasix] Notes: (Same as: Lasix) May cause GI upset. Give with food or milk. Inactive 03/17/2019 [facility] 24 HR Metoprolol Tartrate 50 MG Extended Release Tablet [Toprol] 50 mg, 1 tab, Route: PO, Drug form: ERTA B, Daily, Start date: 03/17/19 9:00:00 CDT, Duration: 30 day, Stop date: 04/15/19 9:00:00 GROUNDSKEEPER No Longer Active 03/17/2019 [facility] Rapaflo 8 mg oral capsule Rapa min 8 mg oral capsule, 8 mg, Drug form: CAP, Route: PO, Daily, 03/17/19 9:00:00 CDT, Duration: 30 day, Stop date: 04/15/19 9:00:00 GROUNDSKEEPER No Longer Active 03/17/2019 [facility] nt clopidogrel 75 mg, Route: PO, Drug form: TAB, Daily, Dosing Weight 100.909, kg, Start date: 03/17/19 9:00:00 CDT, Duration: 30 day, Stop date: 04/15/19 9:00:00 GROUNDSKEEPER No Longer Active 03/17/2019 [facility] Flomax 0.4 mg, 1 cap, Route: P O, Drug form: CAP, Daily, Start date: 03/17/19 9:00:00 CDT, Duration: 30 day, Stop date: 04/15/19 9:00:00 GROUNDSKEEPER, 0 No Longer Active 03/17/2019 [facility] Acetaminophen 1,000 mg, Route: PO, ONCE, Dosing Weight 100.909, kg, Start date: 03/17/19 8:32:00 CDT, Stop date: 03/17/19 8:32:00 CDT Inactive 03/17/2019 [facility] Hydralazine Notes: (Same as: A presoline) Push over 5 minutes No Longer Active 03/17/2019 [facility] Lasix Notes: (Same as: Lasix) MEDICATION WASTE Product Size: 40 mg Product Wasted: ___ mg No Longer Active 03/17/2019 [facility] Ativan Notes: (Same as: Ativan) Inactive 03/17/2019 [facility] Ativan Notes: (Same as: Ativan) Inactive 03/17/2019 [facility] Versed Notes: (Same as: Versed ) MEDICATION WASTE Product Size: 2 mg Product Wasted: ___ mg Inactive 03/17/2019 [facility] Haldol Notes: (Same as: Haldol) Inactive 03/17/2019 [facility] atorvastatin Notes: (Same as: Lipitor) No Longer Active 03/17/2019 [facility] Keppra Notes: Same as Keppra Mix with 100 mL NS, LR or D5W MEDICATION WASTE Product Size: 500 mg Product Wasted: ___ mg Inactive 03/16/2019 [facility] Furosemide 40 MG Oral Tablet [Lasix] Notes: (Same as: Lasix) May cause GI upset. Give with food or milk. Inactive 03/14/2019 [facility] clopidogrel 75 mg oral tablet 75 mg = 1 tab, PO, Daily, 0 Refill(s) Active 03/13/2019 [facility] atorvastatin 40 mg oral tablet 40 mg = 1 tab, PO, Bedtime, 0 Refill(s) Active 03/13/2019 [facility] Aspirin 81 MG Enteric Coated Tablet 81 mg = 1 tab, PO, Daily, 0 Refill(s) Active 03/13/2019 [facility] Furosemide 40 MG Oral Tablet [Lasix] 40 mg = 1 tab, PO, Daily, 0 Refill(s) Active 03/13/2019 [facility] metoprolol 50 mg oral tablet, extended release 50 mg = 1 tab, PO, Daily, # 30 tab, 3 Refill(s) Active 03/13/2019 [facility] Nitroglycerin 0.4 MG Sublingual Tablet 0.4 mg = 1 tab, SL, Q5Min, PRN Chest Pain, 0 Refill(s) Active 03/13/2019 [facility] Furosemide Notes: (Same as: La six) No Longer Active 03/12/2019 [facility] Fentanyl Notes: (Same as: Subl imaze) Preservative free. Inactive 03/11/2019 [facility] Fentanyl Notes: (Same as: Subl imaze) Preservative free. Inactive 03/11/2019 [facility] propofol (ANES) Route: IV, [place] g form: INJ, ONCE, Stop date: 03/11/19 10:12:00 CDT Inactive 03/11/2019 [facility] Sodium Chloride 0.9% (Bolus) IV 250 mL, 250 ml/hr, Infuse Over: 1 hr, Route: IV, 250, Drug form: INJ, ONCE, Dosing Weight 104.682 kg, Start date: 03/11/19 9:59:00 CDT, Stop date: 03/11/19 9:59:00 CDT, 0 Inactive 03/11/2019 [facility] Nitroglycerin Notes: (Same as: Nitroquick, Nitrostat) "Do Not Crush" Sublingual tablet No Longer Active 03/11/2019 [facility] nt Hydralazine Notes: (Same as: A presoline) Push over 5 minutes Inactive 03/11/2019 [facility] Labetalol 10 mg, 2 mL, Route: IVP, Drug form: INJ, Q5Min, Dosing Weight 104.682, kg, PRN Elevated BP, Start date: 03/11/19 9:30:00 CDT, Duration: 5 doses or times, Stop date: Limited # of times, 0 Inactive 03/11/2019 [facility] Acetaminophen Notes: Do not ex ceed 4 gm/day. (Same as: Tylenol) Inactive 03/11/2019 [facility] Flumazenil Notes: (Same as: Ro mazicon) Inactive 03/11/2019 [facility] Naloxone Notes: Same as Narcan Inactive 03/11/2019 [facility] Ondansetron Notes: (Same as: Kita small) MEDICATION WASTE Product Size: 4 mg Product Wasted: ___ mg Inactive 03/11/2019 [facility] heparin (ANES) Route: IV, Drug form: INJ, ONCE, Stop date: 03/11/19 9:22:00 CDT Inactive 03/11/2019 [facility] ceFAZolin (ANES) Route: IV, Dr ug form: INJ, ONCE, Stop date: 03/11/19 8:46:00 CDT Inactive 03/11/2019 [facility] fentaNYL (ANES) Route: IV, [place] g form: INJ, ONCE, Stop date: 03/11/19 8:26:00 CDT Inactive 03/11/2019 [facility] propofol (ANES) 10 mg Route: I V, Drug form: INJ, Start date: 03/11/19 7:47:00 CDT, Stop date: 03/11/19 8:47:00 CDT Inactive 03/11/2019 [facility] Sodium Chloride 0.9% IV (ANES) 500 mL Route: IV, Total Volume: 500, Start date: 03/11/19 7:37:00 CDT, Stop date: 03/11/19 8:37:00 CDT Inactive 03/11/2019 [facility] Furosemide Notes: (Same as: Ashtyn [place]) No Longer Active 03/10/2019 [facility] Sodium Chloride 0.9% (titrate) 250 mL 250 mL, Rate: To prime line and flush remaining blood products., Dosing Weight 104.682, kg, Route: IV, Total Volume: 250, Priority: Routine, Start Date: 03/10/19 14:40:00 CDT, Duration: 1 day, Stop date: 03/11/19 14:39:00 CDT, Replace Every: 24 hr, 0 No Longer Active 03/10/2019 [facility] iodixanol 150 mL, Route: IVP, Drug Form: SOLN, Dosing Weight 104.682, kg, ONCALL, STAT, Start date: 03/09/19 14:34:00 CDT, Duration: 1 doses or times, Dose = 2.2ml/kg, Max dose = 150ml -- "To be infused by Ra diology Staff ONLY" Inactive 03/09/2019 [facility] Miralax Notes: Dissolve in 8 o z of water or juice. (Same as: Miralax) No Longer Active 03/09/2019 [facility] Dulcolax Laxative Notes: (Same As: Dulcolax, Bisco-Lax) No Longer Active 03/09/2019 [facility] Furosemide Notes: (Same as: Ashtyn [place]) No Longer Active 03/09/2019 [facility] Docusate Sodium 50 MG / sennosides, ASSISTED 8.6 MG Oral Tablet Notes: (Same as Cortez-S) Equiv. to Alyce-Colace. No Longer Active 03/09/2019 [facility] Rapaflo 8 mg oral capsule Rapa min 8 mg oral capsule, 8 mg, Drug form: CAP, Route: PO, Bedtime, 03/07/19 21:00:00 CDT, Duration: 30 day, Stop date: 04/05/19 21:00:00 GROUNDSKEEPER, 0 No Longer Active 03/08/2019 [facility] Lasix Notes: (Same as: Lasix) May cause GI upset. Give with food or milk. No Longer Active 03/07/2019 [facility] Epinephrine 0.005 MG/ML / Lidocaine Hydr ochloride 10 MG/ML Injection 10 mL, Route: INTRADERM, Dosing Weight 1 04.682, kg, ONCE, Start date: 03/07/19 6:36:00 CDT, Stop date: 03/07/19 6:36:00 CDT Inactive 03/07/2019 [facility] Potassium Chloride Notes: ([facility] as: K-Dur 20) "Do Not Crush" Give with food and full glass of water For patients unable to swallow tablet, dissolve in one half glass of water. Allow about 2 minutes for the tab lets to disintegrate. Stir before giving to prepare slurry and administer. Please exclude Patients with feeding tube less than 14 [place] ([place]ob[place], J-tube etc) and pediatric and patients. No Longer Active 03/07/2019 [facility] n[facility] potassium phosphate-sodium phosphate 250 mg-280 mg-160 mg oral powder for reconstitution Notes: (Same as: Phos-NaK) Each 1.5 gm pkt has 250mg phosphorous. Mix w/2.5oz water and stir. No Longer Active 03/07/2019 [facility] potassium phosphate Notes: ([facility] as: K Phosphate.) Do not infuse phosphorous concurrently in the same line as TPN or IVF that contains calcium. For double lumen central lines, phosphorous may be infused in a separate lumen from TPN. 1 mMol phoshate has 1.47 mEq potassium Infuse over 4 hours No Longer Active 03/07/2019 [facility] sodium phosphate Notes: Infuse over 4 hour. Do not infuse phosphorous concurrently in the same line as TPN or IVF that contains calcium. For double lumen central lines, phosphorous may be infused in a separate lumen from TPN. No Longer Active 03/07/2019 [facility] Magnesium Sulfate Notes: WASTE : F/P - Sink; E - Municipal Trash Bin No Longer Active 03/07/2019 [facility] Magnesium Oxide Notes: (Same a s: Mag-Ox 400) Magnesium oxide [id number] elemental magnesium Dose=____mg magnesium oxide (___mg elemental magnesium) No Longer Active 03/07/2019 [facility] Calcium Gluconate Notes: WASTE : F/P - Sink; E - Municipal Trash Bin No Longer Active 03/07/2019 [facility] Amlodipine Notes: (Same as: No rvasc) No Longer Active 03/06/2019 [facility] Aspirin Enteric Coated Notes: Do not crush or chew. (Same As: Ecotrin) No Longer Active 03/06/2019 [facility] Plavix Notes: (Same As: Plavix) No Longer Active 03/06/2019 [facility] Rapaflo 8 mg oral capsule Rapa min 8 mg oral capsule, 8 mg, Drug form: CAP, Route: PO, Daily, 03/06/19 9:00:00 CDT, Duration: 30 day, Stop date: 04/04/19 9:00:00 GROUNDSKEEPER, 0 No Longer Active 03/06/2019 [facility] heparin Notes: porcine heparin No Longer Active 03/06/2019 [facility] atorvastatin Notes: (Same as: Lipitor) No Longer Active 03/06/2019 [facility] cetirizine Notes: (Same As: Zy rtec) No Longer Active 03/06/2019 [facility] Morphine Notes: (Same as:MORPh ine Sulfate) No Longer Active 03/06/2019 [facility] Tramadol Notes: Not to exceed 400mg/day. (Same As: Ultram) No Longer Active 03/06/2019 [facility] Tylenol Notes: Do not exceed 4 gm/day. (Same as: Tylenol) No Longer Active 03/06/2019 [facility] Zofran Notes: (Same as: Zofran ) MEDICATION WASTE Product Size: 4 mg Product Wasted: ___ mg No Longer Active 03/06/2019 [facility] 24 HR Metoprolol Tartrate 25 MG Extended Release Tablet [Toprol] Notes: (Same as: Toprol XL) Do Not Crush No Longer Active 03/06/2019 [facility] Claritin 10 mg, 1 tab, Route: PO, Daily, Dosing Weight 104.682, kg, PRN Itching, Start date: 03/05/19 19:16:00 CDT, Duration: 30 day, Stop date: 04/04/19 19:15:00 GROUNDSKEEPER Inactive 03/06/2019 [facility] nt Nitroglycerin 0.4 MG Sublingual Tablet Notes: (Same as:Nitroquick, Nitrostat) "Do Not Crush" Sublingual tablet No Longer Active 03/06/2019 [facility] metoprolol 25 mg oral tablet, extended release 25 mg = 1 tab, PO, Daily, # 90 tab, 3 Refill(s), Pharmacy: [facility] Active 12/02/2018 [facility] clopidogrel 75 MG Oral Tablet [Plavix] 75 mg = 1 tab, PO, Daily, # 90 tab, 3 Refill(s), Pharmacy: [facility] Active 12/02/2018 [facility] atorvastatin 40 mg oral tablet 40 mg = 1 tab, PO, Bedtime, # 90 tab, 3 Refill(s), Pharmacy: [facility] Active 12/02/2018 [facility] silodosin 8 MG Oral Capsule [Rapaflo] 8 mg = 1 cap, PO, Daily, # 90 tab, 2 Refill(s), Pharmacy: [facility] Active 06/16/2018 [facility] Furosemide 20 MG Oral Tablet [Lasix] See Instructions, 2 tab PO QAM and 1 tab PO QPM, # 270 tab, 3 Refill(s), Pharmacy: [facility] Active 06/16/2018 [facility] atorvastatin 40 mg oral tablet 40 mg = 1 tab, PO, Bedtime, # 90 tab, 2 Refill(s), Pharmacy: [facility] Active 03/27/2018 [facility] metoprolol 25 mg oral tablet, extended release 25 mg = 1 tab, PO, Daily, # 90 tab, 2 Refill(s), Pharmacy: [facility] Active 03/27/2018 [facility] clopidogrel 75 MG Oral Tablet [Plavix] 75 mg = 1 tab, PO, Daily, # 90 tab, 2 Refill(s), Pharmacy: [facility] Active 03/27/2018 [facility] silodosin 8 MG Oral Capsule [Rapaflo] 8 mg = 1 cap, PO, Daily, # 90 tab, 2 Refill(s), Pharmacy: [facility] [id number] No Longer Active 03/12/2018 [facility] silodosin 8 MG Oral Capsule [Rapaflo] 8 mg = 1 cap, PO, Daily, # 30 cap, 4 Refill(s), Pharmacy: [facility] [id number] Active 09/11/2017 [facility] Furosemide 20 MG Oral Tablet [Lasix] 40 mg = 2 tab, PO, QAM, # 90 tab, 1 Refill(s), other Active 05/24/2017 [facility] nt Furosemide 40 MG Oral Tablet [Lasix] 40 mg = 1 tab, PO, Daily, # 90 tab, 3 Refill(s) Inactive 05/24/2017 [facility] nter Nitroglycerin 0.4 MG Sublingual Tablet 0.4 mg = 1 tab, SL, Q5Min, PRN Chest Pain, 0 Refill(s) Active 05/24/2017 [facility] nter Nitroglycerin Notes: (Same as: Nitroqucody, Nitrostat) "Do Not Crush" Sublingual tablet Inactive 05/24/2017 [facility] nter Furosemide 20 MG Oral Tablet S ee Instructions, Take 2 tabs PO qAM and 1 tab PO qPM, # 270 tab, 3 Refill(s), Pharmacy: [facility] [id number] Active 04/15/2017 [facility] amLODIPine 10 mg oral tablet 1 0 mg = 1 tab, PO, Daily, PT MUST SEE PRIMARY INSULATION CUTTER AND FORMER FOR FUTURE REFILLS, # 30 tab, 0 Refill(s), Pharmacy: [facility] [id number] Active 10/04/2016 [facility] Furosemide 40 MG Oral Tablet [Lasix] 40 mg = 1 tab, PO, Daily, # 90 tab, 3 Refill(s), [id number] Active 07/30/2016 [facility] Furosemide 40 MG Oral Tablet [Lasix] 40 mg = 1 tab, PO, Daily, # 90 tab, 0 Refill(s) Active 08/29/2015 [facility] nter 24 HR Metoprolol Tartrate 25 MG Extended Release Tablet [Toprol] Notes: (Same as: Toprol XL) Do Not Crush No Longer Active 08/11/2015 [facility] Plavix Notes: (Same As: Plavix) No Longer Active 08/11/2015 [facility] Amlodipine Notes: (Same as: No rvasc) No Longer Active 08/11/2015 [facility] Aspirin Enteric Coated Notes: Do not crush or chew. (Same As: Ecotrin) No Longer Active 08/11/2015 [facility] nter atorvastatin Notes: (Same as: Lipitor) No Longer Active 08/11/2015 [facility] Morphine Notes: (Same as:MORPh ine Sulfate) No Longer Active 08/11/2015 [facility] Nitroglycerin Notes: (Same as: Nitroquick, Nitrostat) "Do Not Crush" Sublingual tablet No Longer Active 08/10/2015 [facility] nter Sodium Chloride 0.154 MEQ/ML Injectable Solution 750 mL, Rate: 75 ml/hr, Infuse over: 10 hr, Route: IV, Dosing Weight 105 kg, Total Volume: 750, Start date: 08/10/15 18:45:00, Duration: 10 hr, Stop date: 08/11/15 4:44:00 No Longer Active 08/10/2015 [facility] atorvastatin 40 mg oral tablet 40 mg = 1 tab, PO, Bedtime, # 30 tab, 0 Refill(s) Active 07/04/2015 [facility] nter Claritin 10 mg = 1 tab, PO, Da tena, PRN Itching / rash / allergy symptoms, # 14 tab, 0 Refill(s) Active 07/04/2015 [facility] nter amLODIPine 10 mg oral tablet 1 0 mg = 1 tab, PO, Daily, # 30 tab, 0 Refill(s) Active 07/04/2015 [facility] Aspirin Enteric Coated 81 mg oral delaye d release tablet 81 mg = 1 tab, PO, Daily, 0 Refill(s) Active 07/04/2015 [facility] nter clopidogrel 75 MG Oral Tablet [Plavix] 75 mg = 1 tab, PO, Daily, # 30 tab, 0 Refill(s) Active 07/04/2015 [facility] nter metoprolol 25 mg oral tablet, extended release 25 mg = 1 tab, PO, Daily, # 30 tab, 0 Refill(s) Active 07/04/2015 [facility] nter silodosin 8 MG Oral Capsule [Rapaflo] 8 mg = 1 cap, PO, Daily, 0 Refill(s) Active 07/04/2015 [facility] Allergies, Adverse Reactions, Alerts Substance Category Reaction Severity Reaction type Status Date Reported Comments Source No Known Medication Allergies Assertion Drug aller gy [facility] Immunizations No Data Provided for This Section Results Order Name Results Value Reference Range Date Interpretation Comments Source CHEM PANEL Magnesium Lvl 2.4 1.8 - 2.4 03/27/2019 [facility] CHEM PANEL Phosphorus 3.8 2.5 - 4.5 03/27/2019 [facility] ELECTROLYTES AGAP 5.0 10.0 - 20.0 03/27/2019 [facility] ELECTROLYTES Glucose Lvl 117 70 - 99 03/27/2019 [facility] ELECTROLYTES BUN 23 7 - 22 03/27/2019 [facility] ELECTROLYTES Creatinine Lvl 1.1 2 0.50 - 1.40 03/27/2019 [facility] ELECTROLYTES Sodium Lvl 135 135 - 145 03/27/2019 [facility] ELECTROLYTES Potassium Lvl 5.0 3.5 - 5.1 03/27/2019 [facility] ELECTROLYTES Chloride Lvl 103 95 - 109 03/27/2019 [facility] ELECTROLYTES CO2 32 24 - 32 03/27/2019 [facility] ELECTROLYTES Calcium Lvl 9.0 8.5 - 10.5 03/27/2019 [facility] ELECTROLYTES eGFR 58 03/27/2019 Result Comment: The eGFR is calculated using the [...] from the National Kidney Disease Education Program (NKDEP) which additionally recommends that when the eGFR is used in patients with extremes of body mass index for purposes of drug dosing, the eGFR should be multiplied by the estimated BMI. [facility] HEMATOLOGY WBC 9.3 3.7 - 10.4 03/27/2019 [facility] HEMATOLOGY RBC 3.39 4.70 - 6.10 03/27/2019 [facility] HEMATOLOGY Hgb 10.8 14.0 - 18.0 03/27/2019 [facility] HEMATOLOGY Hct 32.9 42.0 - 54.0 03/27/2019 [facility] HEMATOLOGY MCV 97.1 80.0 - 94.0 03/27/2019 [facility] HEMATOLOGY MCH 32.0 27.0 - 31.0 03/27/2019 [facility] HEMATOLOGY MCHC 32.9 32.0 - 36.0 03/27/2019 [facility] HEMATOLOGY RDW 14.4 11.5 - 14.5 03/27/2019 [facility] HEMATOLOGY Platelet 239 133 - 450 03/27/2019 [facility] HEMATOLOGY MPV 7.0 7.4 - 10.4 03/27/2019 [facility] HEMATOLOGY Segs 71.5 45.0 - 75.0 03/27/2019 [facility] HEMATOLOGY Lymphocytes 15.3 20.0 - 40.0 03/27/2019 [facility] HEMATOLOGY Monocytes 9.1 2.0 - 12.0 03/27/2019 [facility] HEMATOLOGY Eosinophils 3.6 0.0 - 4.0 03/27/2019 [facility] HEMATOLOGY Basophils 0.5 0.0 - 1.0 03/27/2019 [facility] HEMATOLOGY Neutrophils # 6.7 1.5 - 8.1 03/27/2019 [facility] HEMATOLOGY Lymphocytes # 1.4 1.0 - 5.5 03/27/2019 [facility] HEMATOLOGY Monocytes # 0.8 0.0 - 0.8 03/27/2019 [facility] HEMATOLOGY Eosinophils # 0.3 0.0 - 0.5 03/27/2019 [facility] PARATHYROID PROFILE Ca Ion WB 1.19 1.05 - 1.25 03/27/2019 [facility] PARATHYROID PROFILE Ca Norm WB 1.19 1.05 - 1.25 03/27/2019 [facility] CHEM PANEL Glucose Lvl 118 70 - 99 03/26/2019 [facility] CHEM PANEL BUN 27 7 - 22 03/26/2019 [facility] CHEM PANEL Creatinine Lvl 1.08 0.50 - 1.40 03/26/2019 [facility] CHEM PANEL Sodium Lvl 139 135 - 145 03/26/2019 [facility] CHEM PANEL Potassium Lvl 4.8 3.5 - 5.1 03/26/2019 [facility] CHEM PANEL Chloride Lvl 104 95 - 109 03/26/2019 [facility] CHEM PANEL CO2 33 24 - 32 03/26/2019 [facility] CHEM PANEL Calcium Lvl 9.0 8.5 - 10.5 03/26/2019 [facility] CHEM PANEL Total Protein 5.9 6.4 - 8.4 03/26/2019 [facility] CHEM PANEL Albumin Lvl 2.1 3.5 - 5.0 03/26/2019 [facility] CHEM PANEL ALT 19 0 - 65 03/26/2019 [facility] CHEM PANEL AST 17 0 - 37 03/26/2019 [facility] CHEM PANEL Alk Phos 84 39 - 136 03/26/2019 [facility] CHEM PANEL Bili Total 0.7 0.2 - 1.3 03/26/2019 [facility] CHEM PANEL eGFR 61 03/26/2019 Result Comment: The eGFR is calculated using the [...] from the National Kidney Disease Education Program (NKDEP) which additionally recommends that when the eGFR is used in patients with extremes of body mass index for purposes of drug dosing, the eGFR should be multiplied by the estimated BMI. [facility] CHEM PANEL AGAP 6.8 10.0 - 20.0 03/26/2019 [facility] CHEM PANEL B/C Ratio 25 6 - 25 03/26/2019 [facility] CHEM PANEL Globulin 3.8 2.7 - 4.2 03/26/2019 [facility] CHEM PANEL A/G Ratio 0.6 0.7 - 1.6 03/26/2019 [facility] CHEM PANEL Magnesium Lvl 2.5 1.8 - 2.4 03/26/2019 [facility] CHEM PANEL Phosphorus 3.2 2.5 - 4.5 03/26/2019 [facility] HEMATOLOGY WBC 9.4 3.7 - 10.4 03/26/2019 [facility] HEMATOLOGY RBC 3.13 4.70 - 6.10 03/26/2019 [facility] HEMATOLOGY Hgb 10.5 14.0 - 18.0 03/26/2019 [facility] HEMATOLOGY Hct 30.4 42.0 - 54.0 03/26/2019 [facility] HEMATOLOGY MCV 97.2 80.0 - 94.0 03/26/2019 [facility] HEMATOLOGY MCH 33.5 27.0 - 31.0 03/26/2019 [facility] HEMATOLOGY MCHC 34.5 32.0 - 36.0 03/26/2019 [facility] HEMATOLOGY RDW 14.3 11.5 - 14.5 03/26/2019 [facility] HEMATOLOGY Platelet 256 133 - 450 03/26/2019 [facility] HEMATOLOGY MPV 7.2 7.4 - 10.4 03/26/2019 [facility] HEMATOLOGY Segs 70.3 45.0 - 75.0 03/26/2019 [facility] HEMATOLOGY Lymphocytes 15.9 20.0 - 40.0 03/26/2019 [facility] HEMATOLOGY Monocytes 10.0 2.0 - 12.0 03/26/2019 [facility] HEMATOLOGY Eosinophils 3.4 0.0 - 4.0 03/26/2019 [facility] HEMATOLOGY Basophils 0.4 0.0 - 1.0 03/26/2019 [facility] HEMATOLOGY Neutrophils # 6.6 1.5 - 8.1 03/26/2019 [facility] HEMATOLOGY Lymphocytes # 1.5 1.0 - 5.5 03/26/2019 [facility] HEMATOLOGY Monocytes # 0.9 0.0 - 0.8 03/26/2019 [facility] HEMATOLOGY Eosinophils # 0.3 0.0 - 0.5 03/26/2019 [facility] PARATHYROID PROFILE Ca Ion WB 1.15 1.05 - 1.25 03/26/2019 [facility] PARATHYROID PROFILE Ca Norm WB 1.17 1.05 - 1.25 03/26/2019 [facility] PARATHYROID PROFILE Ca Ion WB 0.95 1.05 - 1.25 03/25/2019 [facility] PARATHYROID PROFILE Ca Norm WB 1.02 1.05 - 1.25 03/25/2019 [facility] CHEM PANEL Phosphorus 3.1 2.5 - 4.5 03/25/2019 [facility] CHEM PANEL Magnesium Lvl 2.5 1.8 - 2.4 03/25/2019 [facility] ELECTROLYTES AGAP 8.7 10.0 - 20.0 03/25/2019 [facility] ELECTROLYTES Glucose Lvl 132 70 - 99 03/25/2019 [facility] ELECTROLYTES BUN 28 7 - 22 03/25/2019 [facility] ELECTROLYTES Creatinine Lvl 1.0 9 0.50 - 1.40 03/25/2019 [facility] ELECTROLYTES Sodium Lvl 140 135 - 145 03/25/2019 [facility] ELECTROLYTES Potassium Lvl 4.7 3.5 - 5.1 03/25/2019 [facility] ELECTROLYTES Chloride Lvl 104 95 - 109 03/25/2019 [facility] ELECTROLYTES CO2 32 24 - 32 03/25/2019 [facility] ELECTROLYTES Calcium Lvl 9.3 8.5 - 10.5 03/25/2019 [facility] ELECTROLYTES eGFR 60 03/25/2019 Result Comment: The eGFR is calculated using the [...] from the National Kidney Disease Education Program (NKDEP) which additionally recommends that when the eGFR is used in patients with extremes of body mass index for purposes of drug dosing, the eGFR should be multiplied by the estimated BMI. [facility] HEMATOLOGY WBC 9.0 3.7 - 10.4 03/25/2019 [facility] HEMATOLOGY RBC 3.52 4.70 - 6.10 03/25/2019 [facility] HEMATOLOGY Hgb 11.4 14.0 - 18.0 03/25/2019 [facility] HEMATOLOGY Hct 34.0 42.0 - 54.0 03/25/2019 [facility] HEMATOLOGY MCV 96.5 80.0 - 94.0 03/25/2019 [facility] HEMATOLOGY MCH 32.3 27.0 - 31.0 03/25/2019 [facility] HEMATOLOGY MCHC 33.5 32.0 - 36.0 03/25/2019 [facility] HEMATOLOGY RDW 14.3 11.5 - 14.5 03/25/2019 [facility] HEMATOLOGY Platelet 237 133 - 450 03/25/2019 [facility] HEMATOLOGY MPV 7.3 7.4 - 10.4 03/25/2019 [facility] HEMATOLOGY Segs 73.8 45.0 - 75.0 03/25/2019 [facility] HEMATOLOGY Lymphocytes 14.1 20.0 - 40.0 03/25/2019 [facility] HEMATOLOGY Monocytes 8.7 2.0 - 12.0 03/25/2019 [facility] HEMATOLOGY Eosinophils 2.8 0.0 - 4.0 03/25/2019 [facility] HEMATOLOGY Basophils 0.6 0.0 - 1.0 03/25/2019 [facility] HEMATOLOGY Neutrophils # 6.7 1.5 - 8.1 03/25/2019 [facility] HEMATOLOGY Lymphocytes # 1.3 1.0 - 5.5 03/25/2019 [facility] HEMATOLOGY Monocytes # 0.8 0.0 - 0.8 03/25/2019 [facility] HEMATOLOGY Eosinophils # 0.3 0.0 - 0.5 03/25/2019 [facility] HEMATOLOGY Basophils # 0.1 0.0 - 0.2 03/25/2019 [facility] HEMATOLOGY Basophils # 0.1 0.0 - 0.2 03/24/2019 [facility] HEMATOLOGY Basophils # 0.1 0.0 - 0.2 03/22/2019 [facility] CHEM PANEL ALT 10 0 - 65 03/17/2019 [facility] CHEM PANEL Albumin Lvl 2.6 3.5 - 5.0 03/17/2019 [facility] CHEM PANEL Alk Phos 78 39 - 136 03/17/2019 [facility] CHEM PANEL Bili Total 1.4 0.2 - 1.3 03/17/2019 [facility] CHEM PANEL Total Protein 6.5 6.4 - 8.4 03/17/2019 [facility] CHEM PANEL AST 19 0 - 37 03/17/2019 [facility] CHEM PANEL B/C Ratio 24 6 - 25 03/17/2019 [facility] CHEM PANEL Globulin 3.9 2.7 - 4.2 03/17/2019 [facility] CHEM PANEL A/G Ratio 0.7 0.7 - 1.6 03/17/2019 [facility] URINE AND STOOL UA Color Light Yellow *NA* (03/17/19 8:05 AM) Yellow 03/17/2019 [facility] URINE AND STOOL UA Turbidity Clear (03/17/19 8:05 AM) Clear 03/17/2019 [facility] URINE AND STOOL UA Spec Grav 1.014 <=1.030 03/17/2019 [facility] URINE AND STOOL UA pH 7.0 5.0 - 8.0 03/17/2019 [facility] URINE AND STOOL UA Protein 30 mg/dL Negative mg/dL 03/17/2019 [facility] URINE AND STOOL UA Glucose Negative mg/dL Negative mg/dL 03/17/2019 [facility] URINE AND STOOL UA Ketones Negative mg/dL Negative mg/dL 03/17/2019 [facility] URINE AND STOOL UA Bili Negative *NA* (03/17/19 8:05 AM) Negative 03/17/2019 [facility] URINE AND STOOL UA Blood Small *ABN* (03/17/19 8:05 AM) Negative 03/17/2019 [facility] URINE AND STOOL UA Urobilinogen <1.0 0.1 - 1.0 03/17/2019 [facility] URINE AND STOOL UA Nitrite Negative (03/17/19 8:05 AM) Negative 03/17/2019 [facility] URINE AND STOOL UA Leuk Est Negative (03/17/19 8:05 AM) Negative 03/17/2019 [facility] URINE AND STOOL UA Sq Epi Occasional /LPF Few /LPF 03/17/2019 [facility] URINE AND STOOL UA WBC <1 0 - 5 03/17/2019 [facility] URINE AND STOOL UA RBC <1 0 - 2 03/17/2019 [facility] URINE AND STOOL UA Bacteria Occasional /HPF None Seen /HPF 03/17/2019 [facility] URINE AND STOOL UA Renal Epi 8 <=0 /LPF 03/17/2019 [facility] URINE AND STOOL UA Amorph Sharifa Occasional /HPF None Seen /HPF 03/17/2019 [facility] BLOOD BANK RESULTS ABO/Rh O POS 03/16/2019 [facility] BLOOD BANK RESULTS Antibody Scrn Negative (03/16/19 4:38 PM) 03/16/2019 [facility] CARDIAC ENZYMES Troponin-I 0.08 0.00 - 0.40 03/16/2019 [facility] HEMATOLOGY INR 1.04 0.85 - 1.17 03/16/2019 [facility] HEMATOLOGY PT 13.4 12.0 - 14.7 03/16/2019 [facility] HEMATOLOGY PTT 24.6 22.9 - 35.8 03/16/2019 [facility] HEMATOLOGY ACT (TEG) Rapid 97 86 - 118 03/16/2019 [facility] HEMATOLOGY [place] Rapid 0.4 03/16/2019 [facility] HEMATOLOGY R-time Rapid 0.5 0.4 - 0.7 03/16/2019 [facility] HEMATOLOGY K-time Rapid 0.8 0.6 - 2.3 03/16/2019 [facility] HEMATOLOGY Angle Rapid 81 64 - 80 03/16/2019 [facility] HEMATOLOGY Max Amplitude Rapid 73 52 - 71 03/16/2019 [facility] HEMATOLOGY G-value Rapid 13.5 5.0 - 11.6 03/16/2019 [facility] HEMATOLOGY Estimated % Lysis Rapid 0 .0 0.0 - 7.5 03/16/2019 [facility] CHEM PANEL Phosphorus 3.0 2.5 - 4.5 03/14/2019 [facility] CHEM PANEL Magnesium Lvl 2.3 1.8 - 2.4 03/14/2019 [facility] CHEM PANEL Glucose Lvl 127 70 - 99 03/14/2019 [facility] CHEM PANEL BUN 33 7 - 22 03/14/2019 [facility] CHEM PANEL Creatinine Lvl 1.21 0.50 - 1.40 03/14/2019 [facility] CHEM PANEL Sodium Lvl 137 135 - 145 03/14/2019 [facility] CHEM PANEL Potassium Lvl 4.2 3.5 - 5.1 03/14/2019 [facility] CHEM PANEL Chloride Lvl 102 95 - 109 03/14/2019 [facility] CHEM PANEL CO2 31 24 - 32 03/14/2019 [facility] CHEM PANEL Calcium Lvl 8.7 8.5 - 10.5 03/14/2019 [facility] CHEM PANEL eGFR 53 03/14/2019 Result Comment: The eGFR is calculated using the [...] from the National Kidney Disease Education Program (NKDEP) which additionally recommends that when the eGFR is used in patients with extremes of body mass index for purposes of drug dosing, the eGFR should be multiplied by the estimated BMI. [facility] CHEM PANEL AGAP 8.2 10.0 - 20.0 03/14/2019 [facility] HEMATOLOGY WBC 9.1 3.7 - 10.4 03/14/2019 [facility] HEMATOLOGY RBC 3.56 4.70 - 6.10 03/14/2019 [facility] HEMATOLOGY Hgb 11.5 14.0 - 18.0 03/14/2019 [facility] HEMATOLOGY Hct 34.4 42.0 - 54.0 03/14/2019 [facility] HEMATOLOGY MCV 96.7 80.0 - 94.0 03/14/2019 [facility] HEMATOLOGY MCH 32.4 27.0 - 31.0 03/14/2019 [facility] HEMATOLOGY MCHC 33.5 32.0 - 36.0 03/14/2019 [facility] HEMATOLOGY RDW 14.4 11.5 - 14.5 03/14/2019 [facility] HEMATOLOGY Platelet 127 133 - 450 03/14/2019 [facility] HEMATOLOGY MPV 7.5 7.4 - 10.4 03/14/2019 [facility] HEMATOLOGY Segs 72.6 45.0 - 75.0 03/14/2019 [facility] HEMATOLOGY Lymphocytes 13.3 20.0 - 40.0 03/14/2019 [facility] HEMATOLOGY Monocytes 10.9 2.0 - 12.0 03/14/2019 [facility] HEMATOLOGY Eosinophils 2.8 0.0 - 4.0 03/14/2019 [facility] HEMATOLOGY Basophils 0.4 0.0 - 1.0 03/14/2019 [facility] HEMATOLOGY Neutrophils # 6.6 1.5 - 8.1 03/14/2019 [facility] HEMATOLOGY Lymphocytes # 1.2 1.0 - 5.5 03/14/2019 [facility] HEMATOLOGY Monocytes # 1.0 0.0 - 0.8 03/14/2019 [facility] HEMATOLOGY Eosinophils # 0.3 0.0 - 0.5 03/14/2019 [facility] PARATHYROID PROFILE Ca Ion WB 1.18 1.05 - 1.25 03/14/2019 [facility] PARATHYROID PROFILE Ca Norm WB 1.15 1.05 - 1.25 03/14/2019 [facility] ANEMIA STUDY Ferritin Lvl 240 22 - 275 03/13/2019 [facility] ANEMIA STUDY Iron 48 45 - 160 03/13/2019 [facility] ANEMIA STUDY TIBC 179 228 - 428 03/13/2019 [facility] ANEMIA STUDY UIBC 131 110 - 370 03/13/2019 [facility] ANEMIA STUDY % Satur Fe 27 12 - 57 03/13/2019 [facility] ANEMIA STUDY Folate Lvl 5.1 >=3.0 ng/mL 03/13/2019 [facility] ANEMIA STUDY Vitamin B12 Lvl 203 254 - 1320 03/13/2019 [facility] CARDIAC ENZYMES BNP 24 <=100 pg/mL 03/13/2019 [facility] HEMATOLOGY Retic Auto 1.3 0.5 - 1.5 03/13/2019 [facility] CHEM PANEL Phosphorus 2.9 2.5 - 4.5 03/13/2019 [facility] CHEM PANEL Magnesium Lvl 2.3 1.8 - 2.4 03/13/2019 [facility] ELECTROLYTES AGAP 9.2 10.0 - 20.0 03/13/2019 [facility] ELECTROLYTES Glucose Lvl 108 70 - 99 03/13/2019 [facility] ELECTROLYTES BUN 32 7 - 22 03/13/2019 [facility] ELECTROLYTES Creatinine Lvl 1.3 7 0.50 - 1.40 03/13/2019 [facility] ELECTROLYTES Sodium Lvl 139 135 - 145 03/13/2019 [facility] ELECTROLYTES Potassium Lvl 4.2 3.5 - 5.1 03/13/2019 [facility] ELECTROLYTES Chloride Lvl 104 95 - 109 03/13/2019 [facility] ELECTROLYTES CO2 30 24 - 32 03/13/2019 [facility] ELECTROLYTES Calcium Lvl 8.7 8.5 - 10.5 03/13/2019 [facility] ELECTROLYTES eGFR 45 03/13/2019 Result Comment: The eGFR is calculated using the [...] from the National Kidney Disease Education Program (NKDEP) which additionally recommends that when the eGFR is used in patients with extremes of body mass index for purposes of drug dosing, the eGFR should be multiplied by the estimated BMI. [facility] HEMATOLOGY Segs 71.4 45.0 - 75.0 03/13/2019 [facility] HEMATOLOGY Lymphocytes 15.8 20.0 - 40.0 03/13/2019 [facility] HEMATOLOGY Monocytes 10.6 2.0 - 12.0 03/13/2019 [facility] HEMATOLOGY Eosinophils 1.8 0.0 - 4.0 03/13/2019 [facility] HEMATOLOGY Basophils 0.4 0.0 - 1.0 03/13/2019 [facility] HEMATOLOGY Neutrophils # 6.6 1.5 - 8.1 03/13/2019 [facility] HEMATOLOGY Lymphocytes # 1.5 1.0 - 5.5 03/13/2019 [facility] HEMATOLOGY Monocytes # 1.0 0.0 - 0.8 03/13/2019 [facility] HEMATOLOGY Eosinophils # 0.2 0.0 - 0.5 03/13/2019 [facility] HEMATOLOGY WBC 9.2 3.7 - 10.4 03/13/2019 [facility] HEMATOLOGY RBC 3.80 4.70 - 6.10 03/13/2019 [facility] HEMATOLOGY Hgb 12.3 14.0 - 18.0 03/13/2019 [facility] HEMATOLOGY Hct 36.9 42.0 - 54.0 03/13/2019 [facility] HEMATOLOGY MCV 97.1 80.0 - 94.0 03/13/2019 [facility] HEMATOLOGY MCH 32.2 27.0 - 31.0 03/13/2019 [facility] HEMATOLOGY MCHC 33.2 32.0 - 36.0 03/13/2019 [facility] HEMATOLOGY RDW 14.7 11.5 - 14.5 03/13/2019 [facility] HEMATOLOGY Platelet 137 133 - 450 03/13/2019 [facility] HEMATOLOGY MPV 7.5 7.4 - 10.4 03/13/2019 [facility] PARATHYROID PROFILE Ca Ion WB 1.18 1.05 - 1.25 03/13/2019 [facility] PARATHYROID PROFILE Ca Norm WB 1.16 1.05 - 1.25 03/13/2019 [facility] HEMATOLOGY Segs 72.5 45.0 - 75.0 03/12/2019 [facility] HEMATOLOGY Lymphocytes 13.3 20.0 - 40.0 03/12/2019 [facility] HEMATOLOGY Monocytes 12.6 2.0 - 12.0 03/12/2019 [facility] HEMATOLOGY Eosinophils 1.3 0.0 - 4.0 03/12/2019 [facility] HEMATOLOGY Basophils 0.3 0.0 - 1.0 03/12/2019 [facility] HEMATOLOGY Neutrophils # 6.8 1.5 - 8.1 03/12/2019 [facility] HEMATOLOGY Lymphocytes # 1.3 1.0 - 5.5 03/12/2019 [facility] HEMATOLOGY Monocytes # 1.2 0.0 - 0.8 03/12/2019 [facility] HEMATOLOGY Eosinophils # 0.1 0.0 - 0.5 03/12/2019 [facility] HEMATOLOGY WBC 9.4 3.7 - 10.4 03/12/2019 [facility] HEMATOLOGY RBC 3.74 4.70 - 6.10 03/12/2019 [facility] HEMATOLOGY Hgb 12.1 14.0 - 18.0 03/12/2019 [facility] HEMATOLOGY Hct 36.4 42.0 - 54.0 03/12/2019 [facility] HEMATOLOGY MCV 97.4 80.0 - 94.0 03/12/2019 [facility] HEMATOLOGY MCH 32.4 27.0 - 31.0 03/12/2019 [facility] HEMATOLOGY MCHC 33.3 32.0 - 36.0 03/12/2019 [facility] HEMATOLOGY RDW 14.5 11.5 - 14.5 03/12/2019 [facility] HEMATOLOGY Platelet 136 133 - 450 03/12/2019 [facility] HEMATOLOGY MPV 7.5 7.4 - 10.4 03/12/2019 [facility] CHEM PANEL Magnesium Lvl 2.2 1.8 - 2.4 03/12/2019 [facility] CHEM PANEL Phosphorus 3.5 2.5 - 4.5 03/12/2019 [facility] ELECTROLYTES AGAP 7.5 10.0 - 20.0 03/12/2019 [facility] ELECTROLYTES Glucose Lvl 111 70 - 99 03/12/2019 [facility] ELECTROLYTES BUN 26 7 - 22 03/12/2019 [facility] ELECTROLYTES Creatinine Lvl 1.2 3 0.50 - 1.40 03/12/2019 [facility] ELECTROLYTES Sodium Lvl 141 135 - 145 03/12/2019 [facility] ELECTROLYTES Potassium Lvl 4.5 3.5 - 5.1 03/12/2019 [facility] ELECTROLYTES Chloride Lvl 108 95 - 109 03/12/2019 [facility] ELECTROLYTES CO2 30 24 - 32 03/12/2019 [facility] ELECTROLYTES Calcium Lvl 8.8 8.5 - 10.5 03/12/2019 [facility] ELECTROLYTES eGFR 52 03/12/2019 Result Comment: The eGFR is calculated using the [...] from the National Kidney Disease Education Program (NKDEP) which additionally recommends that when the eGFR is used in patients with extremes of body mass index for purposes of drug dosing, the eGFR should be multiplied by the estimated BMI. [facility] PARATHYROID PROFILE Ca Ion WB 1.17 1.05 - 1.25 03/12/2019 [facility] PARATHYROID PROFILE Ca Norm WB 1.11 1.05 - 1.25 03/12/2019 [facility] HEMATOLOGY Basophils # 0.1 0.0 - 0.2 03/12/2019 [facility] HEMATOLOGY RBC Morph Laurie l (03/11/19 12:41 PM) Normal 03/11/2019 [facility] HEMATOLOGY Plt Morph Laurie l (03/11/19 12:41 PM) Normal 03/11/2019 [facility] BLOOD BANK RESULTS RBC product Product available (03/11/19 5:00 AM) 03/11/2019 [facility] BLOOD BANK RESULTS FFP product Product available (03/11/19 5:00 AM) 03/11/2019 [facility] CARDIAC ENZYMES BNP 28 <=100 pg/mL 03/10/2019 [facility] CARDIAC ENZYMES Troponin-I <0.02 0.00 - 0.40 03/10/2019 [facility] BLOOD BANK RESULTS ABO/Rh O POS 03/09/2019 [facility] BLOOD BANK RESULTS Antibody Scrn Negative (03/09/19 4:41 AM) 03/09/2019 [facility] HEMATOLOGY POC Activated Clotting Ti me 212 03/06/2019 [facility] HEMATOLOGY POC Activated Clotting Ti me 293 03/06/2019 [facility] HEMATOLOGY POC Activated Clotting Ti me 380 03/06/2019 [facility] BLOOD BANK RESULTS ABO/Rh O POS 03/06/2019 [facility] BLOOD BANK RESULTS Antibody Scrn Negative (03/06/19 12:08 AM) 03/06/2019 [facility] CARDIAC ENZYMES Troponin-I <0.02 0.00 - 0.40 03/06/2019 [facility] CARDIAC ENZYMES BNP 22 <=100 pg/mL 03/05/2019 [facility] CARDIAC ENZYMES Troponin-I <0.02 0.00 - 0.40 03/05/2019 [facility] CHEM PANEL ALT 6 0 - 65 03/05/2019 [facility] CHEM PANEL Albumin Lvl 3.1 3.5 - 5.0 03/05/2019 [facility] CHEM PANEL Alk Phos 103 39 - 136 03/05/2019 [facility] CHEM PANEL Bili Direct 0.1 0.0 - 0.3 03/05/2019 [facility] CHEM PANEL Bili Total 0.8 0.2 - 1.3 03/05/2019 [facility] CHEM PANEL Bili Indirect 0.7 0.0 - 1.0 03/05/2019 [facility] CHEM PANEL Total Protein 6.8 6.4 - 8.4 03/05/2019 [facility] CHEM PANEL Globulin 3.7 2.7 - 4.2 03/05/2019 [facility] CHEM PANEL A/G Ratio 0.8 0.7 - 1.6 03/05/2019 [facility] CHEM PANEL AST 15 0 - 37 03/05/2019 [facility] HEMATOLOGY PT 13.2 12.0 - 14.7 03/05/2019 [facility] HEMATOLOGY INR 1.02 0.85 - 1.17 03/05/2019 [facility] CARDIAC ENZYMES BNP 22 <=100 pg/mL 01/07/2018 [facility] CHEM PANEL eGFR 61 01/07/2018 Result Comment: The eGFR is calculated using the [...] from the National Kidney Disease Education Program (NKDEP) which additionally recommends that when the eGFR is used in patients with extremes of body mass index for purposes of drug dosing, the eGFR should be multiplied by the estimated BMI. [facility] CHEM PANEL Potassium Lvl 4.1 3.5 - 5.1 01/07/2018 [facility] CHEM PANEL Chloride Lvl 105 95 - 109 01/07/2018 [facility] CHEM PANEL CO2 29 24 - 32 01/07/2018 [facility] CHEM PANEL Calcium Lvl 9.0 8.5 - 10.5 01/07/2018 [facility] CHEM PANEL Creatinine Lvl 1.08 0.50 - 1.40 01/07/2018 [facility] CHEM PANEL Glucose Lvl 129 70 - 99 01/07/2018 [facility] CHEM PANEL BUN 21 7 - 22 01/07/2018 [facility] CHEM PANEL Sodium Lvl 140 135 - 145 01/07/2018 [facility] CHEM PANEL AGAP 10.1 10.0 - 20.0 01/07/2018 [facility] BLOOD BANK RESULTS ABO/Rh O POS 05/24/2017 [facility] BLOOD BANK RESULTS Antibody Scrn Negative (05/24/17 8:03 AM) 05/24/2017 [facility] CHEM PANEL Total Protein 7.4 6.4 - 8.4 05/24/2017 [facility] CHEM PANEL Bili Total 0.6 0.2 - 1.3 05/24/2017 [facility] CHEM PANEL Alk Phos 117 39 - 136 05/24/2017 [facility] CHEM PANEL AST 8 0 - 37 05/24/2017 [facility] CHEM PANEL ALT 17 0 - 65 05/24/2017 [facility] CHEM PANEL Albumin Lvl 3.5 3.5 - 5.0 05/24/2017 [facility] CHEM PANEL eGFR 40 05/24/2017 Result Comment: The eGFR is calculated using the [...] from the National Kidney Disease Education Program (NKDEP) which additionally recommends that when the eGFR is used in patients with extremes of body mass index for purposes of drug dosing, the eGFR should be multiplied by the estimated BMI. [facility] CHEM PANEL BUN 24 7 - 22 05/24/2017 [facility] CHEM PANEL Sodium Lvl 139 135 - 145 05/24/2017 [facility] CHEM PANEL Creatinine Lvl 1.55 0.50 - 1.40 05/24/2017 [facility] CHEM PANEL Potassium Lvl 4.1 3.5 - 5.1 05/24/2017 [facility] CHEM PANEL Chloride Lvl 103 95 - 109 05/24/2017 [facility] CHEM PANEL CO2 30 24 - 32 05/24/2017 [facility] CHEM PANEL Calcium Lvl 9.2 8.5 - 10.5 05/24/2017 [facility] CHEM PANEL Glucose Lvl 119 70 - 99 05/24/2017 [facility] CHEM PANEL A/G Ratio 0.9 0.7 - 1.6 05/24/2017 [facility] CHEM PANEL Globulin 3.9 2.7 - 4.2 05/24/2017 [facility] CHEM PANEL AGAP 10.1 10.0 - 20.0 05/24/2017 [facility] CHEM PANEL B/C Ratio 15 6 - 25 05/24/2017 [facility] CHEM PANEL Magnesium Lvl 2.0 1.8 - 2.4 05/24/2017 [facility] HEMATOLOGY Basophils # 0.1 0.0 - 0.2 05/24/2017 [facility] HEMATOLOGY Eosinophils 2.7 0.0 - 4.0 05/24/2017 [facility] HEMATOLOGY Basophils 0.8 0.0 - 1.0 05/24/2017 [facility] HEMATOLOGY Lymphocytes # 2.6 1.0 - 5.5 05/24/2017 [facility] HEMATOLOGY Lymphocytes 27.8 20.0 - 40.0 05/24/2017 [facility] HEMATOLOGY Monocytes 9.3 2.0 - 12.0 05/24/2017 [facility] HEMATOLOGY Segs-Bands # 5.6 1.5 - 8.1 05/24/2017 [facility] HEMATOLOGY Segs 59.4 45.0 - 75.0 05/24/2017 [facility] HEMATOLOGY Eosinophils # 0.3 0.0 - 0.5 05/24/2017 [facility] HEMATOLOGY Monocytes # 0.9 0.0 - 0.8 05/24/2017 [facility] HEMATOLOGY PT 13.7 12.0 - 14.7 05/24/2017 [facility] HEMATOLOGY PTT 33.7 22.9 - 35.8 05/24/2017 [facility] HEMATOLOGY INR 1.05 0.85 - 1.17 05/24/2017 [facility] HEMATOLOGY Hct 44.7 42.0 - 54.0 05/24/2017 [facility] HEMATOLOGY RBC 4.81 4.70 - 6.10 05/24/2017 [facility] HEMATOLOGY Hgb 15.0 14.0 - 18.0 05/24/2017 [facility] HEMATOLOGY MCV 92.8 80.0 - 94.0 05/24/2017 [facility] HEMATOLOGY WBC 9.4 3.7 - 10.4 05/24/2017 [facility] HEMATOLOGY MPV 7.2 7.4 - 10.4 05/24/2017 [facility] HEMATOLOGY Platelet 195 133 - 450 05/24/2017 [facility] HEMATOLOGY MCH 31.1 27.0 - 31.0 05/24/2017 [facility] HEMATOLOGY RDW 14.2 11.5 - 14.5 05/24/2017 [facility] HEMATOLOGY MCHC 33.5 32.0 - 36.0 05/24/2017 [facility] BLOOD BANK RESULTS ABO/Rh O POS 04/26/2017 [facility] BLOOD BANK RESULTS Antibody Scrn Negative (04/26/17 11:30 AM) 04/26/2017 [facility] CHEM PANEL Magnesium Lvl 2.2 1.8 - 2.4 04/26/2017 [facility] ELECTROLYTES AGAP 11.8 10.0 - 20.0 04/26/2017 [facility] ELECTROLYTES eGFR 49 04/26/2017 Result Comment: The eGFR is calculated using the [...] from the National Kidney Disease Education Program (NKDEP) which additionally recommends that when the eGFR is used in patients with extremes of body mass index for purposes of drug dosing, the eGFR should be multiplied by the estimated BMI. [facility] ELECTROLYTES CO2 26 24 - 32 04/26/2017 [facility] ELECTROLYTES Calcium Lvl 9.5 8.5 - 10.5 04/26/2017 [facility] ELECTROLYTES Sodium Lvl 138 135 - 145 04/26/2017 [facility] ELECTROLYTES Creatinine Lvl 1.3 0 0.50 - 1.40 04/26/2017 [facility] ELECTROLYTES Potassium Lvl 4.8 3.5 - 5.1 04/26/2017 [facility] ELECTROLYTES BUN 29 7 - 22 04/26/2017 [facility] ELECTROLYTES Glucose Lvl 107 70 - 99 04/26/2017 [facility] ELECTROLYTES Chloride Lvl 105 95 - 109 04/26/2017 [facility] HEMATOLOGY Basophils # 0.1 0.0 - 0.2 04/26/2017 [facility] HEMATOLOGY Basophils 0.7 0.0 - 1.0 04/26/2017 [facility] HEMATOLOGY Monocytes # 0.9 0.0 - 0.8 04/26/2017 [facility] HEMATOLOGY Eosinophils # 0.3 0.0 - 0.5 04/26/2017 [facility] HEMATOLOGY Segs-Bands # 7.4 1.5 - 8.1 04/26/2017 [facility] HEMATOLOGY Eosinophils 2.4 0.0 - 4.0 04/26/2017 [facility] HEMATOLOGY Lymphocytes # 2.7 1.0 - 5.5 04/26/2017 [facility] HEMATOLOGY Lymphocytes 23.7 20.0 - 40.0 04/26/2017 [facility] HEMATOLOGY Monocytes 7.8 2.0 - 12.0 04/26/2017 [facility] HEMATOLOGY Segs 65.4 45.0 - 75.0 04/26/2017 [facility] HEMATOLOGY INR 0.99 0.85 - 1.17 04/26/2017 [facility] HEMATOLOGY PT 13.1 12.0 - 14.7 04/26/2017 [facility] HEMATOLOGY PTT 29.7 22.9 - 35.8 04/26/2017 [facility] HEMATOLOGY MPV 8.3 7.4 - 10.4 04/26/2017 [facility] HEMATOLOGY MCV 94.4 80.0 - 94.0 04/26/2017 [facility] HEMATOLOGY Platelet 245 133 - 450 04/26/2017 [facility] HEMATOLOGY RDW 14.8 11.5 - 14.5 04/26/2017 [facility] HEMATOLOGY MCHC 32.8 32.0 - 36.0 04/26/2017 [facility] HEMATOLOGY MCH 30.9 27.0 - 31.0 04/26/2017 [facility] HEMATOLOGY Hgb 15.7 14.0 - 18.0 04/26/2017 [facility] HEMATOLOGY Hct 47.9 42.0 - 54.0 04/26/2017 [facility] HEMATOLOGY WBC 11.3 3.7 - 10.4 04/26/2017 [facility] HEMATOLOGY RBC 5.08 4.70 - 6.10 04/26/2017 [facility] CHEM PANEL eGFR 45 10/28/2015 Result Comment: The eGFR is calculated using the [...] from the National Kidney Disease Education Program (NKDEP) which additionally recommends that when the eGFR is used in patients with extremes of body mass index for purposes of drug dosing, the eGFR should be multiplied by the estimated BMI. [facility] CHEM PANEL POC Creatinine 1.4 0.5 - 1.4 10/28/2015 [facility] CHEM PANEL eGFR 45 09/15/2015 Result Comment: The eGFR is calculated using the [...] from the National Kidney Disease Education Program (NKDEP) which additionally recommends that when the eGFR is used in patients with extremes of body mass index for purposes of drug dosing, the eGFR should be multiplied by the estimated BMI. [facility] CHEM PANEL POC Creatinine 1.4 0.5 - 1.4 09/15/2015 [facility] CHEM PANEL eGFR 63 08/11/2015 Result Comment: The eGFR is calculated using the [...] from the National Kidney Disease Education Program (NKDEP) which additionally recommends that when the eGFR is used in patients with extremes of body mass index for purposes of drug dosing, the eGFR should be multiplied by the estimated BMI. [facility] CHEM PANEL Calcium Lvl 8.8 8.5 - 10.5 08/11/2015 [facility] CHEM PANEL AGAP 11.7 10.0 - 20.0 08/11/2015 [facility] CHEM PANEL Chloride Lvl 105 95 - 109 08/11/2015 [facility] CHEM PANEL CO2 27 24 - 32 08/11/2015 [facility] CHEM PANEL Sodium Lvl 139 135 - 145 08/11/2015 [facility] CHEM PANEL Potassium Lvl 4.7 3.5 - 5.1 08/11/2015 [facility] CHEM PANEL BUN 16 7 - 22 08/11/2015 [facility] CHEM PANEL Creatinine Lvl 1.07 0.50 - 1.40 08/11/2015 [facility] CHEM PANEL Glucose Lvl 153 70 - 99 08/11/2015 [facility] HEMATOLOGY Hgb 13.4 14.0 - 18.0 08/11/2015 [facility] HEMATOLOGY Hct 41.2 42.0 - 54.0 08/11/2015 [facility] HEMATOLOGY MCV 90.5 80.0 - 94.0 08/11/2015 [facility] HEMATOLOGY MCH 29.5 27.0 - 31.0 08/11/2015 [facility] HEMATOLOGY RBC 4.55 4.70 - 6.10 08/11/2015 [facility] HEMATOLOGY Platelet 200 133 - 450 08/11/2015 [facility] HEMATOLOGY MPV 7.6 7.4 - 10.4 08/11/2015 [facility] HEMATOLOGY MCHC 32.6 32.0 - 36.0 08/11/2015 [facility] HEMATOLOGY RDW 14.7 11.5 - 14.5 08/11/2015 [facility] HEMATOLOGY WBC 8.7 3.7 - 10.4 08/11/2015 [facility] HEMATOLOGY Basophils 0.4 0.0 - 1.0 08/11/2015 [facility] HEMATOLOGY Monocytes # 0.7 0.0 - 0.8 08/11/2015 [facility] HEMATOLOGY Lymphocytes # 1.3 1.0 - 5.5 08/11/2015 [facility] HEMATOLOGY Segs-Bands # 6.6 1.5 - 8.1 08/11/2015 [facility] HEMATOLOGY Eosinophils 0.7 0.0 - 4.0 08/11/2015 [facility] HEMATOLOGY Eosinophils # 0.1 0.0 - 0.5 08/11/2015 [facility] HEMATOLOGY Monocytes 7.9 2.0 - 12.0 08/11/2015 [facility] HEMATOLOGY Segs 76.0 45.0 - 75.0 08/11/2015 [facility] HEMATOLOGY Lymphocytes 15.0 20.0 - 40.0 08/11/2015 [facility] HEMATOLOGY Platelet 209 133 - 450 08/11/2015 [facility] HEMATOLOGY MPV 7.8 7.4 - 10.4 08/11/2015 [facility] HEMATOLOGY Hct 43.0 42.0 - 54.0 08/11/2015 [facility] HEMATOLOGY MCV 91.3 80.0 - 94.0 08/11/2015 [facility] HEMATOLOGY MCH 28.9 27.0 - 31.0 08/11/2015 [facility] HEMATOLOGY MCHC 31.7 32.0 - 36.0 08/11/2015 [facility] HEMATOLOGY RDW 14.6 11.5 - 14.5 08/11/2015 [facility] HEMATOLOGY WBC 12.1 3.7 - 10.4 08/11/2015 [facility] HEMATOLOGY RBC 4.71 4.70 - 6.10 08/11/2015 [facility] HEMATOLOGY Hgb 13.6 14.0 - 18.0 08/11/2015 [facility] HEMATOLOGY Segs 83.0 45.0 - 75.0 08/11/2015 [facility] HEMATOLOGY Lymphocytes 9.6 20.0 - 40.0 08/11/2015 [facility] HEMATOLOGY Monocytes 6.2 2.0 - 12.0 08/11/2015 [facility] HEMATOLOGY Eosinophils 0.7 0.0 - 4.0 08/11/2015 [facility] HEMATOLOGY Basophils 0.5 0.0 - 1.0 08/11/2015 [facility] HEMATOLOGY Segs-Bands # 10.1 1.5 - 8.1 08/11/2015 [facility] HEMATOLOGY Lymphocytes # 1.2 1.0 - 5.5 08/11/2015 [facility] HEMATOLOGY Monocytes # 0.8 0.0 - 0.8 08/11/2015 [facility] HEMATOLOGY Eosinophils # 0.1 0.0 - 0.5 08/11/2015 [facility] HEMATOLOGY Basophils # 0.1 0.0 - 0.2 08/11/2015 [facility] HEMATOLOGY POC Activated Clotting Ti me 216 08/10/2015 [facility] BLOOD BANK RESULTS ABO/Rh O POS 08/10/2015 [facility] BLOOD BANK RESULTS Antibody Scrn Negative (08/10/15 10:11 AM) 08/10/2015 [facility] ELECTROLYTES AGAP 9.2 10.0 - 20.0 08/10/2015 [facility] ELECTROLYTES eGFR 51 08/10/2015 Result Comment: The eGFR is calculated using the [...] from the National Kidney Disease Education Program (NKDEP) which additionally recommends that when the eGFR is used in patients with extremes of body mass index for purposes of drug dosing, the eGFR should be multiplied by the estimated BMI. [facility] ELECTROLYTES Calcium Lvl 9.1 8.5 - 10.5 08/10/2015 [facility] ELECTROLYTES Creatinine Lvl 1.2 8 0.50 - 1.40 08/10/2015 [facility] ELECTROLYTES Sodium Lvl 140 135 - 145 08/10/2015 [facility] ELECTROLYTES Chloride Lvl 105 95 - 109 08/10/2015 [facility] ELECTROLYTES Potassium Lvl 4.2 3.5 - 5.1 08/10/2015 [facility] ELECTROLYTES CO2 30 24 - 32 08/10/2015 [facility] ELECTROLYTES Glucose Lvl 113 70 - 99 08/10/2015 [facility] ELECTROLYTES BUN 22 7 - 22 08/10/2015 [facility] HEMATOLOGY Monocytes # 0.7 0.0 - 0.8 08/10/2015 [facility] HEMATOLOGY Eosinophils # 0.3 0.0 - 0.5 08/10/2015 [facility] HEMATOLOGY Lymphocytes # 2.4 1.0 - 5.5 08/10/2015 [facility] HEMATOLOGY Eosinophils 3.6 0.0 - 4.0 08/10/2015 [facility] HEMATOLOGY Basophils 0.5 0.0 - 1.0 08/10/2015 [facility] HEMATOLOGY Segs-Bands # 4.3 1.5 - 8.1 08/10/2015 [facility] HEMATOLOGY Lymphocytes 31.1 20.0 - 40.0 08/10/2015 [facility] HEMATOLOGY Monocytes 8.9 2.0 - 12.0 08/10/2015 [facility] HEMATOLOGY Segs 55.9 45.0 - 75.0 08/10/2015 [facility] HEMATOLOGY MCV 91.0 80.0 - 94.0 08/10/2015 [facility] HEMATOLOGY Platelet 217 133 - 450 08/10/2015 [facility] HEMATOLOGY MPV 7.5 7.4 - 10.4 08/10/2015 [facility] HEMATOLOGY RDW 14.4 11.5 - 14.5 08/10/2015 [facility] HEMATOLOGY MCH 28.9 27.0 - 31.0 08/10/2015 [facility] HEMATOLOGY MCHC 31.7 32.0 - 36.0 08/10/2015 [facility] HEMATOLOGY Hct 41.6 42.0 - 54.0 08/10/2015 [facility] HEMATOLOGY Hgb 13.2 14.0 - 18.0 08/10/2015 [facility] HEMATOLOGY RBC 4.58 4.70 - 6.10 08/10/2015 [facility] HEMATOLOGY WBC 7.7 3.7 - 10.4 08/10/2015 [facility] HEMATOLOGY PTT 32.3 22.9 - 35.8 08/10/2015 [facility] HEMATOLOGY PT 14.8 12.0 - 14.7 08/10/2015 [facility] HEMATOLOGY INR 1.13 0.85 - 1.17 08/10/2015 [facility] BLOOD BANK RESULTS ABO/Rh O POS 07/08/2015 [facility] BLOOD BANK RESULTS Antibody Scrn Negative (07/08/15 7:13 AM) 07/08/2015 [facility] CHEM PANEL eGFR 46 07/08/2015 Result Comment: The eGFR is calculated using the [...] from the National Kidney Disease Education Program (NKDEP) which additionally recommends that when the eGFR is used in patients with extremes of body mass index for purposes of drug dosing, the eGFR should be multiplied by the estimated BMI. [facility] CHEM PANEL Calcium Lvl 8.9 8.5 - 10.5 07/08/2015 [facility] CHEM PANEL Chloride Lvl 105 95 - 109 07/08/2015 [facility] CHEM PANEL CO2 29 24 - 32 07/08/2015 [facility] CHEM PANEL Sodium Lvl 140 135 - 145 07/08/2015 [facility] CHEM PANEL Creatinine Lvl 1.38 0.50 - 1.40 07/08/2015 [facility] CHEM PANEL Potassium Lvl 4.1 3.5 - 5.1 07/08/2015 [facility] CHEM PANEL Glucose Lvl 127 70 - 99 07/08/2015 [facility] CHEM PANEL BUN 22 7 - 22 07/08/2015 [facility] CHEM PANEL Alk Phos 108 39 - 136 07/08/2015 [facility] CHEM PANEL Albumin Lvl 3.2 3.5 - 5.0 07/08/2015 [facility] CHEM PANEL Total Protein 7.3 6.4 - 8.4 07/08/2015 [facility] CHEM PANEL Bili Total 0.4 0.2 - 1.3 07/08/2015 [facility] CHEM PANEL ALT 17 0 - 65 07/08/2015 [facility] CHEM PANEL AST 14 0 - 37 07/08/2015 [facility] CHEM PANEL AGAP 10.1 10.0 - 20.0 07/08/2015 [facility] CHEM PANEL B/C Ratio 16 6 - 25 07/08/2015 [facility] CHEM PANEL A/G Ratio 0.8 0.7 - 1.6 07/08/2015 [facility] CHEM PANEL Globulin 4.1 2.0 - 4.0 07/08/2015 [facility] CHEM PANEL Magnesium Lvl 1.7 1.8 - 2.4 07/08/2015 [facility] HEMATOLOGY INR 1.09 0.85 - 1.17 07/08/2015 [facility] HEMATOLOGY PT 14.4 12.0 - 14.7 07/08/2015 [facility] HEMATOLOGY PTT 30.9 22.9 - 35.8 07/08/2015 [facility] HEMATOLOGY RBC 4.54 4.70 - 6.10 07/08/2015 [facility] HEMATOLOGY Hgb 13.4 14.0 - 18.0 07/08/2015 [facility] HEMATOLOGY WBC 9.9 3.7 - 10.4 07/08/2015 [facility] HEMATOLOGY MCV 92.1 80.0 - 94.0 07/08/2015 [facility] HEMATOLOGY MCH 29.5 27.0 - 31.0 07/08/2015 [facility] HEMATOLOGY MCHC 32.0 32.0 - 36.0 07/08/2015 [facility] HEMATOLOGY Hct 41.8 42.0 - 54.0 07/08/2015 [facility] HEMATOLOGY MPV 7.7 7.4 - 10.4 07/08/2015 [facility] HEMATOLOGY Platelet 281 133 - 450 07/08/2015 [facility] HEMATOLOGY RDW 14.3 11.5 - 14.5 07/08/2015 [facility] HEMATOLOGY Segs 65.9 45.0 - 75.0 07/08/2015 [facility] HEMATOLOGY Basophils 0.6 0.0 - 1.0 07/08/2015 [facility] HEMATOLOGY Eosinophils 2.7 0.0 - 4.0 07/08/2015 [facility] HEMATOLOGY Segs-Bands # 6.5 1.5 - 8.1 07/08/2015 [facility] HEMATOLOGY Monocytes # 0.8 0.0 - 0.8 07/08/2015 [facility] HEMATOLOGY Lymphocytes # 2.3 1.0 - 5.5 07/08/2015 [facility] HEMATOLOGY Monocytes 7.7 2.0 - 12.0 07/08/2015 [facility] HEMATOLOGY Lymphocytes 23.1 20.0 - 40.0 07/08/2015 [facility] HEMATOLOGY Eosinophils # 0.3 0.0 - 0.5 07/08/2015 [facility] HEMATOLOGY Basophils # 0.1 0.0 - 0.2 07/08/2015 [facility] Pathology Reports No Data Provided for This Section Diagnostic Reports Report Value Date Source Retroperitoneal Complete US ST UDY: Retroperitoneal ultrasound COMPARISON: None. HISTORY: - N18.9 Chronic kidney disease, unspecified FINDINGS: Ultrasound imaging of the kidneys and bladder was performed. Aorta: Infrarenal abdominal aortic aneurysm is seen with maximum diameter of 3.3 cm. IVC: Patent. Right kidney: Normal in echogenicity. Measures 13.0 cm in length. Cortical thickness of 1.5 cm. No hydronephrosis. No echogenic shadowing renal stones. 2 simple cysts are seen measuring up to 4.6 cm. Left kidney: Has been removed. Urinary bladder: Normal. Prevoid volume is 110 ml. Prostate gland: Volume of 54 mL. Ureteral jet (s): Right ureteral jet is seen. IMPRESSION: 1. Right renal cyst. No hydronephrosis. 2. Left nephrectomy. 3. Fusiform aneurysm of infrarenal aorta . Recommend follow-up cross-sectional imaging every 2 years. 06/13/2019 [facility] Brain wo contrast CT EXAM: CT BRAIN WITHOUT CONTRAST INDICATION: - subdural hematoma COMPARISON: 03/17/2019 TECHNIQUE: Routine axial CT images of the brain were obtained. DISCUSSION: Interval decrease in size of parafalcine subdural hematoma. No mass effect. No acute ischemia. Microangiopathic changes and parenchymal volume loss are redemonstrated. Mucosal thickening in the anterior and posterior ethmoidal air cells and right frontal sinus is demonstrated. IMPRESSION: Interval decrease in size of parafalcine subdural hematoma without mass effect. 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 TECHNIQUE: Chest 1 view FINDINGS: Comparison is made to March 19. Cardiomediastinal silhouette is unchanged with TAVR. There is a midline brace over the chest. Bipolar left subclavian pacemaker remains in place. Lungs are low in volume with bibasilar platelike atelectasis. No definite pleural effusions. IMPRESSION: The lungs are low in volume with bibasilar platelike atelectasis. 03/26/2019 [facility] Chest 1view DX EXAM: XR CHEST 1 VIEW DATE: 03/19/2019 1:59 CDT INDICATION: SOB - SOB COMPARISON: 03/18/2019 TECHNIQUE: AP chest IMPRESSION: 1. Diminished lung volumes bilaterally is prominent lung vasculature. 2. Costophrenic sulci are sharp. 3. Left diaphragmatic pleural calcifica tions are noted. 4. Cardiomediastinal silhouette is norm al for technique. Status post TAPVR. Aortic atherosclerotic disease. 5. Left chest wall dual leads cardiac p acing device with leads terminate in the right atrium and right ventricle. 6. Surgical clips are seen in the left upper abdomen. 7. Osseous structures are stable. 03/19/2019 [facility] Chest 1view DX EXAM: XR CHEST 1 VIEW DATE: 03/18/2019 7:29 CDT INDICATION: - hypoxia. TECHNIQUE: Chest 1 view FINDINGS: Comparison is made to March 17. Cardiomediastinal silhouette is unchanged, with TAVR and aortic calcifications. A bipolar left subclavian pacemaker remains in place. The lungs are low in volume, with central vascular crowding and bibasilar platelike atelectasis. Mild residual pulmonary edema has improved. No pleural effusions. 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 IMPRESSION: 1. The lungs are low in volume, with xiomara tral vascular crowding and bibasilar platelike atelectasis. 2. Calcified pleural plaques. 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 TECHNIQUE: AP and lateral radiographs of the thoracic spine FINDINGS: Vertebral body heights, disc heights and alignment are preserved. Degenerative changes seen throughout the thoracic spine with osteophyte formation throughout. Pacemaker leads appear in the region right ventricle, unchanged from previous exam. Surgical clips in the liver quadrant and lower mid abdomen. Postsurgical changes from TAVR. . IMPRESSION: No acute abnormality. Degenerative changes at the thoracic spine with osteophyte formation. 03/17/2019 [facility] Chest 1 v for Placement DX EXA M: XR CHEST 1 VIEW DATE: 03/17/2019 4:46 CDT INDICATION: PPM Lead Placement - Chest 1 view for line placement COMPARISON: 03/16/2019 TECHNIQUE: AP chest. IMPRESSION: Interval placement of left subclavian approach dual-lead pacemaker with its leads projecting over the right atrium and right ventricle. No pneumothorax. Trace right pleural effusion. Low lung volumes with bronchovascular crowding. Diffuse patchy opacities bilaterally may represent scattered subsegmental atelectasis, superimposed infection cannot be excluded. Bibasilar platelike atelectasis. Stable cardiomediastinal silhouette and postsurgical changes following TAVR. Calcifications are seen the aortic knob. There are 2 surgical clips in the left upper abdominal quadrant. CONCLUSION: 1. Interval placement of left subclavia n approach dual-lead pacemaker with its leads projecting over the right atrium and right ventricle. No pneumothorax. Other findings are stable as described above. 03/17/2019 [facility] Brain wo contrast CT EXAM: CT BRAIN WITHOUT CONTRAST INDICATION: - worsening SDH COMPARISON: March 16, 2019 TECHNIQUE: Routine axial CT images of the brain were obtained. DISCUSSION: Some interval redistribution but overall stable size of parafalcine subdural hematoma. No interval new hemorrhage. No subfalcine or downward transtentorial herniation. No acute ischemia. Microangiopathic changes and parenchymal volume loss are redemonstrated. No hydrocephalus. IMPRESSION: Some redistribution but overall stable size of parafalcine subdural hematoma without subfalcine or downward transtentorial herniation. 03/16/2019 [facility] Femur series DX EXAM: XR RIGHT FEMUR 2 VIEWS DATE: 03/16/2019 20:56 CDT INDICATION: - pain sp fall COMPARISON: None. TECHNIQUE: AP and lateral radiographs of the femur FINDINGS: No acute fracture or malalignment is identified. Degenerative changes seen at the right hip and right knee with joint space loss and osteophyte production. These changes are mild in the hip but severe in the right knee with tricompartmental disease. No soft tissue abnormality is identified. Diffuse vascular calcifications. IMPRESSION: No acute abnormality. Degenerative changes in the right hip and knee as above. 03/16/2019 [facility] Trauma Chest/Abd/Pelvis wo contrast CT EXAM: CT CHEST WITHOUT CONTRAST EXAM: CT ABDOMEN AND PELVIS WITHOUT CONTRAST DATE: 03/16/2019 15:55 CDT INDICATION: - back pain COMPARISON: Chest and pelvic x-rays earlier the same day, CTA chest abdomen and pelvis 03/09/2019 TECHNIQUE: Volumetric CT of the chest, abdomen and pelvis is acquired without intravenous administration of contrast. Axial, coronal and sagittal images are provided. IV contrast: None Oral contrast: None. DLP: 1204 mGy-cm UT SECTION: ER FINDINGS: Lines and tubes: None. Lower Neck: Supraclavicular soft tissues are unremarkable. Thoracic Aorta and Mediastinum: No mediastinal hematoma. Evaluation of vascular structures is limited without intravenous contrast. Heart size is normal. TAVR is in place. Calcific coronary atherosclerosis is noted. No pericardial effusion. Lungs, Pleura, Diaphragm: No pulmonary contusions. Bilateral dependent atelectasis. Bilateral posterior pleural thickening with calcified pleural plaques. No pleural effusions or pneumothorax. Liver and biliary tree: Normal. No injury. No biliary abnormality. Gallbladder: Normal. No CT evidence of gallstones. No injury. Vicarious excretion of contrast is seen in the gallbladder. Pancreas: No injury. Spleen: No injury. Punctate splenic parenchymal calcifications. Adrenals: Normal. No injury. Kidneys and ureters: No injury. Absent left kidney surgical sutures in the left renal fossa. Multiple right-sided renal cysts the largest measuring 4.5 cm in diameter in the right superior pole. Mild right perinephric fat stranding is present. Bladder: No injury. Bladder trabeculation is noted. Reproductive organs: No injury. Prostatomegaly measuring 5.0 x 6.3 cm. Hypertrophied median lobe indents the urinary bladder base. Gastrointestinal tract: No bowel injury. Noninflamed colonic diverticula are seen. Note made of contrast in the rectum and left colon. Peritoneum and retroperitoneum: No fluid collections or free air. Lymph nodes: Normal. Vasculature: No vascular injury. Extensive aortoiliac atherosclerotic calcifications are present. Infrarenal abdominal aortic aneurysm measures up to 3.7 cm, unchanged from the prior comparison CT. Vascular calcifications are noted. Spine/ Bones: Flowing anterior osteophytes of the thoracic spine representing changes of diffuse idiopathic skeletal hyperostosis. Nondisplaced, transverse oblique fracture is noted involving the T4 vertebral body disrupting the anterior cortex (series ) consistent with hyperextension fracture. No significant height loss or retropulsion. The fracture into the posterior elements. Multilevel degenerative changes of the thoracolumbar spine are visualized with moderate to severe degenerative changes along the lower lumbar spine. Old anterior left sixth, seventh rib fractures. Ossification extending horizontally and vertically of the lateral aspect of the 10th rib could be related to prior trauma. Soft tissues: Soft tissue stranding is seen over the bilateral groins and could be related to prior vascular access. Small left fat-containing inguinal hernias noted. IMPRESSION: 1. Transverse oblique nondisplaced T4 v ertebral body fracture disrupting the anterior cortex, consistent with hyperextension fracture. AO spine T4: B3. 2. Rest of the findings, as described in the body of the report, are not significantly changed compared to the immediate prior. Findings reported to Dr. Foley by Dr. Sauceda at 1725 hours 03/08/2019. 03/16/2019 [facility] Spine cervical wo contrast CT EXAM: CT CERVICAL SPINE WITHOUT CONTRAST DATE: 03/16/2019 15:54 CDT INDICATION: - neck pain COMPARISON: None TECHNIQUE: Volumetric acquisition of the cervical spine without contrast. Axial, sagittal and coronal reconstructions. IV contrast: None. DLP: 666.3 mGy-cm FINDINGS: The spine is imaged from the skull base to the level of T1. A triangular bony fragment is noted at the anterior superior endplate of C6 vertebral body (series 7/image 30) which may represent age-indeterminate fracture through an osteophyte. No definite associated prevertebral soft tissue prominence/hematoma. No other acute cervical spine fracture. Moderate to severe multilevel degenerative changes of the cervical spine are visualized with C5-C6, C6-C7 disc space narrowing representing degenerative disc disease along with degenerative endplate changes, vacuum disc phenomenon, multilevel osteophytes, facet and uncovertebral hypertrophy causing multilevel neural foraminal narrowing. Minimal anterior listhesis of C3 over C4 and C4 over C5 appears chronic and likely related to degenerative change. The pre and paravertebral soft tissues are within normal limits. No apical pneumothorax. IMPRESSION: 1. Triangular bony fragment at the ante rior superior endplate of C6 vertebral body (series 7/image 30) may represent age-indeterminate fracture through an osteophyte. No definite associated prevertebral soft tissue prominence/hematoma. Magnetic resonance imaging cervical spine is recommended for further evaluation and confirmation. 2. No other acute traumatic abnormality . 3. Moderate to severe multilevel degene rative changes of the spine, as described. 03/16/2019 [facility] Brain-Outside Consult CT EXAM: CT BRAIN WITHOUT CONTRAST DATE: 03/16/2019 at 11:12 AM INDICATION: 89-year-old male patient presenting after falling from standing. Images acquired in an outside institution, submitted for second interpretation. COMPARISON: MRA of the brain without contrast dated 10/28/2015. TECHNIQUE: Axial CT images of the brain were obtained. Sagittal and coronal reformats. IV contrast: None. DLP: Information is not available FINDINGS: Lobulated dense subdural collection is seen lining the right side of the anterior third of the falx cerebri, measuring up to 8 mm in maximum thickness, without significant mass effect upon the adjacent brain parenchyma. There is no midline shift or signs of ongoing brain herniation. Diffuse enlargement of the CSF containing spaces corresponding to brain volume loss. Patchy hypodensity of the periventricular white matter, likely corresponding to microvascular ischemic changes. Extensive calcification and tortuosity of the major intracranial arterial structures. Focal hypodensity of the genu of the left internal capsule, associated with volume loss. There is no fracture of the skull, skull base, or visible facial bones. Hyperdense secretions are seen within the right frontal sinus, and right ethmoid air cells, with apparent enlargement of the frontoethmoidal recess. IMPRESSION: 1. Right parafalcine subdural hematoma without significant mass effect 2. Age appropriate brain volume loss as sociated with microvascular ischemic changes of the periventricular white matter. 3. Hyperdense secretions within the rig ht frontal sinus and right ethmoid air cells, with apparent enlargement of the frontoethmoidal recess. Differential considerations include desiccated secretions, and chronic fungal sinusitis. 03/16/2019 [facility] Chest 1view DX EXAM: XR CHEST 1 VIEW DATE: 03/16/2019 15:35 CDT INDICATION: - chest pain COMPARISON: Same-day chest radiograph from 03/16/2019 at 1047 hours. UT SECTION: ER TECHNIQUE: AP chest. FINDINGS: Lines, tubes and hardware: Aortic valve is unchanged in position. Left upper quadrant surgical clips again noted. Lungs and pleura: Very low lung volumes with vascular crowding. Bibasilar pleural calcifications are present. No focal consolidation. No pleural effusions or pneumothorax. Possible small right upper lobe calcified granulomas. Heart and mediastinum: Cardiomediastinal silhouette is stable from the comparison. Note made of tortuous aorta with aortic arch calcifications. Bones, soft tissues: No acute abnormality. IMPRESSION: 1. Very low lung volumes with vascular crowding. 2. Bibasilar pleural calcifications whi ch could be related to asbestos exposure. Please correlate clinically. 03/16/2019 [facility] Brain wo contrast CT EXAM: CT BRAIN WITHOUT CONTRAST DATE: 03/16/2019 at 1605 hours INDICATION: Subdural hemorrhage COMPARISON: Brain CT of the same date performed at [facility] RevCT TECHNIQUE: Routine axial images of the brain were obtained. IV contrast: None DISCUSSION: The parafalcine subdural hemorrhage is unchanged. No new hemorrhage has developed over the short interval. The appearance of the brain parenchyma is unchanged. The ventricles and basal cisterns remain patent. IMPRESSION: Stable 03/16/2019 [facility] Chest 1view DX EXAM: AP VIEW O F THE CHEST DATE: 03/12/2019 1:11 PM CDT INDICATION: - dyspnea COMPARISON: CXR 03/07/2019 TECHNIQUE: Single frontal view of the chest. FINDINGS: Lines and Tubes: Median sternotomy wires. Cardiac valve. Left upper quadrant surgical clips. The visualized bones, soft tissues and prominent cardiac silhouette with vascular calcifications of the aortic knob are unchanged. Persistent calcified plaque over the left hemidiaphragm. IMPRESSION: * Persistent elevation of the right hemidiaphragm with low lung volumes with accentuated vascular markings and bibasilar atelectasis. Otherwise, no large consolidations. * Probable trace pleural effusions. No large pneumothorax in the semiupright radiograph. 03/12/2019 [facility] Ext Lower non vascular US EXAM : US EXTREMITY DATE: 03/11/2019 18:00 CDT INDICATION: - hematoma, groin COMPARISON: None. TECHNIQUE: Multiplanar grayscale and color Doppler ultrasound of the right groin. FINDINGS: Area of concern reveals no focal collections. Other: None. IMPRESSION: No collection identified within the right groin. 03/11/2019 [facility] Ext Upper non vascular US EXAM : US UPPER EXTREMITY NONVASCULAR DATE: 03/11/2019 13:27 CDT INDICATION: - wrist, hematoma, soft tissue swelling ADDITIONAL INFORMATION: None. COMPARISON: None. TECHNIQUE: Multiplanar grayscale and color Doppler ultrasound of the right anterior wrist soft tissues. FINDINGS: Mild edema of the soft tissues in the anterior aspect of the right wrist. There is no fluid collection. IMPRESSION: 1. Mild edema in the anterior soft tiss ues of the right wrist. No fluid collection. 03/11/2019 [facility] Heart/coronary art TAVR CTA EX AM: CTA HEART WITH CONTRAST DATE: 03/09/2019 3:54 PM CDT INDICATION: - TAVR protocol. Aortic stenosis, TAVR candidate. COMPARISON: No available prior cardiac CTA for comparison TECHNIQUE: Contrast imaging was performed on a [employer] [address] scanner utilizing a single breath hold, at 750 mA and 120 kVp. Retrospective ECG gating was performed, at a heart rate of 91-99 bpm. Images were reformatted at 0.5 mm intervals and sent to the [employer] workstation for interpretation of both systolic and diastolic phases. IV contrast: 90 mL of Visipaque 320 contrast was delivered intravenously at 5 mL/sec followed by a 50 mL normal saline bolus chaser. DLP: 603 mGy-cm STUDY QUALITY: Good FINDINGS: Aortic root landmarks (dimensions determined in systolic phases) Aortic valve: Trileaflet: asymmetricallycalcified; bulky leaflet: No; right/left/noncoronary Aortic annulus: 34 x 26 mm; average 28 mm; area 6.2 sq cm; circumference 93 mm Sino-tubular junction: 35 x 32 mm; average 33 mm Ao annulus to coronary height: left main: 15 mm; right: 17 mm Ao annulus to STJ length: 21 mm Sinuses of Valsalva: width 36 mm Ascending aorta width at 40 mm from annulus: 38 mm Descending thoracic aorta: width: 25 mm Coplanar TAVR angle: 7 and CRANIAL 7 Coronary Arteries: This patient has a right dominant system, with normal origins of the coronary arteries. Dense calcifications are seen along the 3 coronary arteries with inadequate evaluation of the arterial lumen. Basal septal hypertrophy: Yes Severe hypertrophy (1.5 cm wall thickness): Yes, 1.7 cm Intracardiac masses: No Other cardiac findings: Pacemaker: No Artificial valve: No; Location: N/A Intracardiac closure device: No Mitral annular calcifications are noted with dilated left atrium. Left ventricular function: Left ventricular ejection fraction: 38% Left ventricular end-diastolic volume: 173 mL Left ventricular end-systolic volume: 107 mL Left ventricular stroke volume: 66 mL IMPRESSION: 1. Trileaflet symmetrically calcified a ortic valve and with aortic annular measurements as described above. 2. Moderately decreased left ventricula r function with LVEF of 38%. 3. Mitral annular calcification with di lated left atrium. 4. Dense calcifications are seen along the 3 coronary arteries with inadequate evaluation of the luminal narrowing. 03/09/2019 [facility] Chest/Abd/Pelvis TAVR CTA EXAM : VIR CT angiogram thorax abdomen and pelvis. TAVR protocol INDICATION: 89 years old Male with aortic stenosis and being worked up for TAVR. TECHNIQUE: Following the administration of intravenous contrast, 3 mm slices from the thoracic inlet through the pubic symphysis were obtained in arterial phase. MIP 3-D volume rendered reconstructions were created on a separate workstation and reviewed. COMPARISON: None FINDINGS: AORTA AND ITS BRANCHES: Extensive atherosclerotic disease demonstrated throughout the aorta and its branches. No significant stenosis at the origins of the great vessels. Both subclavian arteries and brachial arteries are widely patent with no significant stenosis and have a diameter greater than 7 mm. Conventional hepatic arterial anatomy. The celiac, SMA and LILA origins are patent. Accessory right renal artery demonstrated. The main right renal artery bilateral renal arteries. 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 The iliac arteries are extremely tortuous but demonstrate no significant stenosis. 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 Vascular Measurements: Ascending aorta: 37 mm Aortic arch: 32 mm Mid-descending thoracic aorta: 32 mm Aorta at diaphragm: 28 mm Aorta at celiac axis: 25 mm Aorta at superior mesenteric artery: 25 mm Mid-infrarenal aorta: 25 mm Right common iliac artery: 14 mm Right external iliac artery: 10 mm Right common femoral artery: 18 mm Left common iliac artery: 15 mm Left external iliac artery: 10 mm Left common femoral artery: 13 mm Right subclavian artery: 13 mm Left subclavian artery: 13 mm CHEST`: Aortic valve calcification in keeping with aortic stenosis. Secondary left ventricular dilatation. Coronary artery calcification noted in keeping with coronary arterial disease. See detailed CTA obtained on the same day. No significant mediastinal lymphadenopathy. Normal appearances of the thyroid gland. No significant axillary lymphadenopathy. The visualized pulmonary arteries are unremarkable with no evidence of pulmonary embolus. Bibasilar fibrotic changes demonstrated with bilateral relatively acute groundglass changes. 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 No definite focal intrapulmonary nodule. ABDOMEN: Previous cholecystectomy noted. Normal appearances of the liver gallbladder, pancreas, spleen, and adrenals. A previous left nephrectomy. The right kidney has multiple hypoattenuating lesions consistent with simple cyst. In the midpole there is a focal mixed attenuating lesion measuring about 2.5 cm laterally with irregular margins concerning for possible neoplastic lesion. There are no previous images for comparison. Recommend further evaluation of this lesion with magnetic resonance imaging. No significant retroperitoneal lymphadenopathy. No free fluid or air. Colonic diverticulosis without evidence of diverticulitis. No obvious mass lesion or gross stricturing lesion. Prostatomegaly demonstrated. MUSCULOSKELETAL STRUCTURES: Degenerative spinal changes with secondary thoracolumbar kyphosis. No destructive bone lesion. IMPRESSION: 1. CTA performed for TAVR planning, wit h the appropriate arterial diameter measurements given above. 2. Aortic valve calcification in keepin g with aortic stenosis. Coronary artery calcification please see detailed CTA of the coronary arteries obtained on the same day. 3. 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 4. Subtle hypoattenuating lesion in the midpole of the right kidney with irregular margins concerning for possible neoplasm. Recommend further interrogation with MRI scan. 5. Incidental note of colonic diverticu losis without evidence of diverticulitis, degenerative spinal changes and prostatomegaly. I have reviewed these images and agree with the above findings. 03/09/2019 [facility] Chest 1view DX EXAM: XR CHEST 1 VIEW DATE: 03/07/2019 3:00 CDT INDICATION: - dyspnea. TECHNIQUE: Chest 1 view FINDINGS: Comparison is made to March 05. Cardiomediastinal silhouette is unchanged. The lungs are low in volume, with bibasilar subsegmental atelectasis. Calcification outlines the left hemidiaphragm which could be due to calcified pleural plaque. Costophrenic sulci are clear, without effusions. IMPRESSION: 1. The lungs are low in volume, with bib asilar subsegmental atelectasis. 2. Calcified pleural plaque over the lef t hemidiaphragm. 03/07/2019 [facility] Chest 1view DX EXAM: XR CHEST 1 VIEW DATE: 03/05/2019 5:35 PM CDT INDICATION: - sob COMPARISON: September 10, 2017 1139 hours TECHNIQUE: AP chest FINDINGS/IMPRESSION: Compared to the prior examination redemonstration of underinflated lungs and subsegmental atelectasis in both lung bases. There is ectasia of the thoracic aorta. Surgical clips are seen in the left upper quadrant unchanged from prior examination. Regional skeleton is unremarkable. There is no pneumothorax. 03/05/2019 [facility] Chest 2 views DX EXAM: XR CHES T 2 VIEWS DATE: 09/10/2017 11:51 AM CDT INDICATION: - R06.02 Shortness of breath COMPARISON: None. TECHNIQUE: PA and lateral chest radiographs FINDINGS: Elevated hemidiaphragms with bibasilar subsegmental atelectasis is noted. Heart is within normal limits. Calcification is identified in the aortic knob with tortuosity of the descending thoracic aorta. Residual contrast is noted within the gastrointestinal tract in the right subdiaphragmatic region. Multiple surgical clips are evident in the left mid abdomen and left upper quadrant. IMPRESSION: 1. Elevated hemidiaphragms and bibasilar subsegmental atelectasis. 09/10/2017 [facility] Neck w/wo contrast MRA EXAM: M RA BRAIN WITHOUT CONTRAST EXAM: MRA NECK WITH AND WITHOUT CONTRAST DATE: 10/28/2015 10:30 AM CDT INDICATION: intracranial carotid stenosis. COMPARISON: Not available TECHNIQUE: - Three-dimensional time of flight brai n MR angiography of intracranial vessels is performed, and maximum intensity projection reformatted images are presented in multiple three-dimensional rotational projections. -3-dimensional post gadolinium MR angiog dianna and 2-D time of flight neck MR angiography of extracranial arterial system was performed and reformatted images are presented in three-dimensional maximum intensity rotational projections. Three-dimensional [id number]-[id number] MR angiography centered at the carotid bifurcations was included. -IV contrast: 17 mL of MultiHance FINDINGS: BRAIN MRA: The information extracted by the time of flight is limited due to to low cardiac output. Information is obstructed from the MR angiogram with contrast.. NECK MRA:The study is limited due to technique The aortic arch as a normal configuration along with the main vessels. The cervical common carotid arteries have a normal course caliber and contour. Filiform is seen in the right internal carotid artery after the bifurcation. No connection can be seen between the distal internal carotid artery in the middle cerebral artery and anterior cerebral artery on the right side in the study after contrast All the vessels are tortuous and irregular consistent with diffuse atheromatosis. Vertebrobasilar circulation: A focal area of stenosis is seen in the proximal and the cranial portion of the left vertebral artery which measures approximately 5 mm in length and is located 2.2 cm proximal to the origin of the basilar artery, the stenosis is approximately 80% of the lumen The right vertebral artery is tortuous without significant occlusions or stenosis. The basilar artery is patent. The bifurcation of the basilar artery is within normal limits. IMPRESSION: 1. Filiform flow of the right internal carotid artery from its takeoff throughout its extracranial portion. The intracranial internal carotid artery on the right shows very slow flow with no evidence of connection of the distal internal carotid artery with a MCA or the before meals on this side. 2. Focal area of stenosis of the proxim al intracranial left vertebral artery with normal distal flow. All qualitative and quantitative assessments of carotid bifurcation and proximal internal carotid artery stenosis are made referencing the distal internal carotid artery (NASCET criteria). 10/28/2015 [facility] Brain w/wo contrast MRA EXAM: MRA BRAIN WITHOUT CONTRAST EXAM: MRA NECK WITH AND WITHOUT CONTRAST DATE: 10/28/2015 10:30 AM CDT INDICATION: intracranial carotid stenosis. COMPARISON: Not available TECHNIQUE: - Three-dimensional time of flight brai n MR angiography of intracranial vessels is performed, and maximum intensity projection reformatted images are presented in multiple three-dimensional rotational projections. -3-dimensional post gadolinium MR angiog dianna and 2-D time of flight neck MR angiography of extracranial arterial system was performed and reformatted images are presented in three-dimensional maximum intensity rotational projections. Three-dimensional [id number]-ma-[id number] MR angiography centered at the carotid bifurcations was included. -IV contrast: 17 mL of MultiHance FINDINGS: BRAIN MRA: The information extracted by the time of flight is limited due to to low cardiac output. Information is obstructed from the MR angiogram with contrast.. NECK MRA:The study is limited due to technique The aortic arch as a normal configuration along with the main vessels. The cervical common carotid arteries have a normal course caliber and contour. Filiform is seen in the right internal carotid artery after the bifurcation. No connection can be seen between the distal internal carotid artery in the middle cerebral artery and anterior cerebral artery on the right side in the study after contrast All the vessels are tortuous and irregular consistent with diffuse atheromatosis. Vertebrobasilar circulation: A focal area of stenosis is seen in the proximal and the cranial portion of the left vertebral artery which measures approximately 5 mm in length and is located 2.2 cm proximal to the origin of the basilar artery, the stenosis is approximately 80% of the lumen The right vertebral artery is tortuous without significant occlusions or stenosis. The basilar artery is patent. The bifurcation of the basilar artery is within normal limits. IMPRESSION: 1. Filiform flow of the right internal carotid artery from its takeoff throughout its extracranial portion. The intracranial internal carotid artery on the right shows very slow flow with no evidence of connection of the distal internal carotid artery with a MCA or the before meals on this side. 2. Focal area of stenosis of the proxim al intracranial left vertebral artery with normal distal flow. All qualitative and quantitative assessments of carotid bifurcation and proximal internal carotid artery stenosis are made referencing the distal internal carotid artery (NASCET criteria). 10/28/2015 [facility] HVI VAS Arterial/bypass Lower Ext bilat INDICATION: Bilateral groin hematomas. IMPRESSION: 1. There is no evidence of arteriovenous fistula or pseudoaneurysm formation in either the right or left groin. COMMENTS: No prior imaging study is available for comparison. Grayscale, color-flow, and Doppler examination of the arterial and venous system was performed in the bilateral groins. Examination of the bilateral common femoral artery demonstrates normal triphasic waveforms. There is no evidence of pseudoaneurysm formation. Examination of the bilateral common femoral vein demonstrates normal phasic flow without any evidence of arteriovenous fistula formation. [facility] Bi INDICATION: History of left carotid endarterectomy. IMPRESSION: 1. There is evidence of mild atheroscler otic disease of the bilateral internal carotid arteries and carotid bulbs consistent with less than 50% stenosis. 2. Interpretation of Doppler waveforms s uggest distal intracranial right internal carotid artery stenosis. Clinical correlation is indicated. 3. There is antegrade flow in the verteb ral arteries. COMMENT: No prior studies are available for comparison. Bilateral grayscale, color-flow, and Doppler examination of the extracranial carotid arterial system was performed. On the right, radius, calcified plaque is noted in the internal carotid artery. Spectral waveform analysis of the distal right internal carotid artery suggests high resistance waveforms. This may be associated with distal intracranial internal carotid artery stenosis. The right internal carotid to common carotid peak systolic velocity ratio is 1.08. The peak systolic velocity in the internal carotid artery is 66.8 cm/sec. This is consistent with less than 50% stenosis. On the left, mild calcification is noted in the internal carotid artery. The left internal carotid to common carotid peak systolic velocity ratio is 1.14. The peak systolic velocity in the internal carotid artery is 124 cm/sec. The end diastolic velocity in the internal carotid artery is 34.4 cm/sec. This is consistent with less than 50% stenosis. Bilateral external carotid arteries are patent. Bilateral antegrade flow was noted in the vertebral arteries. 08/18/2015 [facility] HVI VAS Arterial/bypass Lower Ext Unilat INDICATION: groin hematoma IMPRESSION: 1. There is no evidence of arteriovenous fistula or pseudoaneurysm formation. 2. There is an avascular fluid collectio n with no internal echoes noted above the inguinal crease measuring 1.8 x 1.8 cm in diameter. COMMENTS: No prior imaging study is available for comparison. Limited right groin grayscale, color-flow, and Doppler examination of the arterial and venous system was performed. Examination of the right common femoral artery demonstrates biphasic waveforms. There is no evidence of pseudoaneurysm formation. Examination of the right common femoral vein demonstrates normal phasic flow without any evidence of arteriovenous fistula formation. There is a 1.8 x 1.8 cm avascular fluid collection above the inguinal crease. There are no internal echoes. Doppler and color-flow examination demonstrated no pulsatile or phasic flow. 07/08/2015 [facility] Consultation Notes No Data Provided for This Section Discharge Summaries No Data Provided for This Section History and Physicals No Data Provided for This Section Vital Signs Vital Sign Value Date Comments Source Systolic (mm Hg) 124 06/22/2019 [facility] Diastolic (mm Hg) 63 06/22/2019 [facility] Heart Rate 65 06/22/2019 [facility] Respitory Rate 18 06/22/2019 [facility] Temperature Oral (F) 98.6 F 06/22/2019 [facility] Height 178.31 cm 06/22/2019 [facility] Weight 97.983 06/22/2019 [facility] BMI Calculated 30.82 06/22/2019 [facility] Systolic (mm Hg) 111 04/20/2019 [facility] Diastolic (mm Hg) 55 04/20/2019 [facility] Heart Rate 60 04/20/2019 [facility] Respitory Rate 18 04/20/2019 [facility] Temperature Oral (F) 98.3 F 04/20/2019 [facility] Height 178.05 cm 04/20/2019 [facility] Weight 95.085 04/20/2019 [facility] BMI Calculated 29.99 04/20/2019 [facility] Systolic (mm Hg) 114 04/08/2019 [facility] Diastolic (mm Hg) 74 04/08/2019 [facility] Heart Rate 70 04/08/2019 [facility] Respitory Rate 18 04/08/2019 [facility] Temperature Oral (F) 98.7 F 04/08/2019 [facility] Height 170.18 cm 04/08/2019 [facility] Weight 98.693 04/08/2019 [facility] BMI Calculated 34.08 04/08/2019 [facility] Respitory Rate 20 03/27/2019 [facility] Systolic (mm Hg) 118 03/27/2019 [facility] Diastolic (mm Hg) 58 03/27/2019 [facility] Respitory Rate 26 03/27/2019 [facility] Systolic (mm Hg) 102 03/27/2019 [facility] Diastolic (mm Hg) 54 03/27/2019 [facility] Respitory Rate 19 03/27/2019 [facility] Systolic (mm Hg) 104 03/27/2019 [facility] Diastolic (mm Hg) 54 03/27/2019 [facility] Height 177.8 cm 03/27/2019 [facility] Height 177.8 cm 03/26/2019 [facility] Temperature Oral (F) 96.5 F 03/26/2019 [facility] Temperature Oral (F) 97.4 F 03/26/2019 [facility] Temperature Oral (F) 97.8 F 03/25/2019 [facility] Height 177.8 cm 03/25/2019 [facility] Heart Rate 84 03/16/2019 [facility] Heart Rate 62 03/16/2019 [facility] Heart Rate 66 03/16/2019 [facility] BMI Calculated 31.92 03/16/2019 [facility] Weight 100.909 03/16/2019 [facility] Respitory Rate 33 03/14/2019 [facility] Systolic (mm Hg) 97 03/14/2019 [facility] Diastolic (mm Hg) 53 03/14/2019 [facility] Respitory Rate 33 03/14/2019 [facility] Systolic (mm Hg) 109 03/14/2019 [facility] Diastolic (mm Hg) 57 03/14/2019 [facility] Systolic (mm Hg) 117 03/14/2019 [facility] Diastolic (mm Hg) 77 03/14/2019 [facility] Respitory Rate 25 03/14/2019 [facility] Temperature Oral (F) 98.3 F 03/14/2019 [facility] Temperature Oral (F) 98.3 F 03/14/2019 [facility] Temperature Oral (F) 98.3 F 03/14/2019 [facility] Height 182.88 cm 03/14/2019 [facility] Height 182.88 cm 03/05/2019 [facility] Weight 104.682 03/05/2019 [facility] BMI Calculated 31.3 03/05/2019 [facility] Systolic (mm Hg) 105 02/09/2019 [facility] Diastolic (mm Hg) 65 02/09/2019 [facility] Heart Rate 76 02/09/2019 [facility] Respitory Rate 16 02/09/2019 [facility] Temperature Oral (F) 98.2 F 02/09/2019 [facility] Height 170.94 cm 02/09/2019 [facility] Weight 102.926 02/09/2019 [facility] BMI Calculated 35.22 02/09/2019 [facility] Systolic (mm Hg) 134 06/16/2018 [facility] Diastolic (mm Hg) 85 06/16/2018 [facility] Heart Rate 65 06/16/2018 [facility] Respitory Rate 16 06/16/2018 [facility] Temperature Oral (F) 97.3 F 06/16/2018 [facility] Height 171.45 cm 06/16/2018 [facility] Weight 101.818 06/16/2018 [facility] BMI Calculated 34.64 06/16/2018 [facility] Weight 103.807 01/07/2018 [facility] BMI Calculated 35.31 01/07/2018 [facility] Height 171.45 cm 01/07/2018 [facility] Respitory Rate 18 01/07/2018 [facility] Temperature Oral (F) 97.3 F 01/07/2018 [facility] Heart Rate 97 01/07/2018 [facility] Systolic (mm Hg) 133 01/07/2018 [facility] Diastolic (mm Hg) 84 01/07/2018 [facility] Weight 104.29 09/10/2017 [facility] BMI Calculated 34.35 09/10/2017 [facility] Height 174.24 cm 09/10/2017 [facility] Heart Rate 79 09/10/2017 [facility] Respitory Rate 18 09/10/2017 [facility] Temperature Oral (F) 98.1 F 09/10/2017 [facility] Systolic (mm Hg) 135 09/10/2017 [facility] Diastolic (mm Hg) 75 09/10/2017 [facility] Systolic (mm Hg) 134 05/24/2017 [facility] Diastolic (mm Hg) 68 05/24/2017 [facility] Respitory Rate 20 05/24/2017 [facility] Respitory Rate 19 05/24/2017 [facility] Systolic (mm Hg) 147 05/24/2017 [facility] Diastolic (mm Hg) 72 05/24/2017 [facility] Systolic (mm Hg) 151 05/24/2017 [facility] Diastolic (mm Hg) 73 05/24/2017 [facility] Respitory Rate 20 05/24/2017 [facility] Height 182.88 cm 05/24/2017 [facility] BMI Calculated 31.26 05/24/2017 [facility] Weight 104.545 05/24/2017 [facility] Systolic (mm Hg) 165 04/27/2017 [facility] Diastolic (mm Hg) 81 04/27/2017 [facility] Systolic (mm Hg) 165 04/27/2017 [facility] Diastolic (mm Hg) 81 04/27/2017 [facility] Systolic (mm Hg) 176 04/27/2017 [facility] Diastolic (mm Hg) 81 04/27/2017 [facility] Temperature Oral (F) 98.0 F 04/26/2017 [facility] BMI Calculated 31.26 04/26/2017 [facility] Weight 104.545 04/26/2017 [facility] Height 182.88 cm 04/26/2017 [facility] Temperature Oral (F) 98.1 F 04/26/2017 [facility] Height 182.88 cm 04/22/2017 [facility] BMI Calculated 30.58 04/22/2017 [facility] Weight 102.273 04/22/2017 [facility] Weight 102.273 04/19/2017 [facility] BMI Calculated 30.58 04/19/2017 [facility] Height 182.88 cm 04/19/2017 [facility] Weight 105.966 04/15/2017 [facility] Height 172.72 cm 04/15/2017 [facility] Heart Rate 84 04/15/2017 [facility] BMI Calculated 35.52 04/15/2017 [facility] Temperature Oral (F) 97.8 F 04/15/2017 [facility] Respitory Rate 18 04/15/2017 [facility] Systolic (mm Hg) 151 04/15/2017 [facility] Diastolic (mm Hg) 103 04/15/2017 [facility] Height 182.88 cm 11/28/2015 [facility] BMI Calculated 30.78 11/28/2015 [facility] Weight 102.955 11/28/2015 [facility] Temperature Oral (F) 97.4 F 11/28/2015 [facility] Respitory Rate 18 11/28/2015 [facility] Heart Rate 88 11/28/2015 [facility] Systolic (mm Hg) 127 11/28/2015 [facility] Diastolic (mm Hg) 72 11/28/2015 [facility] Weight 103.665 08/29/2015 [facility] Temperature Oral (F) 97.1 F 08/29/2015 [facility] Respitory Rate 16 08/29/2015 [facility] Heart Rate 92 08/29/2015 [facility] Height 182.88 cm 08/29/2015 [facility] BMI Calculated 31 08/29/2015 [facility] Systolic (mm Hg) 116 08/29/2015 [facility] Diastolic (mm Hg) 60 08/29/2015 [facility] Temperature Oral (F) 97.8 F 08/16/2015 [facility] Heart Rate 105 08/16/2015 [facility] Respitory Rate 16 08/16/2015 [facility] Systolic (mm Hg) 124 08/16/2015 [facility] Diastolic (mm Hg) 62 08/16/2015 [facility] Weight 104.261 08/16/2015 [facility] Height 182.88 cm 08/16/2015 [facility] BMI Calculated 31.17 08/16/2015 [facility] Temperature Oral (F) 98.2 F 08/11/2015 [facility] Systolic (mm Hg) 139 08/11/2015 [facility] Diastolic (mm Hg) 68 08/11/2015 [facility] Systolic (mm Hg) 140 08/11/2015 [facility] Diastolic (mm Hg) 87 08/11/2015 [facility] Systolic (mm Hg) 138 08/11/2015 [facility] Diastolic (mm Hg) 83 08/11/2015 [facility] BMI Calculated 31.39 08/10/2015 [facility] Weight 105 08/10/2015 [facility] Height 182.88 cm 08/10/2015 [facility] BMI Calculated 31.2 07/26/2015 [facility] Weight 104.347 07/26/2015 [facility] Height 182.88 cm 07/26/2015 [facility] Heart Rate 89 07/26/2015 [facility] Respitory Rate 16 07/26/2015 [facility] Temperature Oral (F) 97.3 F 07/26/2015 [facility] Systolic (mm Hg) 129 07/26/2015 [facility] Diastolic (mm Hg) 74 07/26/2015 [facility] Weight 105 07/08/2015 [facility] BMI Calculated 31.39 07/08/2015 [facility] Height 182.88 cm 07/08/2015 [facility] Systolic (mm Hg) 133 07/08/2015 [facility] Diastolic (mm Hg) 83 07/08/2015 [facility] Respitory Rate 18 07/08/2015 [facility] Height 182.88 cm 07/04/2015 [facility] Weight 105.199 07/04/2015 [facility] BMI Calculated 31.45 07/04/2015 [facility] Temperature Oral (F) 98.3 F 07/04/2015 [facility] Heart Rate 93 07/04/2015 [facility] Respitory Rate 24 07/04/2015 [facility] Systolic (mm Hg) 152 07/04/2015 [facility] Diastolic (mm Hg) 84 07/04/2015 [facility] Encounters Location Location Details Encounter Type Encounter Number Reason For Visit Attending Provider ADM Date DC Date Status Source [facility] Outpatient [id number] Tom Nova 07/04/2015 07/05/2015 [facility] Bedded Outpatient [id number] Tom Nova 07/08/2015 07/08/2015 [facility] Outpatient [id number] Tom Nova 07/26/2015 07/27/2015 [facility] Bedded Outpatient [id number] Biswajit Avtar 08/10/2015 08/11/2015 [facility] Outpatient [id number] Biswajit Avtar 08/16/2015 08/17/2015 [facility] Outpatient [id number] Biswajit Avtar 08/18/2015 08/19/2015 [facility] Outpatient [id number] Biswajit Avtar 08/29/2015 08/30/2015 [facility] Outpatient [id number] Biswajit Avtar 09/15/2015 09/16/2015 [facility] Outpatient [id number] Biswajit Avatr 10/28/2015 10/29/2015 [facility] Outpatient [id number] Biswajit Avtar 11/28/2015 11/29/2015 [facility] Phone Message [id number] 07/31/19 17 07/31/2016 [facility] Phone Message [id number] 07/31/19 17 07/31/2016 [facility] Phone Message [id number] 10/05/19 17 10/06/2016 [facility] Outpatient [id number] Bushrawajinela Avtar 04/15/2017 04/16/2017 [facility] Outpatient [id number] Biswajit Avtar 04/22/2017 04/23/2017 [facility] Phone Message [id number] 04/22/20 17 04/24/2017 [facility] Phone Message [id number] 04/22/20 17 04/24/2017 [facility]patient [id number] Bushrawajit Avtar 04/26/2017 04/27/2017 [facility] Phone Message [id number] 05/17/20 17 05/19/2017 [facility] Outpatient [id number] Biswajit Avtar 05/24/2017 05/24/2017 [facility] Outpatient [id number] Biswajit Avtar 09/10/2017 09/11/2017 [facility] [id number] Kim Zhang 09/10/2017 09/11/2017 [facility] Outpatient [id number] Biswajit Avtar 01/07/2018 01/08/2018 [facility] Outpatient [id number] Biswajit Avtar 06/16/2018 06/17/2018 [facility] Outpatient [id number] Biswajit Avtar 02/09/2019 02/10/2019 [facility] Inpatient [id number] Biswajit Avtar 03/05/2019 03/14/2019 [facility] Inpatient [id number] Non Physician 03/16/2019 03/28/2019 [facility] Outpatient [id number] Denia Philippe 04/08/2019 04/09/2019 [facility] [place] [facility] [id number] Denia Philippe 04/13/2019 04/14/2019 [facility] Outpatient [id number] Julio Cesar Padilla 04/20/2019 04/21/2019 [facility] Phone Message [id number] 04/30/2019 05/01/2019 [facility] Outpatient Imaging - [place] [facility] Services [id number] Willa Kt 06/13/2019 06/14/2019 [facility] Outpatient [id number] Biswajit Avtar 06/22/2019 06/23/2019 [facility] Procedures Procedure Code Date Perfomer Comments Source Permanent cardiac pacemaker procedure [id number] 03/16/2019 [facility], DAVINA Motta ,[facility] TAVR - Transcatheter aortic valve replacement [id number] 03/11/2019 [facility], O PID [place] - Carotid endarterectomy<sup>1</sup> [id number] Left [facility], DAVINA Lau, SPENCER [place],[facility] Nephrectomy [id number] [facility] Sid,[facility] Placement of stent in anterior descendin g branch of left coronary artery [id number] [facility], O TORIN Lau, SPENCER [place],[facility] Assessment and Plan Assessment and Plan Date Source Extracted from:Title: [facility] IMU Progre ss Note * Author: Lucille Figueroa VETERINARY EPIDEMIOLOGIST Date: 03/27/19 Basic Information [place] Pulmonary Critical Care Medicine Progress Note Chief [...] to LAD and LCx that presented to [facility] after a syncope episode s/p mechanical fall [...] on a cardene drip and transferred to [facility] for HLOC. On arrival, repeat CT [...] Foot Pain Health Status Allergies: Allergies (1) Active Reaction No Known Medication Allergies None Documented Current medications: Medications (13) Active Scheduled: [...] mg rect SUPP 10 mg 1 supp, [place], Daily hydrALAZINE 20 mg/1 ml VL 10 mg 0.5 mL, IV, Q6H OLANZapine 10 mg INJ 7.5 mg, IM, BID Physical Examination Vitals Tmp(F) Pulse BP RR SpO2 FIO2 03/27 10:00 ---- 65 115/52 2 0 98 --- 03/27 08:48 ---- --- ----- - - 98 2.0L/m 03/27 08:00 ---- 88 122/67 2 6 99 --- 03/27 07:50 95.6 --- ----- - - --- --- 03/27 06:00 ---- 84 140/72 2 0 98 --- 24 Hr Tmax: 98.5F (36.94c) at 03/26 20:1 0 Vital Signs are the last 5 in the past 48 hours. I&O Record In Out Bal 03/27 24hr Tot 240 0 240 03/26 24hr Tot 556 150 406 VS/Measurements Measurements from [...] Signs (last 24 hrs) Last Charted Temp Axillary 95.6 DegF (MAR 27 07:50) Heart Rate Apical 65 bpm (MAR 27 10:00) Resp Rate 20 BRMIN (MAR 27 10:00) SBP 115 mmHg (MAR 27 10:00) DBP L 52mmHg (MAR 27 10:) Height 177.8 cm (MAR 27 03:53) Gen: AAOx3; NAD. [...] review: Labs (Last four charted values) WBC 9.3 (MAR 27) 9.4 (MAR 26) 9.0 (MAR 25) 9.8 (MAR 24) Hgb L 10.8 (NOV 08) L 10.5 (MAR 26) L 11.4 (MAR 25) L 11.4 (MAR 05) Hct L 32.9 (MAR 08) L 30.4 (MAR 07) L 34.0 (MAR 25) L 34.0 (MAR 05) Plt 239 (MAR 08) 256 (MAR 07) 237 (MAR 25) 240 (MAR 05) Na 135 (MAR 08) 139 (MAR 07) 140 (MAR 25) 140 (MAR 24) K 5.0 (MAR 08) 4.8 (MAR 26) 4.7 (MAR 25) 4.7 (MAR 05) CO2 32 (MAR 08) H 33 (MAR 26) 32 (MAR 25) 32 (MAR 24) Cl 103 (MAR 27) 104 (MAR 26) 104 (MAR 25) 104 (MAR 24) Cr 1.12 (MAR 27) 1.08 (MAR 26) 1.09 (MAR 25) 1.16 (MAR 24) BUN H 23 (MAR 27) H 27 (MAR 26) H 28 (MAR 25) H 31 (MAR 24) Glucose Random H 117 (MAR 27) H 118 (MAR 26) H 132 (MAR 25) H 140 (MAR 24) Mg 2.4 (MAR 27) H 2.5 (MAR 26) H 2.5 (MAR 25) H 3.0 (MAR 24) Phos 3.8 (MAR 27) 3.2 (MAR 26) 3.1 (MAR 25) 3.3 (MAR 24) Ca 9.0 (MAR 27) 9.0 (MAR 26) 9.3 (MAR 25) 9.4 (MAR 24) PT 13.4 (MAR 16) INR 1.04 (MAR 16) PTT 24.6 (MAR 16) Troponin 0.08 (MAR 16) . Radiology results Reviewed radiologist's report chest xray [...] to 60%) - CAD s/p PCI x2 (2016) - Vitamin B12 deficiency Recommendations: - O2 [...] Discussed with Dr Boyer. Lucille Figueroa DNP [facility] #[id number] Addendum by Arnoldo Boyer MD on 03/27/2019 23:04 I have seen and examined the patient with Lucille Figueroa NP on 03/27/19. I agree with her assessment and plan as documented. REVIEW OF SYSTEMS: Constit: Denies Fever Night sweats HEENT: Denies Headaches Dysphagia Pulm: per Events CV: per Events GI: Denies Abd pain Nausea Vomiting : Denies Hematuria Dysuria MS: Denies Myalgias Fall Neuro: Denies Numbness/Tingling Syncope Skin: Denies New rashes Hemo/Lymph: Denies Jaundice Bleeding Arnoldo Boyer M.D. Pulmonary Critical Care Faculty MSO # [id number] Pager # [phone] Extracted from:Title: EP Consultation Note Author: Og Jackson MD Date: 03/17/19 History of Present Illness 89 [...] and patient was immediately taken to the powerhouse laborer for PPM. 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 Renal cell carcinoma ([id number]): Resolved. CAD (coronary atherosclerotic disease) ([id number]): Resolved. Carotid artery stenosis ([id number]): Resolved. Family History: Breast cancer Mother Heart disease Father Procedure history: Permanent cardiac pacemaker procedure ([id number]) on 03/16/2019 at 89 Years. TAVR - Transcatheter aortic valve replacement ([id number]) on 03/11/2019 at 89 Years. CEA - Carotid endarterectomy ([id number]). Comments: 07/04/2015 14:01 - Cristóbal Baker DO Left Placement of stent in anterior descending branch of left coronary artery ([id number]). Nephrectomy ([id number]). Social History Social and Psychosocial Habits Alcohol 03/05/2019 Use: Past Tobacco [...] Signs (last 24 hrs) Last Charted Temp Axillary 97.1 DegF (MAR 17 04:00) Heart Rate Apical H 108bpm (MAR 17:) Resp Rate H 32BRMIN (MAR 17:) SBP H 170mmHg (MAR 17:) DBP 79 mmHg (MAR 17 08:) Weight 100.90 kg (MAR 16 14:59) Height 177.8 cm (MAR 16 14:59) BMI 31.92 (MAR 16 14:59) PHYSICAL EXAM General Appearance: No acute distress [...] review: Labs (Last four charted values) WBC 8.5 (MAR 17) 9.3 (MAR 16) Hgb L 12.0 (MAR 17) L 11.6 (MAR 16) Hct L 35.4 (MAR 17) L 35.4 (MAR 16) Plt 146 (MAR 17) 153 (MAR 16) Na 141 (MAR 17) 139 (MAR 16) K 4.5 (MAR 17) 4.2 (MAR 16) CO2 27 (MAR 17) 28 (MAR 16) Cl 107 (MAR 17) 104 (MAR 16) Cr 1.23 (MAR 17) H 1.53 (MAR 16) BUN H 34 (MAR 17) H 45 (MAR 16) Glucose Random H 164 (MAR 17) H 133 (MAR 16) Mg 2.4 (MAR 17) Phos 2.7 (MAR 17) Ca 8.7 (MAR 17) 9.4 (MAR 16) PT 13.4 (MAR 16) INR 1.04 (MAR 16) PTT 24.6 (MAR 16) Troponin 0.08 (MAR 16) . Impression and Plan 89 yo male with [...] and patient was immediately taken to the powerhouse laborer for PPM. Patient is now s/p Dual [...] the consult. Patient was discussed with Dr. Perez Addendum by Tyson Perez MD on 03/19/2019 17:58 Pt seen and examined emergently on Mar 17 2019. S/p PPM placement and findings and plan as per Dr. Jackson. Extracted from:Title: AHF H and P Author: Denia Beck MD Date: 03/16/19 Impression and Plan 89 yo male [...] EP consulted and patient taken to the powerhouse laborer for PPM. Of note, metoprolol recently increased as well. High degree AVB - in setting of dizziness complicated by fall - EP consulted, PPM today - will follow up EP procedure note SDH - Noncompressive right parafalcine subdu ral hematoma noted on CTH which was stable on repeat imaging. - neurosurgery consulted: [facility] at [facility], repeat CTH stable. 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 RCA is occluded with ostial 80% stenosis and then proximal stenosis followed by occlusion, collaterals seen form distal LAD and septal branches to PDA. No further intervention as RCA with known STRING WINDING MACHINE OPERATOR - on ASA, plavix - restart in [...] plan of care with team and patient. 03/28/2019 [facility] Extracted from:Title: Consultation Author: Bk Beltre MD Date: 03/13/19 1.Renal cell carcinoma of left kidney(C64.2) 2.Neoplasm of uncertain behavior of right [...] possible outcome, and the possible complications. Extracted from:Title: AHF Progress Note Author: Lillie Vidal Date: 03/13/19 Impression and Plan The patient was seen and examined by me with the resident/VETERINARY EPIDEMIOLOGIST/PA and I agree with the History/Exam documented. [...] diuretics for 2 days prior to admission. RHC 03/07/19 mildly elevated filling pressures. 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 RCA is occluded with ostial 80% stenosis and then proximal stenosis followed by occlusion, collaterals seen form distal LAD and septal branches to PDA. No further intervention as RCA with known STRING WINDING MACHINE OPERATOR - Continue ASA, plavix, BB, statin #Hypertension [...] with home health PT/OT/Home oxygen/rolling walker Extracted from:Title: HF Surgery Author: Ramirez Valenzuela MD Date: 03/11/19 ADVANCED HEART FAILURE/CV SURGERY BRIEF OP NOTE Preop Diagnosis: Severe symptomatic , CAD with s/p PCI, ICMP, s/p nephrectomy, obese, HTN, hypoxia Postop Diagnosis: same Procedures: Trans-catheter Aortic Valve Replacement via right transfemoral access - 29mm Levy Pericardial Tissue Heart Valve Metallurgical Laboratory Assistant: Tom Nova MD Surgeon: Alek Campuzano MD Surgical Fellow: Ramirez Valenzuela MD Anesthesiologist: Dr Lugo Anesthesia: MAC Antibiotics: Ancef 2gr@07:39 Case start time: 08:20 IVF: 1000 ml crystalloids EBL: <5 ml Transfusions: None Urine Output: N/A Complications: none Dictation #: [id number] Disposition: HVI ICU in stable condition Extracted from:Title: AHF History and Physical Author: Herbert Mcpherson MD Date: 03/05/19 89 yo male with [...] ischemic heart disease. 1.Acute exacerbation of CHF (congestive heart failure)(I50.9) 2.Shortness of breath(R06.02) 3.Hypoxia(R09.02) 4.CAD [...] MD Fellow, Department of Cardiovascular Disease [employer] [facility] [employer] Addendum by Herbert Mcpherson MD on 03/07/2019 06:27 CDT Cardiology Attending Attestation I have seen and examined the patient with Dr. Buitrago 03/05/2019 I have reviewed all the clinical information, lab investigations and imaging data. I agree with the above examination findings, assessment, and plan. I was present and supervised. 03/14/2019 [facility] Plan of Care No Data Provided for This Section Social History Social History Date Source Social History TypeResponse Alcohol Past Smoking Status Current every day smoker; Type: Chewing tobacco; Previous treatment: None; Concerns about tobacco use in household: No; Exposure to Tobacco Smoke None; Cigarette Smoking Last 365 Days No; Reg Smoking Cessation Counseling No; Stopped at age: 25; entered on: 04/20/19 03/05/2019 [facility] Heart Failure Social History TypeResponse Alcohol Past Smoking Status Current every day smoker; Type: Chewing tobacco; Previous treatment: None; Concerns about tobacco use in household: No; Exposure to Tobacco Smoke None; Cigarette Smoking Last 365 Days No; Reg Smoking Cessation Counseling No; Stopped at age: 25; entered on: 06/22/19 03/05/2019 [facility] Social History TypeResponse Alcohol Past Smoking Status Current every day smoker; Type: Chewing tobacco; Previous treatment: None; Concerns about tobacco use in household: No; Exposure to Tobacco Smoke None; Cigarette Smoking Last 365 Days No; Reg Smoking Cessation Counseling No; Stopped at age: 25; entered on: 04/20/19 03/05/2019 DAVINA Motta Social History TypeResponse Alcohol Past Smoking Status Current every day smoker; Type: Chewing tobacco; Previous treatment: None; Concerns about tobacco use in household: No; Exposure to Tobacco Smoke None; Cigarette Smoking Last 365 Days No; Reg Smoking Cessation Counseling No; Stopped at age: 25; entered on: 04/08/19 03/05/2019 MARISOL Chappell Social History TypeResponse Smoking Status Former smoker; Type: Cigarettes; Previous treatment: None; Concerns about tobacco use in household: No; Exposure to Tobacco Smoke None; Cigarette Smoking Last 365 Days No; Reg Smoking Cessation Counseling No; Stopped at age: 25; entered on: 09/10/17 09/10/2017 MARISOL Lau Family History No Data Provided for This Section Advance Directives No Data Provided for This Section Functional Status No Data Provided for This Section
--- OUTSIDE RECORDS SUMMARY | 2019-09-28 21:32 | XMS REPORT | Summary of Care ---
Author Author [facility] - [facility] Organization [facility] Address Unknown Phone Unavailable Encounter HQ Kayley(FIN) [id number] Date(s): 06/13/19 - 06/13/19 [facility] Outpatient Imaging [facility] [address] [place], [place] [address] [phone] Discharge Disposition: Home or Self Care Attending Physician: Willa Meraz MD Referring Physician: Willa Meraz MD Vital Signs No data available for [...]
--- OUTSIDE RECORDS SUMMARY | 2019-09-28 21:32 | XMS REPORT | Summary of Care ---
Author Author [facility] Organization [facility] Address Unknown Phone Unavailable Encounter HQ Kayley(OFELIA) [id number] Date(s): 05/17/17 - 05/18/17 [facility] [address], [address] [place], [place] [address] Vital Signs No data [...]
--- OUTSIDE RECORDS SUMMARY | 2019-09-28 21:32 | XMS REPORT | Summary of Care ---
Author Author [facility] Organization [facility] Address Unknown Phone Unavailable Encounter SHAYY Zaldivar(OFELIA) [id number] Date(s): 02/09/19 - 02/09/19 [facility] [address], [address] Discharge Disposition: Home or Self Care Attending Physician: Tom Nova MD Referring Physician: Tom Nova MD Vital Signs Most recent to 1 oldest [Reference Range]: Height 170.94 cm (02/09/19 2:12 PM) Temperature Oral 98.2 DegF [96.4-99.1 DegF] (02/09/19 2:12 PM) Blood Pressure 105/65 mmHg [90-140/60-90 mmHg] (02/09/19 2:12 PM) Respiratory Rate 16 BRMIN [14-20 BRMIN] (02/09/19 2:12 PM) Peripheral Pulse 76 bpm Rate [60-100 bpm] (02/09/19 2:12 PM) Weight 102.926 kg (02/09/19 2:12 PM) Body Mass Index 35.22 m2 (02/09/19 2:12 PM) Problem List Condition Effective Dates Status [...] No; Stopped at age: 25; entered on: 02/09/19 Assessment and Plan No data available for this section
--- OUTSIDE RECORDS SUMMARY | 2019-09-28 21:32 | XMS REPORT | Summary of Care ---
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) - Discharge Disposition: Home or Self [...] Reactions, Alerts No Known Medication Allergies Medications atorvastatin 40 mg oral tablet 40 mg = 1 tab, PO, Bedtime, # 90 tab, 3 Refill(s), [facility] Start Date: 12/02/18 Status: Ordered Lasix 20 mg oral tablet See Instructions, 2 tab PO QAM and 1 tab PO QPM, # 270 tab, 3 Refill(s), [facility] Start [facility]: 06/16/18 Status: Ordered metoprolol 25 mg oral tablet, extended release 25 mg = 1 tab, PO, Daily, # 90 tab, 3 Refill(s), [facility] Start [facility]: 12/02/18 Status: Ordered Plavix 75 mg oral tablet 75 mg = 1 tab, PO, Daily, # 90 tab, 3 Refill(s), [facility] Start Date: 12/02/18 Status: Ordered Rapaflo 8 mg oral capsule 8 mg = 1 cap, PO, Daily, # 90 tab, 2 Refill(s), Pharmacy: [facility] Start Date: 06/16/18 Status: Ordered Results [...]
--- OUTSIDE RECORDS SUMMARY | 2019-09-28 21:32 | XMS REPORT | Summary of Care ---
Author Author [facility] Organization [facility] Address Unknown Phone Unavailable Encounter SHAYY Zaldivar(OFELIA) [id number] Date(s): 07/04/15 - 07/04/15 [facility] [address] [address] [facility], [address] Final: Essential (primary) hypertension Final: Shortness of breath Final: Atherosclerotic heart disease of lime coronary artery without angina pe ctoris Discharge Disposition: Home Attending Physician: Tom Nova MD Referring Physician: Tom Nova MD Vital Signs Most recent to 1 oldest [Reference Range]: Height 182.88 cm (07/04/15 2:14 PM) Temperature Oral 98.3 DegF [96.4-99.1 DegF] (07/04/15 2:14 PM) Blood Pressure 152/84 mmHg [90-140/60-90 mmHg] *HI* (07/04/15 2:14 PM) Respiratory Rate 24 BRMIN [14-20 BRMIN] *HI* (07/04/15 2:14 PM) Peripheral Pulse 93 bpm Rate [60-100 bpm] (07/04/15 2:14 PM) Weight 105.199 kg (07/04/15 2:14 PM) Body Mass Index 31.45 m2 (07/04/15 2:14 PM) Problem List Condition Effective Dates Status Health Status Informan t 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) Allergies, Adverse Reactions, Alerts Substance Reaction Severity Status NKDA Active Medications amLODIPine 10 mg oral tablet 10 mg = 1 tab, PO, Daily, # 30 tab, 0 Refill(s) Start Date: 07/04/15 Status: Ordered Aspirin Enteric Coated 81 mg oral delayed release tablet 81 mg = 1 tab, PO, Daily, 0 Refill(s) Start Date: 07/04/15 Status: Ordered atorvastatin 40 mg oral tablet 40 mg = 1 tab, PO, Bedtime, # 30 tab, 0 Refill(s) Start Date: 07/04/15 Status: Ordered Claritin 10 mg = 1 tab, PO, Daily, PRN Itching / rash / allergy symptoms, # 14 tab, 0 Ref ill(s) Start Date: 07/04/15 Stop Date: 07/18/15 Status: Ordered metoprolol 25 mg oral tablet, extended release 25 mg = 1 tab, PO, Daily, # 30 tab, 0 Refill(s) Start Date: 07/04/15 Status: Ordered Plavix 75 mg oral tablet 75 mg = 1 tab, PO, Daily, # 30 tab, 0 Refill(s) Start Date: 07/04/15 Status: Ordered Rapaflo 8 mg oral capsule 8 mg = 1 cap, PO, Daily, 0 Refill(s) Start Date: 07/04/15 Status: Ordered Results No data available for this section Immunizations No data available for this section Procedures Procedure Date Related Diagnosis Body Site CEA - Carotid endarterectomy1 Nephrectomy Placement of stent in anterior descendi ng branch of left coronary artery 1Left Social History Social History Type Response Smoking Status Former smoker; Exposure to Tobacco Smoke None; Other Tobacco Frequency Smoked a few months at a time when he w as younger. No current smoking; Cigarette Smoking Last 365 Days No; Reg Smoking Cessation Counseling Yes Assessment and Plan No data available for this section
--- OUTSIDE RECORDS SUMMARY | 2019-09-28 21:33 | XMS REPORT | Summary of Care ---
Author Author [facility] Organization [facility] Address Unknown Phone Unavailable Encounter HQ Kayley(OFELIA) [id number] Date(s): 08/18/15 - 08/18/[address] Discharge Disposition: Home Attending Physician: Tom Nova MD Referring Physician: Tom Nova MD Vital Signs No data available for [...] treatment: None; Concerns about tobacco use in [facility] sehold: No; Exposure to Tobacco Smoke None; Cigarette Smoking Last 365 Days No; Reg Smoking Cessation Counseling No Assessment and Plan No data available for this section
--- OUTSIDE RECORDS SUMMARY | 2019-09-28 21:33 | XMS REPORT | Summary of Care ---
Author Author [facility] Organization [facility] Address Unknown Phone Unavailable Encounter HQ Kayley(FIN) [id number] Date(s): 07/30/16 - 07/30/16 [facility] [address] [facility], [address] [place] [address]- Discharge Disposition: Home or Self Care Vital Signs No data available for this section Problem List Condition Effective Dates Status Health Status Informan t 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) Allergies, Adverse Reactions, Alerts Substance Reaction Severity Status NKDA Active Medications Lasix 40 mg oral tablet 40 mg = 1 tab, PO, Daily, # 90 tab, 3 Refill(s), Pharmacy: [facility] [id number] Start Date: 07/30/16 Stop Date: 07/25/17 Status: Ordered Results No data available for [...] treatment: None; Concerns about tobacco use in [facility] sehold: No; Exposure to Tobacco Smoke None; Cigarette Smoking Last 365 Days No; Reg Smoking Cessation Counseling No Assessment and Plan No data available for this section
--- OUTSIDE RECORDS SUMMARY | 2019-09-28 21:33 | XMS REPORT | Summary of Care ---
Author Author [facility] Organization [facility] Address Unknown Phone Unavailable Encounter SHAYY Zaldivar(OFELIA) [id number] Date(s): 08/10/15 - 08/11/15 [facility] [address] [facility] [place] [address]- Discharge Disposition: Home Attending Physician: Tom Nova MD Admitting Physician: Tom Nova MD Referring Physician: Tom Nova MD Vital Signs 1 2 3 Most recent to oldest [Reference Range]: 182.88 cm (08/10/15 10:08 AM) Height 98.2 DegF (08/11/15 9:30 AM) Temperature Oral [96.4-99.1 DegF] 139/68 mmHg (08/11/15 9:30 AM) 140/87 mmHg (08/11/15 5:00 AM) 138/83 mmHg (08/11/15 3:00 AM) Blood Pressure [90-140/60-90 mmHg] 105 kg (08/10/15 10:08 AM) Weight 31.39 m2 (08/10/15 10:08 AM) Body Mass Index Problem List Condition Effective Dates Status Health Status Informan t 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) Allergies, Adverse Reactions, Alerts Substance Reaction Severity Status NKDA Active Medications amLODIPine 10 mg, 1 tab, Route: PO, Drug form: TAB, Daily, Dosing Weight 105, kg, Start betito e: 08/11/15 9:00:00, Duration: 30 day, Stop date: 09/09/15 9:00:00 Notes: (Same as: Garrettc) Start Date: 08/11/15 Stop Date: 08/12/15 Status: Discontinued Aspirin Enteric Coated 81 mg, 1 tab, Route: PO, Drug form: ECTAB, Daily, Dosing Weight 105, kg, Start d ate: 08/11/15 9:00:00, Duration: 30 day, Stop date: 09/09/15 9:00:00 Notes: Do not crush or chew.(Same As: Ecotrin) Start Date: 08/11/15 Stop Date: 08/12/15 Status: Discontinued atorvastatin 40 mg, 1 tab, Route: PO, Drug form: TAB, Bedtime, Dosing Weight 105, kg, Start d ate: 08/10/15 21:00:00, Duration: 30 day, Stop date: 09/08/15 21:00:00 Notes: (Same as: Lipitor) Start Date: 08/10/15 Stop Date: 08/12/15 Status: Discontinued morphine Sulfate 2 mg, 1 mL, Route: IVP, Drug form: INJ, Q4H, Dosing Weight 105, kg, PRN Pain Sco re 7-10, Start date: 08/10/15 20:38:00, Duration: 30 day, Stop date: 09/09/15 20 :37:00 Notes: (Same as:MORPhine Sulfate) Start Date: 08/10/15 Stop Date: 08/12/15 Status: Discontinued nitroglycerin SL Tab 0.4 mg, 1 tab, Route: SL, Drug form: TAB, Q5Min, Dosing Weight 105, kg, PRN Ches t Pain, Start date: 08/10/15 18:45:00, Duration: 3 doses or times, Stop date: Mer maher # of times Notes: (Same as:Nitroquick, Nitrostat)"Do Not Crush" Sublingual tablet Start Date: 08/10/15 Stop Date: 08/12/15 Status: Discontinued Plavix 75 mg, 1 tab, Route: PO, Drug form: TAB, Daily, Dosing Weight 105, kg, Start betito e: 08/11/15 9:00:00, Duration: 30 day, Stop date: 09/09/15 9:00:00 Notes: (Same As: Plavix) Start Date: 08/11/15 Stop Date: 08/12/15 Status: Discontinued Sodium Chloride 0.9% IV 750 mL 750 mL, Rate: 75 ml/hr, Infuse over: 10 hr, Route: IV, Dosing Weight 105 kg, Tot al Volume: 750, Start date: 08/10/15 18:45:00, Duration: 10 hr, Stop date: 08/10 4:44:00 Start Date: 08/10/15 Stop Date: 08/11/15 Status: Completed Toprol-XL 25 mg oral tablet, extended release 25 mg, 1 tab, Route: PO, Drug form: ERTAB, Daily, Start date: 08/11/15 9:00:00, Duration: 30 day, Stop date: 09/09/15 9:00:00 Notes: (Same as: Toprol XL) Do Not Crush Start Date: 08/11/15 Stop Date: 08/12/15 Status: Discontinued Results BLOOD BANK RESULTS 1 2 3 Most recent to oldest [Reference Range]: O POS *Unknown* (08/10/15 10:11 AM) ABO/Rh Negative (08/10/15 10:11 AM) Antibody Scrn ELECTROLYTES 1 2 3 Most recent to oldest [Reference Range]: 139 mEq/L (08/11/15 4:43 AM) 140 mEq/L (08/10/15 10:11 AM) Sodium Lvl [135-145 mEq/L] 4.7 mEq/L (08/11/15 4:43 AM) 4.2 mEq/L (08/10/15 10:11 AM) Potassium Lvl [3.5-5.1 mEq/L] 105 mEq/L (08/11/15 4:43 AM) 105 mEq/L (08/10/15 10:11 AM) Chloride Lvl [95-109 mEq/L] 27 mEq/L (08/11/15 4:43 AM) 30 mEq/L (08/10/15 10:11 AM) CO2 [24-32 mEq/L] 11.7 mEq/L (08/11/15 4:43 AM) 9.2 mEq/L *LOW* (08/10/15 10:11 AM) AGAP [10.0-20.0 mEq/L] CHEM PANEL 1 2 3 Most recent to oldest [Reference Range]: 1.07 mg/dL (08/11/15 4:43 AM) 1.28 mg/dL (08/10/15 10:11 AM) Creatinine Lvl [0.50-1.40 mg/dL] 63 mL/min/1.73m2 1 *NA* (08/11/15 4:43 AM) 51 mL/min/1.73m2 2 *NA* (08/10/15 10:11 AM) eGFR 16 mg/dL (08/11/15 4:43 AM) 22 mg/dL (08/10/15 10:11 AM) BUN [7-22 mg/dL] 153 mg/dL *HI* (08/11/15 4:43 AM) 113 mg/dL *HI* (08/10/15 10:11 AM) Glucose Lvl [70-99 mg/dL] 8.8 mg/dL (08/11/15 4:43 AM) 9.1 mg/dL (08/10/15 10:11 AM) Calcium Lvl [8.5-10.5 mg/dL] 1Result Comment: The eGFR is calculated using [...] mul tiplied by the estimated BMI. HEMATOLOGY 1 2 3 Most recent to oldest [Reference Range]: 8.7 K/CMM (08/11/15 4:43 AM) 12.1 K/CMM *HI* (08/10/15 10:15 PM) 7.7 K/CMM (08/10/15 10:11 AM) WBC [3.7-10.4 K/CMM] 4.55 M/CMM *LOW* (08/11/15 4:43 AM) 4.71 M/CMM (08/10/15 10:15 PM) 4.58 M/CMM *LOW* (08/10/15 10:11 AM) RBC [4.70-6.10 M/CMM] 13.4 g/dL *LOW* (08/11/15 4:43 AM) 13.6 g/dL *LOW* (08/10/15 10:15 PM) 13.2 g/dL *LOW* (08/10/15 10:11 AM) Hgb [14.0-18.0 g/dL] 41.2 % *LOW* (08/11/15 4:43 AM) 43.0 % (08/10/15 10:15 PM) 41.6 % *LOW* (08/10/15 10:11 AM) Hct [42.0-54.0 %] 90.5 fL (08/11/15 4:43 AM) 91.3 fL (08/10/15 10:15 PM) 91.0 fL (08/10/15 10:11 AM) MCV [80.0-94.0 fL] 29.5 pg (08/11/15 4:43 AM) 28.9 pg (08/10/15 10:15 PM) 28.9 pg (08/10/15 10:11 AM) MCH [27.0-31.0 pg] 32.6 g/dL (08/11/15 4:43 AM) 31.7 g/dL *LOW* (08/10/15 10:15 PM) 31.7 g/dL *LOW* (08/10/15 10:11 AM) MCHC [32.0-36.0 g/dL] 14.7 % *HI* (08/11/15 4:43 AM) 14.6 % *HI* (08/10/15 10:15 PM) 14.4 % (08/10/15 10:11 AM) RDW [11.5-14.5 %] 200 K/CMM (08/11/15 4:43 AM) 209 K/CMM (08/10/15 10:15 PM) 217 K/CMM (08/10/15 10:11 AM) Platelet [133-450 K/CMM] 7.6 fL (08/11/15 4:43 AM) 7.8 fL (08/10/15 10:15 PM) 7.5 fL (08/10/15 10:11 AM) MPV [7.4-10.4 fL] 76.0 % *HI* (08/11/15 4:43 AM) 83.0 % *HI* (08/10/15 10:15 PM) 55.9 % (08/10/15 10:11 AM) Segs [45.0-75.0 %] 15.0 % *LOW* (08/11/15 4:43 AM) 9.6 % *LOW* (08/10/15 10:15 PM) 31.1 % (08/10/15 10:11 AM) Lymphocytes [20.0-40.0 %] 7.9 % (08/11/15 4:43 AM) 6.2 % (08/10/15 10:15 PM) 8.9 % (08/10/15 10:11 AM) Monocytes [2.0-12.0 %] 0.7 % (08/11/15 4:43 AM) 0.7 % (08/10/15 10:15 PM) 3.6 % (08/10/15 10:11 AM) Eosinophils [0.0-4.0 %] 0.4 % (08/11/15 4:43 AM) 0.5 % (08/10/15 10:15 PM) 0.5 % (08/10/15 10:11 AM) Basophils [0.0-1.0 %] 6.6 K/CMM (08/11/15 4:43 AM) 10.1 K/CMM *HI* (08/10/15 10:15 PM) 4.3 K/CMM (08/10/15 10:11 AM) Segs-Bands # [1.5-8.1 K/CMM] 1.3 K/CMM (08/11/15 4:43 AM) 1.2 K/CMM (08/10/15 10:15 PM) 2.4 K/CMM (08/10/15 10:11 AM) Lymphocytes # [1.0-5.5 K/CMM] 0.7 K/CMM (08/11/15 4:43 AM) 0.8 K/CMM (08/10/15 10:15 PM) 0.7 K/CMM (08/10/15 10:11 AM) Monocytes # [0.0-0.8 K/CMM] 0.1 K/CMM (08/11/15 4:43 AM) 0.1 K/CMM (08/10/15 10:15 PM) 0.3 K/CMM (08/10/15 10:11 AM) Eosinophils # [0.0-0.5 K/CMM] 0.1 K/CMM (08/10/15 10:15 PM) Basophils # [0.0-0.2 K/CMM] 14.8 seconds *HI* (08/10/15 10:11 AM) PT [12.0-14.7 seconds] 1.13 (08/10/15 10:11 AM) INR [0.85-1.17] 216 seconds *NA* (08/10/15 6:33 PM) POC Activated Clotting Time 32.3 seconds (08/10/15 10:11 AM) PTT [22.9-35.8 seconds] Immunizations No data available for this section Procedures Procedure Date Related Diagnosis Body Site CEA - Carotid endarterectomy1 Nephrectomy Placement of stent in anterior descendi ng branch of left coronary artery 1Left Social History Social History Type Response Smoking Status Former smoker; Type: Cigare ttes; Stopped at age: 25; Previous treatment: None; Concerns about tobacco use in [facility] se[place]: No; Exposure to Tobacco Smoke None; Cigarette Smoking Last 365 Days No; Reg Smoking Cessation Counseling No Assessment and Plan No data available for this section
--- OUTSIDE RECORDS SUMMARY | 2019-09-28 21:33 | XMS REPORT | Summary of Care ---
Author Author [facility] Organization [facility] Address Unknown Phone Unavailable Encounter SHAYY Zaldivar(OFELIA) [id number] Date(s): 10/28/15 - 10/28/[address] Discharge Disposition: Home Attending Physician: Tom [...] No data available for this section Results CHEM PANEL Most recent to 1 oldest [Reference Range]: eGFR 45 mL/min/1.73m2 1 *NA* (10/28/15 11:11 AM) POC Creatinine 1.4 mg/dL [0.5-1.4 mg/dL] (10/28/15 11:11 AM) 1Result Comment: The eGFR is calculated [...] treatment: None; Concerns about tobacco use in [place] se[place]: No; Exposure to Tobacco Smoke None; Cigarette Smoking Last 365 Days No; Reg Smoking Cessation Counseling No Assessment and Plan No data available for this section
--- OUTSIDE RECORDS SUMMARY | 2019-09-28 21:33 | XMS REPORT ---
Author Author [facility] t Organization [facility] Address Unknown Phone Unavailable Care Team Providers Care Icu Staff Nurse Name Role Phone NONSTAFF PP Unavailable MIRANDA VEGA M.D. Unavailable Unavailable MIKEL RAI M.D. Unavailable Unavailable CAC, DEVICE Unavailable Unavailable OTTO FARFAN Unavailable Unavailable CHINYERE BAILEY P.A. Unavailable Unavailable George De Unavailable Unavailable Payers Payer Name Policy Type Policy Number Effective Date Expiration D ate [facility] [id number] 1994 00:00:0 0 Problems Condition Name Condition Details Condition Category Status Onset Date Resolution Date Last Treatment Date Treating Clinician Comments Bilateral knee pain Bilateral knee pain Problem Active Chronic kidney disease, unspecified CKD stage Chronic kidney disease, unspecified CKD stage Problem Active History of cardiac arrhythmia History of cardiac arrhythmia Problem Resolved History of congestive heart failure History of congestive heart failure Problem Resolved History of coronary artery disease History of coronary artery di sease Problem Resolved History of hypertension History of hypertension Problem Resolved History of kidney disease History of kidney disease Problem Resolved History of renal cell carcinoma History of renal cell carcinoma Problem Resolved Neck pain Neck pain Problem Active Thoracic spine pain Thoracic spine pain Problem Active History of Compression fracture of C5 vertebra with ro utine healing History of Compression fracture of C5 vertebra with routine healing Problem Resolved Traumatic compression fracture of T4 tho racic vertebra, with routine healing, subsequent encounter Traumatic compression fracture of T4 tho racic vertebra, with routine healing, subsequent encounter Problem Active Allergies, Adverse Reactions, Alerts This patient has no known allergies or adverse reactions. Medications Ordered Medication Name Filled Medication Name Start Date Stop Da te Current Medication? Ordering Clinician Indication Dosage Frequency Signature (SIG) Comments Components Meclizine Hcl 12.5 Mg Tab Meclizine Hcl 12.5 Mg Tab 2019-04-18 00:00: 00 Yes Nilson Tate [employer] Every 6 Hours as needed for D izziness Acetaminophen 325 Mg Tablet Acetaminophen 325 Mg Tablet Yes 325 Every 4 Hours as needed for Mild Pain (1-3) Or Fever>100.8 Aspirin (Aspir 81) 81 Mg Tablet. Aspirin (Aspir 81) 81 Mg Tablet. Yes Daily Atorvastatin Calcium 20 Mg Tablet Atorvastatin Calcium 20 Mg Tablet Yes 40 Bedtime Furosemide (Lasix) 40 Mg Tablet Furosemide (Lasix) 40 Mg Tablet Yes 40 Daily Ipratropium/Albuterol Sulfate (Iprat-Albut 0.5-3(2.5) Mg/3 Ml) 3 Ml Ampul.neb Ipratropium/Albuterol Sulfate (Iprat-Albut 0.5-3(2.5) Mg/3 Ml) 3 Ml Ampul.neb Yes Every 4 Hours as needed for Shor tness Of Breath Loratadine 10 Mg Tablet Loratadine 10 Mg Tablet Yes 10 Daily as needed for Allergy Metoprolol Tartrate 25 Mg Tablet Metoprolol Tartrate 25 Mg Tablet Yes 25 Every 12 Hours as needed for High Blood Pressure Nitroglycerin 0.4 Mg Tab.subl Nitroglycerin 0.4 Mg Tab.subl Yes .4 Every 5 Minutes as needed for Chest Pain Simethicone 80 Mg Chew Simethicone 80 Mg Chew Yes 80 Every 6 Hours as needed for Gas Tamsulosin Hcl (Flomax*) 0.4 Mg Cap Tamsulosin Hcl (Flomax*) 0.4 Mg C ap Yes .4 Daily Furosemide 20 MG Oral Tablet Furosemide 20 MG Oral Tablet Y es 2 TAKE 2 TABLET Every morning Claritin-D 24 Hour TB24 Claritin-D 24 Hour TB24 Yes Atorvastatin Calcium 40 MG Oral Tablet Atorvastatin Calcium 40 M G Oral Tablet Yes TAKE TABLET BEDTIME Aspir-Low 81 MG TBEC Aspir-Low 81 MG TBEC Yes 1 QD TAKE 1 TABLET DAILY. Silodosin 8 MG Oral Capsule Silodosin 8 MG Oral Capsule Yes QD TAKE 1 CAPSULE DAILY WITH FOOD. Metoprolol Succinate ER 25 MG Oral Tablet Extended Rel ease 24 Hour Metoprolol Succinate ER 25 MG Oral Tablet Extended Release 24 Hour Yes 1 QD TAKE 1 TABLET DAILY. Clopidogrel Bisulfate 75 MG Oral Tablet Clopidogrel Bisulfat e 75 MG Oral Tablet Yes 1 QD TAKE 1 TABLET DAILY. Sennosides TABS Sennosides TABS Yes amLODIPine Besylate 10 MG Oral Tablet amLODIPine Besylate 10 MG Ora l Tablet Yes 1 QD TAKE 1 TABLET DAILY. Metoprolol Tartrate 25 MG Oral Tablet Metoprolol Tartrate 25 MG Ora l Tablet Yes Tamsulosin HCl - 0.4 MG Oral Capsule Tamsulosin HCl - 0.4 MG Oral C apsule Yes Atorvastatin Calcium 40 MG Oral Tablet Atorvastatin Calcium 40 M G Oral Tablet Yes Furosemide 40 MG Oral Tablet Furosemide 40 MG Oral Tablet Yes Aspirin 81 MG TABS Aspirin 81 MG TABS Yes Vital Signs Vital Name Observation Time Observation Value Comments Height 2019-06-01 11:39:00 70 [in_us] Weight 2019-06-01 11:39:00 213 [lb_av] BP Systolic 2019-05-06 10:56:00 134 mm[Hg] BP Diastolic 2019-05-06 10:56:00 67 mm[Hg] Height 2019-05-06 10:56:00 70 [in_us] Weight 2019-05-06 10:56:00 213 [lb_av] Heart Rate 2019-05-06 10:56:00 77 /min Height 2019-04-13 11:55:00 70 [in_us] Weight 2019-04-13 11:55:00 220 [lb_av] BP Systolic 2019-03-04 10:29:00 118 mm[Hg] Location: RU E; Position: Sitting BP Diastolic 2019-03-04 10:29:00 67 mm[Hg] Location: RU E; Position: Sitting Height 2019-03-04 10:29:00 72 [in_us] Weight 2019-03-04 10:29:00 228 [lb_av] Temperature 2019-03-04 10:29:00 97 [degF] Method: Temp oral Heart Rate 2019-03-04 10:29:00 79 /min Respiration Rate 2019-03-04 10:29:00 16 /min O2 SAT 2019-03-04 10:29:00 90 % Source: RA Procedures and Interventions Procedure Date / Time Performed Performing Clinici an [QL] RENAL FUNCTION PANEL W/EGFR 2019-09-23 00:00:00 [U] XRAY SPINE CERVICAL 2 OR 3 VWS 60657 2019-06-01 00:00:00 [U] XRAY SPINE THORACIC 2 VWS 88198 2019-06-01 00:00:00 [QLH] URINALYSIS, COMPLETE W/REFLEX TO CULTURE 2019-05-06 00 :00:00 [QH] PROTEIN, TOTAL W/CREAT, RANDOM URINE 2019-05-06 00:00:0 0 [QLH] BASIC METABOLIC PANEL W/EGFR 2019-05-06 00:00:00 Renal 09843 2019-05-06 00:00:00 Computed tomography of brain without radiopaque contrast 201 01-28-29 00:00:00 ALINE SANCHEZ Computed tomography of chest with contrast 2019-04-17 00:00: 00 ALINE SANCHEZ Computed tomography of cervical spine without contrast 04-17 00:00:00 ALINE SANCHEZ [U] XRAY SPINE CERVICAL 2 OR 3 VWS 68102 2019-04-13 00:00:00 [U] XRAY SPINE THORACIC 2 VWS 76136 2019-04-13 00:00:00 [QLH] BASIC METABOLIC PANEL W/EGFR 2019-03-04 00:00:00 [U] XR KNEE 3 VWS BILATERAL 2018-01-06 00:00:00 [U] XR KNEE 3 VWS BILATERAL 2017-09-30 00:00:00 Plan of Care Planned Activity Planned Date Comments Encounters Start Date/Time End Date/Time Encounter Type Admission Type [facility] Care Department Encounter ID 2019-03-05 15:48:00 Inpatient U [facility] [id number] 2019-08-19 11:00:00 2019-08-19 11:00:00 Appointment; CASSIE VEGA M.D. WAGUESPACK, DIA, M.D. [facility] Renal Disease & Hypertension - [facility] [id number] 2019-06-22 09:42:00 2019-06-22 09:42:00 Outpatient [facility] [id number] 2019-06-01 10:45:00 2019-06-01 10:45:00 Appointment; MIKEL RAI M.D. PRASARN, MARK, M.D. [facility] [id number] 2019-05-26 13:30:00 2019-05-26 13:30:00 Appointment; CAC, DEVICE CAC, DEVICE [facility] [id number] 2019-05-06 10:30:00 2019-05-06 10:30:00 Appointment; CASSIE VEGA M.D. WAGUESPACK, DIA, M.D. [facility] Renal Disease & Hypertension [facility] [id number] 2019-04-20 08:39:00 2019-04-20 08:39:00 Outpatient [facility] [id number] 2019-04-17 00:40:00 2019-04-18 12:15:00 Discharged Inpatient (obs) 1 OTTO FARFAN [facility] [id number] 2019-04-13 10:15:00 2019-04-13 10:15:00 Appointment; MIKEL RAI M.D. PRASARN, MARK, M.D. [facility] [id number] 2019-04-08 13:55:00 2019-04-08 13:55:00 Outpatient [facility] [id number] 2019-04-07 14:00:00 2019-04-07 14:00:00 Appointment; CAC, DEVICE CAC, DEVICE [facility] [id number] 2019-03-16 17:03:00 2019-03-16 13:15:00 Inpatient E [facility] [id number] 2019-03-04 09:30:00 2019-03-04 09:30:00 Appointment; CASSIE VEGA M.D. WAGUESPACK, DIA, M.D. [facility] Renal Disease & Hypertension [facility] [id number] 2019-02-09 13:49:00 2019-02-09 13:49:00 Outpatient [facility] [id number] 2018-07-03 13:30:00 2018-07-03 13:30:00 Appointment; MERCEDES BAILEY P.A. HAWKS, CHRISTOPHER, P.A. [facility] [id number] 2018-06-26 13:30:00 2018-06-26 13:30:00 Appointment; HAWKSMERCEDES P.A. HAWKS, CHRISTOPHER, P.A. [facility] [id number] 2018-06-19 14:30:00 2018-06-19 14:30:00 Appointment; MERCEDES BAILEY P.A. HAWKS, CHRISTOPHER, P.A. [facility] [id number] 2018-01-09 13:30:00 2018-01-09 13:30:00 Appointment; MERCEDES BAILEY P.A. HAWKS, CHRISTOPHER, P.A. [facility] Orthopedics [id number] 2017-10-03 10:00:00 2017-10-03 10:00:00 Appointment; MERCEDES BAILEY P.A. HAWKS, CHRISTOPHER, P.A. [facility] Orthopedics [id number] 2017-07-03 12:30:00 2017-07-03 12:30:00 Appointment; MERCEDES BAILEY P.A. HAWKS, CHRISTOPHER, P.A. [facility] [id number] Results Test Description Test Time Test Comments Text Results Atomic Results Result Comments Sodium Level 2019-04-18 05:32:00 Sodium Level (test code = 2951-2) 138 136-145 Potassium Yhixx7583-12-55 05:32:00* Test Item Value Reference Range Comments Potassium Level (test code = 2823-3) 4.3 3.5-5.1 Chloride Iemne2118-02-94 05:32:00* Test Item Value Reference Range Comments Chloride Level (test code = 2075-0) 103 98-107 Carbon Dioxide Zmafc5675-02-55 05:32:00* Test Item Value Reference Range Comments Carbon Dioxide Level (test code = 2028-9) 26 22-29 Anion Imt5792-77-49 05:32:00* Test Item Value Reference Range Comments Anion Gap (test code = 52296-2) 13.3 8-16 Blood Urea Kmeevzxe0436-75-15 05:32:00* Test Item Value Reference Range Comments Blood Urea Nitrogen (test code = 3094-0) 18 7-26 Ksbxwoaedk5491-71-38 05:32:00* Test Item Value Reference Range Comments Creatinine (test code = 2160-0) 1.22 0.72-1.25 BUN/Creatinine Whook2257-68-84 05:32:00* Test Item Value Reference Range Comments BUN/Creatinine Ratio (test code = 3097-3) 15 6-25 Estimat Glomerular Filtration Jtwv6268-98-99 05:32:00* Test Item Value Reference Range Comments Estimat Glomerular Filtration Rate (test code = 765637576) 56 >60 Ranges were taken from the National Kidney Disease Education Program and the [facility] Kidney Foundation literature.Reference ranges:60 or greater: Eyjuwo17-84 ( for 3 consecutive months): Chronic kidney disease 15 or less: Kidney failure Glucose Rypsi3986-05-60 05:32:00* Test Item Value Reference Range Comments Glucose Level (test code = VKU4426) 105 74-118 Calcium Qltgt3509-36-56 05:32:00* Test Item Value Reference Range Comments Calcium Level (test code = 17133-6) 8.8 8.4-10.2 White Blood Caazr8461-82-69 05:02:00* Test Item Value Reference Range Comments White Blood Count (test code = 6690-2) 7.65 4.8-10.8 Red Blood Givnk7155-56-44 05:02:00* Test Item Value Reference Range Comments Red Blood Count (test code = 789-8) 3.64 4.3-5.7 Fcjosrueci1558-11-94 05:02:00* Test Item Value Reference Range Comments Hemoglobin (test code = 74112-3) 11.6 14.0-18.0 Vokhsfjiwz8800-96-59 05:02:00* Test Item Value Reference Range Comments Hematocrit (test code = 4544-3) 36.7 38.2-49.6 Mean Corpuscular Snuwbh5031-18-56 05:02:00* Test Item Value Reference Range Comments Mean Corpuscular Volume (test code = 787-2) 100.8 81-9 9 Mean Corpuscular Atbtgzhjsa2020-20-07 05:02:00* Test Item Value Reference Range Comments Mean Corpuscular Hemoglobin (test code = 785-6) 31.9 28-32 Mean Corpuscular Hemoglobin Ttciefw7292-36-87 05:02:00* Test Item Value Reference Range Comments Mean Corpuscular Hemoglobin Concent (test code = 786-4) 31.6 31-35 Red Cell Distribution Ecvvp2281-42-97 05:02:00* Test Item Value Reference Range Comments Red Cell Distribution Width (test code = 14589-2) 14.7 11.7-14.4 Platelet Fpioy6373-52-91 05:02:00* Test Item Value Reference Range Comments Platelet Count (test code = 777-3) 121 140-360 Neutrophils (%) (Auto)2019-04-18 05:02:00* Test Item Value Reference Range Comments Neutrophils (%) (Auto) (test code = 09145-6) 57.5 38. 7-80.0 Lymphocytes (%) (Auto)2019-04-18 05:02:00* Test Item Value Reference Range Comments Lymphocytes (%) (Auto) (test code = 736-9) 28.9 18.0- 39.1 Monocytes (%) (Auto)2019-04-18 05:02:00* Test Item Value Reference Range Comments Monocytes (%) (Auto) (test code = 5905-5) 8.5 4.4-11 .3 Eosinophils (%) (Auto)2019-04-18 05:02:00* Test Item Value Reference Range Comments Eosinophils (%) (Auto) (test code = 713-8) 3.7 0.0-6 .0 Basophils (%) (Auto)2019-04-18 05:02:00* Test Item Value Reference Range Comments Basophils (%) (Auto) (test code = 706-2) 0.5 0.0-1.0 IM GRANULOCYTES %2019-04-18 05:02:00* Test Item Value Reference Range Comments IM GRANULOCYTES % (test code = IM GRANULOCYTES %) 0.9 0.0-1.0 Neutrophils # (Auto)2019-04-18 05:02:00* Test Item Value Reference Range Comments Neutrophils # (Auto) (test code = 751-8) 4.4 2.1-6.9 Lymphocytes # (Auto)2019-04-18 05:02:00* Test Item Value Reference Range Comments Lymphocytes # (Auto) (test code = 32821-6) 2.2 1.0-3 .2 Monocytes # (Auto)2019-04-18 05:02:00* Test Item Value Reference Range Comments Monocytes # (Auto) (test code = 742-7) 0.7 0.2-0.8 Eosinophils # (Auto)2019-04-18 05:02:00* Test Item Value Reference Range Comments Eosinophils # (Auto) (test code = 711-2) 0.3 0.0-0.4 Basophils # (Auto)2019-04-18 05:02:00* Test Item Value Reference Range Comments Basophils # (Auto) (test code = 704-7) 0.0 0.0-0.1 Absolute Immature Granulocyte (luxc1009-40-72 05:02:00* Test Item Value Reference Range Comments Absolute Immature Granulocyte (auto (xavier t code = Absolute Immature Granulocyte (auto) 0.07 0-0.1 Thyroid Stimulating Hormone (TSH)2019-04-17 07:05:00* Test Item Value Reference Range Comments Thyroid Stimulating Hormone (TSH) (test code = 11459-9) 0.577 0.350-4.940 Triglycerides Gwkvf2892-28-27 06:47:00* Test Item Value Reference Range Comments Triglycerides Level (test code = 2571-8) 56 0-149 Cholesterol Cqurg0543-94-60 06:47:00* Test Item Value Reference Range Comments Cholesterol Level (test code = 2093-3) 97 0-199 Less than 200 mg/dL Low Rbkd582 - 239 mg/dL Borderline Oleu978 m g/dl and greater High Risk LDL Vcxoszjsmav8329-64-09 06:47:00* Test Item Value Reference Range Comments LDL Cholesterol (test code = 2089-1) 58 60-130 HDL Leimfaqfvhx4026-14-08 06:47:00* Test Item Value Reference Range Comments HDL Cholesterol (test code = 2085-9) 28 40-60 Cholesterol/HDL Tnbgl8867-26-48 06:47:00* Test Item Value Reference Range Comments Cholesterol/HDL Ratio (test code = 9830-1) 3.5 3.9-4 .7 B-Type Natriuretic Stjxwkc8211-19-44 06:47:00* Test Item Value Reference Range Comments B-Type Natriuretic Peptide (test code = 28769-7) 104.6 0-100 Hemoglobin A1c Qnyoznv5635-51-37 06:32:00* Test Item Value Reference Range Comments Hemoglobin A1c Percent (test code = Hemoglobin A1c Percent) 5.9 4.0-7.0 CHEST SINGLE (PORTABLE)2019-04-17 06:02:00 [place] [address] Patient Name: PIYUSH COLEMAN MR #: [id number] : 1930 Age/Sex: 89/M Req #: [id number] Adm Physician: OTTO FARFAN MD Ordered by: Nilson Tate TUBER OPERATOR Report #: [id number] Location: [facility] Room/Bed: [place] [address] Procedure: [id number] DX/C HEST SINGLE (PORTABLE) Exam Date: 04/17/19 Exam Time : 0545 REPORT STATUS: Signed EXA MINATION: CHEST SINGLE (PORTABLE) INDICATION: CHF. COMPARISON: CT chest 04/17/2019. FINDINGS: TUBES and LINES: Left-sided pacemake r with leads overlying the right atrial appendage and right ventricle. KIYA NGS: Low lung volumes which decreases sensitivity and specificity for patholo gy. There are patchy opacities at the lung bases bilaterally. No evidence of lobar consolidation. PLEURA: No pleural effusion or pneumothorax. HE ART AND MEDIASTINUM: The cardiomediastinal silhouette is mildly enlarged. Ath erosclerotic calcifications of the aortic arch. BONES AND SOFT TISSUES: No acute osseous lesion. Soft tissues are unremarkable. UPPER ABDOMEN: No free air under the diaphragm. IMPRESSION: Low lung volumes, cannot e xclude mild pulmonary interstitial edema. Signed by: Dr. Argelia Elliott MD on 04/17/2019 6:03 AM Dictated By: ARGELIA ELLIOTT MD 2 Transcribed By: LEONOR on 04/17/19602 C OPY TO: NILSON TATE NP CT CERVICAL SPINE RJ6211-65-95 02:18:00 [facility] [address] [place] [address] Patient Name: PIYUSH COLEMAN MR #: [id number] : 1930 Age/Sex: 89/M Req #: [id number] Adm Physician: OTTO FARFAN MD Ordered by: ALINE SANCHEZ DO Report #: [id number] Location: [facility] Room/Bed: [place] [address] Procedure: [id number] CT/CT CERVICAL SPINE WO Exam Date: Exam Time: REPORT STATUS: Signed History: Fall Comp arison studies: None Technique: Axial images were obtained through the c ervical region.. Coronal and sagittal images reconstructed from the axial data . Dose modulation, iterative reconstruction, and/or weight based adjustment of the mA/kV was utilized to reduce the radiation dose to as low as reasonably achievable. Intravenous contrast: None Findings: Fractures: No ne. Soft tissues: No gross abnormalities. Atlantoaxial articulation: Mode rate degenerative changes. Alignment: Normal lordosis. No scoliosis. 2 mm dege nerative anterolisthesis of C3 on C4 and C4 on C5. Cervicomedullary junction : No abnormalities. The foramen magnum is patent. Vertebrae: No infectio n or neoplasm. Degenerative changes: * Mildly degenerated discs from C2 to C5, moderate from C5 to C7. * Facet arthrosis throughout the cervical reg ion. * Moderate spinal canal stenosis at C6-C7 due to disc osteophyte complex es. * Foraminal stenosis is moderate bilaterally at C3-4, left at C4-5, mac aterally at C5-6 and C6-7 due to facet and uncovertebral arthrosis. Inciden gabby atherosclerotic calcifications in the carotid bulbs. IMPRESSION: 1. No acute abnormalities. Specifically, no fractures 2. Cannot adequat syd evaluate for ligament, spinal cord and or vascular abnormalities. 3. Degenerative changes as described Signed by: Dr. Hung Gallegos M.D. on 04/17/2019 2:21 AM Dictated By: HUNG GALLEGOS MD, MD Electronic ally Signed By: HUNG GALLEGOS MD, MD on 04/17/19220 Transcribed By: CARMEN SANCHEZ on 04/17/19220 COPY TO: ALINE SANCHEZ DO CT CHEST W 2019-04-17 02:18:00 [place] [address] Patient Name: PIYUSH COLEMAN MR #: [id number] : 1930 Age/Sex: 89/M Req #: [id number] Adm Physician: OTTO FARFAN MD Ordered by: ALINE SANCHEZ DO Report #: [id number] Location: [facility] Room/Bed: [place] [address] Procedure: [id number] CT/CT CHEST W Exam Date: 04/17/19 Exam Time: 0152 REPORT STATUS: Signed EXAM: CT Chest WIT H contrast- Pulmonary Embolism Protocol INDICATION: Hypoxia, fall. COM PARISON: None TECHNIQUE: Chest was scanned utilizing a multidetector chuyita andrez scanner from the lung apex through the level of the diaphragm after admini stration of IV contrast. Thin section reconstructions were obtained with speci al concentration on the pulmonary arteries. Coronal and sagittal reformations were obtained. Pulmonary embolism protocol was performed. IV CONT RAST: 100 cc of Isovue 370 RADIATION DOSE: Total DLP: 547.5 mGy*cm Dose modulation, iterative reconstruction, and/or weight based adjustment of the mA/kV was utilized to reduce the radiation dose to as low as reasonably achievable. COMPLICATIONS: None FINDINGS: LINES/ TUBES: Left-sided pacemaker with leads in the right atrial appendage a nd right ventricle. PULMONARY ARTERIES: No filling defect is identified w ithin the pulmonary arteries to the segmental level. The subsegmental pulmonar y arteries are not well opacified. Main pulmonary artery measures 2.9 cm in di ameter. LUNGS AND AIRWAYS: The central airways are patent. There is bilater al mosaic attenuation. Subsegmental atelectasis in the lower lobes. PLEUR A: No evidence of pneumothorax or pleural effusion. There are bilateral lower lobe pleural calcifications. HEART AND MEDIASTINUM: The thyroid gland is no rmal. No mediastinal, hilar or axillary lymphadenopathy. Mild cardiomegaly. S tatus post aortic valve replacement. Extensive coronary atherosclerosis with c oronary stents. Moderate atherosclerotic calcifications of the thoracic aorta and branch vessels. UPPER ABDOMEN: Limited contrast-enhanced views of the u pper abdomen. There is a 5.4 cm right upper pole renal cyst. Extensive atheros clerotic vascular calcifications, pronounced in the splenic artery. Status pos t left nephrectomy. Postsurgical changes of the liver. BONES: No acute o sseous abnormality. No suspicious lytic or blastic lesions. SOFT TISSUES: Unremarkable. IMPRESSION: No evidence of pulmonary embolism to the level of segmental pulmonary arteries. No evidence of acute traumatic abnormalit y in the chest. Extensive coronary atherosclerosis with coronary stents. St atus post aortic valve replacement. Bilateral mosaic attenuation, which m ay reflect air trapping or microvascular disease. Signed by: Dr. Argelia henderson MD on 04/17/2019 2:28 AM Dictated By: ARGELIA ELLIOTT MD Electronically S igned By: ARGELIA ELLIOTT MD on 04/17/198 Transcribed By: LEONOR on 04/17/1907 17 COPY TO: ALINE SANCHEZ DO CT BRAIN UR2470-05-40 02:14:00 [place] [address] Patient Name: PIYUSH COLEMAN MR #: [id number] : 1930 Age/Sex: 89/M Req #: [id number] Adm Physician: OTTO FARFAN MD Ordered by: ALINE SANCHEZ DO Report #: [id number] Location: [facility] Room/Bed: IMCU 187-1 Procedure: [id number] CT/CT BRAIN WO Exam Date: Exam Time: REPORT STATUS: Signed History:Fall Comparison studies: None Technique: Axial images were obtained from the skull base to the vertex. Coronal and sagittal images reconstructed from the axial data. Dose modulation, iterative reconstruction, and/or weight based adjustment of the mA/kV was utilized to reduce the radiation dose to as low as reasonably achievable. Intravenous contrast: None Findings: Scalp/skull: No abnormalities. Extra-axial spaces: No masses. No fluid collections . Brain sulci: Moderate prominent. Ventricles: Moderate compensatory dila tation. No hydrocephalus. Parenchyma: Ill-defined hypodensities in the s upratentorial white matter are small vessel ischemic changes. No masses, he morrhage, acute or chronic cortical vascular insults. Sellar/suprasellar re gion: No abnormalities. Craniocervical junction: Patent foramen magnum. No Ch iari one malformation. Incidental findings: Atherosclerotic calcification s in the carotid siphons and vertebral arteries. Diffuse inflammatory opacific ation of the right frontal sinus and of multiple right ethmoid air cells. Impression: No acute abnormalities. Chronic findings: 1. Moderate generalized volume loss. 2. Mild supratentorial white matter small vessel isc hemic changes. Signed by: Dr. Hung Gallegos M.D. on 04/17/2019 2:18 A M Dictated By: HUNG GALLEGOS MD, MD 7 Transcribed By: LEONOR on 04/17/19 021 8 COPY TO: DANIELALINE Creatine Kinase [id number] 00:14:00 * Test Item Value Reference Range Comments Creatine Kinase MB (test code = 83152-3) 1.10 0-5.0 Troponin [id number] 00:14:00* Test Item Value Reference Range Comments Troponin I (test code = TQU1455) < 0.001 0-0.300 Creatine Ggssar4878-41-82 00:12:00* Test Item Value Reference Range Comments Creatine Kinase (test code = 2157-6) 20 30-200 CT Brain wo contrast [id number] 14:48:00EXAM: CT BRAIN WITHOUT CONTRASTINDICATION: - subdural hematomaCOMPARISON: 03/17/2019TECHNIQUE: Routine axial CT images of the brain were obtained.DISCUSSION: Interval decrease in size of parafalcine subdural hematoma. No masseffect. No acute ischemia. Microangiopathic changes and parenchymal volume lossare redemonstrated.Mucosal thickening in the anterior and posterior ethmoidal air cells and rightfrontal sinus is demonstrated.IMPRESSION:Interval decrease in size of parafalcine subdural hematoma without mass effect.--Read by: Aline Espinozai ctated Date/time: 04/13/19 16:56Electronically Signed by: Aline Espinoza 04/13/1917:00FINAL [id number] 10:57:00* Test Item Value Reference Range Comments Urinalysis (test code = UACLR) Yellow Yellow Urinalysis (test code = UACLY) Clear Clear Urinalysis (test code = SPGR) 1.020 1.005-1.030 Urinalysis (test code = MYLES) 6.0 5.0-9.0 Urinalysis (test code = UALEU) Small Negative Urinalysis (test code = UANIT) Negative Negative Urinalysis (test code = PROUADIP) Trace mg/dL Neg-Trace Urinalysis (test code = GLUCU) Negative mg/dL Negative Urinalysis (test code = KETU) Negative mg/dL Negative Urinalysis (test code = UAUROB) 0.2 mg/dL 0.2-1.0 Urinalysis (test code = UABIL) Negative Negative Urinalysis (test code = UABLD) Negative Negative Urinalysis (test code = UARBC) 0-3 HPF 0-3 Urinalysis (test code = UAWBC) 11-20 HPF 0-3 Urinalysis (test code = UASQUAM) 0-3 HPF 0-3 Urinalysis (test code = UABAC) Rare-Few HPF None Seen Urine Source: Urine Clean [employer] - [id number] 10:57:00* Test Item Value Reference Range Comments Chemistry - Specials (test code = TSH3) 1.0755 uIU/mL 0.35-4.9 4 [id number] 10:53:00* Test Item Value Reference Range Comments Hematology (test code = WBCT) 8.8 thou/uL 4.8-10.8 Hematology (test code = RBCT) 4.57 mill/uL 4.70-6.10 Hematology (test code = HGBT) 14.1 g/dL 14.0-18.0 Hematology (test code = HCTT) 43.4 % 42.0-52.0 Hematology (test code = MCV) 94.9 fl 80.0-94.0 Hematology (test code = MCH) 30.8 pg 27.0-31.0 Hematology (test code = MCHC) 32.4 g/dL 32.0-36.0 Hematology (test code = RDW) 13.4 % 11.5-14.5 Hematology (test code = PLTT) 183 thou/uL 130-400 Hematology (test code = MPV) 7.2 fL 7.4-10.4 Hematology (test code = %NEUT) 58.9 % 42.0-75.0 Hematology (test code = %LYMPH) 27.6 % 21.0-51.0 Hematology (test code = %MONO) 9.0 % 0.0-10.0 Hematology (test code = %EOS) 3.8 % 0.0-10.0 Hematology (test code = %BASO) 0.7 % 0.0-1.0 Hematology (test code = NEUT#) 5.2 thou/uL 1.40-6.50 Hematology (test code = LYMPH#) 2.4 thou/uL 1.20-3.40 Hematology (test code = MONO#) 0.8 thou/uL 0.11-0.59 Hematology (test code = EOS#) 0.3 thou/uL 0.0-0.7 Hematology (test code = BASO#) 0.1 thou/uL 0.0-0.2 [id number] 10:40:00* Test Item Value Reference Range Comments Chemistry (test code = NA-T) 138 mmol/L 136-145 Chemistry (test code = K-T) 4.2 mmol/L 3.5-5.1 Chemistry (test code = CL) 102 mmol/L 98-107 Chemistry (test code = CO2) 30 mmol/L 23-31 Chemistry (test code = ANGP) 10 mmol/L 10-20 Chemistry (test code = BUN) 18 mg/dL 8.4-25.7 Chemistry (test code = CREATT) 1.31 mg/dL 0.7-1.3 Chemistry (test code = EGFRMDRD) 52 Reference Range for Estimated GFR: Greater than 90 mL/min/1.73 m2NOTE:The MDRD equation has not been validated for use with theelderly (over 70 years of age), women, patien tswith serious comorbid condition or persons with extremes ofbody size, muscle mass, or nutritional status. Chemistry (test code = GLU-T) 114 mg/dL 83-110 Chemistry (test code = CA) 9.2 mg/dL 7.8-10.44 Chemistry (test code = TBILI) 0.8 mg/dL 0.2-1.2 Chemistry (test code = TP) 6.7 g/dL 5.8-8.1 NOTE: Plasma values are generally 0.3 to 0.5 g/dL higherthan serum values due to the presence of fibrinogen. Chemistry (test code = ALB) 3.8 g/dL 3.4-4.8 Chemistry (test code = GLOB) 2.9 g/dL 2.4-3.5 Chemistry (test code = AG) 1.3 g/dL 1.2-2.2 Chemistry (test code = ALP) 97 U/L 40-150 Chemistry (test code = AST) 13 U/L 5-34 Chemistry (test code = ALT) 11 U/L 0-55 Is Patient Smoker Or Non-Smoker NON-SMOKERIs patient fasting? YesChemistry 2016-08-08 10:40:00* Test Item Value Reference Range Comments Chemistry (test code = CHOL) 114 mg/dL < 200 Desired Lev els in terms of risk for Coronary Heart Disease: CHILD Desirable: Less than 170 mg/dL Borderline Risk: 170 - 199 mg/dL High Risk: Greater than or equal 200 mg/dL ADULT Desirable: Less than 200 mg/dL Borderline Risk: 200 - 239 mg/dL High Risk: Greater than or equal 240 mg/dL Chemistry (test code = TRIG) 86 mg/dL Less than 150 Chemistry (test code = HDL) 34 mg/dL >60 Neg Risk Adul t HDL levels in terms of risk for Coronary Heart Disease > or Equal to 60 mg/dL Negative Risk < 40 mg/dL HIGH Risk Chemistry (test code = LDL) 63 mg/dL Leve ls in terms of risk for coronary heart disease: Desirable: Less than 130 mg/dL Borderline High Risk: 130 - 159 mg/dL High Risk: Greater than 160 mg/dL Chemistry (test code = CRISK) 3.4 Less than 4.5 Ad ult levels in terms of risk for Coronary Heart Disease: Dangerous Level: Greater than 14.3 High: 6.7 - 14.3 Average: 4.0 - 6.7 Below average: 2.7 - 4.0 Protection probable: Less than 2.7 Is Patient Smoker Or Non-Smoker NON-SMOKERIs patient fasting? YesChemistry - BNP, HgbA1c, [id number] 10:33:00* Test Item Value Reference Range Comments Chemistry - BNP, HgbA1c, PTHi (test code = [id number]) 6.1 % 4.0-6.0 Therapeutic goals for glycemic control (ADA)Adults:- Goal of therapy: Less than 7.0% HbA1c- Action suggested: Greater than 8.0% [id number] patients:- Toddlers and preschoolers: Less than 8.5% (but Greater than 7.5%)- School age (6-12 years): Less than 8%- Adolescents and young adults (13-19 years): Less than 7.5%Diagnosing diabetes (ADA)- HbA1c: Greater than or equal to 6.5% Values of 5.7 - 6.4% indicate HIGH risk for developing DiabetesInternational Expert Committee Report on the Role of the [id number] in the Diagnosis of Diabetes. Diabetes Care 2009July;32(7):1327-1334ADA, Diagnosis classification of diabetes mellitus.Diabetes Care 2010; 33 Suppl 1:S62
--- OUTSIDE RECORDS SUMMARY | 2019-09-28 21:33 | XMS REPORT | Summary of Care ---
Author Author [facility] Organization [facility] Address Unknown Phone Unavailable Encounter SHAYY Zaldivar(OFELIA) [id number] Date(s): 09/15/15 - 09/15/[address] Discharge Disposition: Home Attending Physician: Tom [...] [Reference Range]: eGFR 45 mL/min/1.73m2 1 *NA* (09/15/15 3:25 PM) POC Creatinine 1.4 mg/dL [0.5-1.4 mg/dL] (09/15/15 3:25 PM) 1Result Comment: The eGFR is calculated [...] treatment: None; Concerns about tobacco use in [facility] sehold: No; Exposure to Tobacco Smoke None; Cigarette Smoking Last 365 Days No; Reg Smoking Cessation Counseling No Assessment and Plan No data available for this section
--- OUTSIDE RECORDS SUMMARY | 2019-09-28 21:33 | XMS REPORT | Summary of Care ---
Author Author KT Manuel, PIYUSH Palumbo Organization Unknown Address Unknown Phone Unavailable Care Team Providers Care Calf Skinner Name Role Phone KT Manuel, WILLA Unavailable Unavailable YASSINE NAJERA SD, MANJIT Unavailable Unavailable Kt NAJERA, Willa Unavailable Unavailable CECELIA NAJERA SD, MIKEL Gaona Unavailable Unavailable ENRIQUE NAJERA, TYLER Unavailable Unavailable LYNN BREWER, CHINYERE Hawthorne Unavailable Unavailable JAZLYN NAJERA SD, ANTONIO Jim Unavailable Unavailable MANJIT METZGER Unavailable Unavailable Unavailable Unavailable Functional Status Name Dates Details Functional status health issues are not documented Status: Name Dates Details Cognitive status health issues are not d ocumented Status: Problems Name Dates Details Bilateral knee pain (719.46, M25.561) Status: Active Cervical pain (723.1, M54.2) Status: Active Thoracic spine pain (724.1, M54.6) Status: Active Neck pain (723.1, M54.2) Status: Active Traumatic compression fracture of T4 tho racic vertebra, with routine healing, subsequent encounter (V54.17, S22.040D) Status: Active Chronic kidney disease, unspecified CKD stage (585.9, N18.9) Status: Active Medications Name Dates Details Furosemide 20 MG Oral Tablet TAKE 2 TABLET Every morning Active Claritin-D 24 Hour TB24 * Refills: 0 Active Atorvastatin Calcium 40 MG Oral Tablet TAKE TABLET BEDTIME * Refills: 0 Active Aspir-Low 81 MG TBEC TAKE 1 TABLET DAILY. * Refills: 0 Active Silodosin 8 MG Oral Capsule TAKE 1 CAPSULE DAILY WITH FOOD. * Refills: 0 Active Metoprolol Succinate ER 25 MG Oral Tablet Extended Release 24 Hour TAKE 1 TABLET DAILY. * Refills: 0 Active Clopidogrel Bisulfate 75 MG Oral Tablet TAKE 1 TABLET DAILY. * Refills: 0 Active Sennosides TABS * Refills: 0 Active amLODIPine Besylate 10 MG Oral Tablet TAKE 1 TABLET DAILY. * Refills: 0 Active Metoprolol Tartrate 25 MG Oral Tablet * Refills: 0 Active Tamsulosin HCl - 0.4 MG Oral Capsule * Refills: 0 Active Atorvastatin Calcium 40 MG Oral Tablet * Refills: 0 Active Furosemide 40 MG Oral Tablet * Refills: 0 Active Aspirin 81 MG TABS * Refills: 0 Active Allergies and Adverse Reactions Name Dates Details No Known Drug Allergies (Allergy) Status : Active Past Medical History Name Dates Details History of cardiac arrhythmia (V12.59, Z 86.79) Status: Resolved History of Compression fracture of C5 ve rtebra with routine healing (V54.17, S12.490D) Status: Resolved History of congestive heart failure (V12 .59, Z86.79) Status: Resolved History of coronary artery disease (V12. 59, Z86.79) Status: Resolved History of hypertension (V12.59, Z86.79) Status: Resolved History of kidney disease (V13.09, Z87.4 48) Status: Resolved History of renal cell carcinoma (V10.52, Z85.528) Status: Resolved Procedures Procedure Dates Details [QL] RENAL FUNCTION PANEL W/EGFR Date: 23-Sep-2019 Immunization Name Dates Details Immunizations not documented Family History Name Dates Details Family history of breast cancer (V16.3, Z80.3) Status: Active Family history of liver cancer (V16.0, Z 80.0) Status: Active Social History Name Dates Details - Status: Name Dates Details Never smoked tobacco (finding) Vital Signs Date Test Result Details No Known Vitals to report Results Date Description Value Details Results not documented Plan of Care Name Dates Details Planned Observations [QL] RENAL FUNCTION PANEL W/EGFR On: 23-Sep-2019 Intent Planned Goals not documented Planned Encounters Appointment; WILLA VEGA M.D. On: 04-Nov-2019 10:00 Appointment; ANDREW ROJAS APRN On: 24-Nov-2019 13:00 Instructions Name Dates Details Instructions not documented Encounters Appointment; CHINYERE BAILEY P.A. Encounter Diagnosis: Problem not documented On: 03-Oct-2017 10:00 Appointment; CHINYERE BAILEY P.A. Encounter Diagnosis: Problem not documented On: 09-Jan-2018 13:30 Appointment; CHINYERE BAILEY P.A. Encounter Diagnosis: Problem not documented On: 19-Jun-2018 14:30 Appointment; CHINYERE BAILEY P.A. Encounter Diagnosis: Problem not documented On: 26-Jun-2018 13:30 Appointment; CHINYERE BAILEY P.A. Encounter Diagnosis: Problem not documented On: 03-Jul-2018 13:30 Appointment; WILLA VEGA M.D. Encounter Diagnosis: Problem not documented On: 04-Mar-2019 9:30 Appointment; CAC, DEVICE Encounter Diagnosis: Problem not documented On: 07-Apr-2019 14:00 Appointment; MIKEL RAI M.D. Encounter Diagnosis: Problem not documented On: 13-Apr-2019 10:15 Appointment; WILLA VEGA M.D. Encounter Diagnosis: Problem not documented On: 06-May-2019 10:30 Appointment; CAC, DEVICE Encounter Diagnosis: Problem not documented On: 26-May-2019 13:30 Appointment; MIKEL RAI M.D. Encounter Diagnosis: Problem not documented On: 01-Jun-2019 10:45 Appointment; WILLA VEGA M.D. Encounter Diagnosis: Problem not documented On: 19-Aug-2019 11:00
--- OUTSIDE RECORDS SUMMARY | 2019-09-28 21:33 | XMS REPORT | Summary of Care ---
Author PIYUSH Patel M.A. Organization Unknown Address Unknown Phone Unavailable Care Team Providers Care Banana Loader Name Role Phone CECELIA Manuel, MIKEL Unavailable Unavailable YASSINE NAJERA HI, MANJIT Unavailable Unavailable Willa Meraz MD Unavailable Unavailable CECELIA NAJERA HI, MIKEL Gaona Unavailable Unavailable TYLER NUNEZ MD Unavailable Unavailable CHINYERE ANTONY Unavailable Unavailable JAZLYN NAJERA HI, ANTONIO Jim Unavailable Unavailable MANJIT METZGER Unavailable [...] Active Neck pain (723.1, M54.2) Status: Active Chronic kidney disease, unspecified CKD stage (585.9, N18.9) Status: Active Traumatic compression fracture of T4 tho racic vertebra, with routine healing, subsequent encounter (V54.17, S22.040D) Status: Active Medications Name Dates Details Furosemide 20 MG Oral Tablet TAKE 2 TABLET Every morning Active Claritin-D 24 Hour TB24 * Refills: 0 Active Atorvastatin Calcium 40 MG Oral Tablet TAKE TABLET BEDTIME * Refills: 0 Active Aspir-Low 81 MG Oral Tablet Delayed Release TAKE 1 TABLET DAILY. * Refills: 0 [...] Z85.528) Status: Resolved Procedures Procedure Dates Details [QLH] URINALYSIS, COMPLETE W/REFLEX TO CULTURE Date: 2018 [QH] PROTEIN, TOTAL W/CREAT, RANDOM URINE Date: 06-May-2019 [QLH] BASIC METABOLIC PANEL W/EGFR Date: 06-May-2019 [QH] PROTEIN, TOTAL W/CREAT, RANDOM URINE Date: 06-May-2019 [QLH] URINALYSIS, COMPLETE W/REFLEX TO CULTURE Date: 2018 [U] XRAY SPINE CERVICAL 2 OR 3 VWS [id number] Date: 01-Jun-2019 [U] XRAY SPINE THORACIC 2 VWS [id number] Date: 01-Jun-2019 [place] Renal 07015 Date: 06-May-2019 Immunization Name Dates Details Immunizations not documented Family History Name Dates Details Family history of breast cancer (V16.3, Z80.3) Status: Active Family history of liver cancer (V16.0, Z 80.0) Status: Active Social History Name Dates Details - Status: Name Dates Details Never smoker Vital Signs Date Test Result Details [id number] Height 70 in Status: Weight 213 lb Status: Body Mass Index Calculated 30.56 kg/m2 Status: Body Surface Area Calculated 2.14 m2 Status: 91-Mvz-408163:56 BP Systolic 134 mm[Hg] Status: BP Diastolic 67 mm[Hg] Status: Height 70 in Status: Weight 213 lb Status: Body Mass Index Calculated 30.56 kg/m2 Status: Body Surface Area Calculated 2.14 m2 Status: Heart Rate 77 /min Status: Results Date Description Value Details Results not documented Plan of Care Name Dates Details Planned Observations Planned Goals not documented Planned Encounters Appointment; WILLA MERAZ M.D. On: 19-Aug-2019 11:00 Appointment; ANDREW ROJAS NP On: 24-Nov-2019 13:00 Interventions Provided Labs/Procedures/Imaging* [U] XRAY SPINE CERVICAL 2 OR 3 VWS [id number]; To Be Done: 01 Jun 2019 * [U] XRAY SPINE THORACIC 2 VWS [id number]; To Be Done: 01 Jun 2019 Instructions Name Dates Details Instructions not documented Encounters Appointment; CHINYERE BAILEY P.A. Encounter Diagnosis: Problem not documented On: 03-Jul-2017 12:30 Appointment; CHINYERE BAILEY P.A. Encounter Diagnosis: Problem not documented On: 03-Oct-2017 10:00 Appointment; CHINYERE BAILEY P.A. Encounter Diagnosis: Problem not documented On: 09-Jan-2018 13:30 Appointment; CHINYERE BAILEY P.A. Encounter Diagnosis: Problem not documented On: 19-Jun-2018 14:30 Appointment; CHINYERE BAILEY P.A. Encounter Diagnosis: Problem not documented On: 26-Jun-2018 13:30 Appointment; CHINYERE BAILEY P.A. Encounter Diagnosis: Problem not documented On: 03-Jul-2018 13:30 Appointment; WILLA MERAZ M.D. Encounter Diagnosis: Problem not documented On: 04-Mar-2019 9:30 Appointment; CAC, DEVICE Encounter Diagnosis: Problem not documented On: 07-Apr-2019 14:00 Appointment; MIKEL RAI M.D. Encounter Diagnosis: Problem not documented On: 13-Apr-2019 10:15 Appointment; WILLA MERAZ M.D. Encounter Diagnosis: Problem not documented On: 06-May-2019 10:30 Appointment; CAC, DEVICE Encounter Diagnosis: Problem not documented On: 26-May-2019 13:30 Appointment; MIKEL RAI M.D. Encounter Diagnosis: Problem not documented On: 01-Jun-2019 10:45
--- OUTSIDE RECORDS SUMMARY | 2019-09-28 21:33 | XMS REPORT | Summary of Care ---
Author Author [facility] Organization [facility] Address Unknown Phone Unavailable Encounter SHAYY Zaldivar(OFELIA) [id number] Date(s): 07/26/15 - 07/26/15 [facility] [address] [facility], [address] Discharge Disposition: Home Attending Physician: Tom Nova MD Referring Physician: Tom Nova MD Vital Signs Most recent to 1 oldest [Reference Range]: Height 182.88 cm (07/26/15 10:31 AM) Temperature Oral 97.3 DegF [96.4-99.1 DegF] (07/26/15 10:31 AM) Blood Pressure 129/74 mmHg [90-140/60-90 mmHg] (07/26/15 10:31 AM) Respiratory Rate 16 BRMIN [14-20 BRMIN] (07/26/15 10:31 AM) Peripheral Pulse 89 bpm Rate [60-100 bpm] (07/26/15 10:31 AM) Weight 104.347 kg (07/26/15 10:31 AM) Body Mass Index 31.2 m2 (07/26/15 10:31 AM) Problem List Condition Effective Dates Status Health Status Informan t 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
--- OUTSIDE RECORDS SUMMARY | 2019-09-28 21:33 | XMS REPORT | Summary of Care ---
Author Author [facility] Organization [facility] Address Unknown Phone Unavailable Encounter SHAYY Zaldivar(OFELIA) [id number] Date(s): 08/16/15 - 08/16/15 [facility] [address] [facility], [address] Discharge Disposition: Home Attending Physician: Tom Nova MD Referring Physician: Tom Nova MD Vital Signs Most recent to 1 oldest [Reference Range]: Height 182.88 cm (08/16/15 11:32 AM) Temperature Oral 97.8 DegF [96.4-99.1 DegF] (08/16/15 11:32 AM) Blood Pressure 124/62 mmHg [90-140/60-90 mmHg] (08/16/15 11:32 AM) Respiratory Rate 16 BRMIN [14-20 BRMIN] (08/16/15 11:32 AM) Peripheral Pulse 105 bpm Rate [60-100 bpm] *HI* (08/16/15 11:32 AM) Weight 104.261 kg (08/16/15 11:32 AM) Body Mass Index 31.17 m2 (08/16/15 11:32 AM) Problem List Condition Effective Dates Status [...]
--- OUTSIDE RECORDS SUMMARY | 2019-09-28 21:33 | XMS REPORT | Summary of Care ---
Author Author [facility] Organization [facility] Address Unknown Phone Unavailable Encounter SAHYY Zaldivar(OFELIA) [id number] Date(s): 08/29/15 - 08/29/15 [facility] [address] [facility], [address] Discharge Disposition: Home Attending Physician: Tom Nova MD Vital Signs Most recent to 1 oldest [Reference Range]: Height 182.88 cm (08/29/15 11:19 AM) Temperature Oral 97.1 DegF [96.4-99.1 DegF] (08/29/15 11:19 AM) Blood Pressure 116/60 mmHg [90-140/60-90 mmHg] (08/29/15 11:19 AM) Respiratory Rate 16 BRMIN [14-20 BRMIN] (08/29/15 11:19 AM) Peripheral Pulse 92 bpm Rate [60-100 bpm] (08/29/15 11:19 AM) Weight 103.665 kg (08/29/15 11:19 AM) Body Mass Index 31 m2 (08/29/15 11:19 AM) Problem List Condition Effective Dates Status Health Status Informan t 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
--- OUTSIDE RECORDS SUMMARY | 2019-09-28 21:33 | XMS REPORT | Summary of Care ---
Author Author SILVIA Manuel, PIYUSH Palumbo Organization Unknown Address Unknown Phone Unavailable Care Team Providers Care Mobility Scooter Repairer Name Role Phone YASSINE NAJERA WI, MANJIT Unavailable Unavailable Willa Meraz MD Unavailable Unavailable CECELIA NAJERA [place], MIKEL Gaona Unavailable Unavailable ENRIQUE NAJERA, TYLER Unavailable Unavailable CHINYERE ANTONY Unavailable Unavailable JAZLYN NAJERA [place], ANTONIO Jim Unavailable Unavailable MANJIT METZGER Unavailable [...] Oral Tablet TAKE 2 TABLET Every morning M.A. Active Claritin-D 24 Hour TB24 * Refills: 0 M.A. Active Atorvastatin Calcium 40 MG Oral Tablet TAKE TABLET BEDTIME * Refills: 0 M.A. Active Aspir-Low 81 MG Oral Tablet Delayed Release TAKE 1 TABLET DAILY. * Refills: 0 M.A. Active Silodosin 8 MG Oral Capsule TAKE 1 CAPSULE DAILY WITH FOOD. * Refills: 0 M.A. Active Metoprolol Succinate ER 25 MG Oral Tablet Extended Release 24 Hour TAKE 1 TABLET DAILY. * Refills: 0 M.A. Active Clopidogrel Bisulfate 75 MG Oral Tablet TAKE 1 TABLET DAILY. * Refills: 0 M.A. Active Sennosides TABS * Refills: 0 M.A. Active amLODIPine Besylate 10 MG Oral Tablet TAKE 1 TABLET DAILY. * Refills: 0 M.A. Active Metoprolol Tartrate 25 MG Oral Tablet * Refills: 0 M.A. Active Tamsulosin HCl - 0.4 MG Oral Capsule * Refills: 0 M.A. Active Atorvastatin Calcium 40 MG Oral Tablet * Refills: 0 M.A. Active Furosemide 40 MG Oral Tablet * Refills: 0 M.A. Active Aspirin 81 MG TABS * Refills: 0 M.A. Active Allergies and Adverse Reactions Name Dates [...] Z85.528) Status: Resolved Procedures Procedure Dates Details Procedures not documented Immunization Name Dates Details Immunizations not documented [...] M.D. On: 19-Aug-2019 11:00 Appointment; ANDREW ROJAS APRN On: 24-Nov-2019 13:00 [...]
--- OUTSIDE RECORDS SUMMARY | 2019-09-28 21:33 | XMS REPORT | Summary of Care ---
Author Author [facility] Organization [facility] Address Unknown Phone Unavailable Encounter SHAYY Zaldivar(OFELIA) [id number] Date(s): 11/28/15 - 11/28/15 [facility] [address] [facility], [address] [place], [place] [address] Discharge Disposition: Home Attending Physician: Tom Nova MD Referring Physician: Tom Nova MD Vital Signs Most recent to 1 oldest [Reference Range]: Height 182.88 cm (11/28/15 10:57 AM) Temperature Oral 97.4 DegF [96.4-99.1 DegF] (11/28/15 10:57 AM) Blood Pressure 127/72 mmHg [90-140/60-90 mmHg] (11/28/15 10:57 AM) Respiratory Rate 18 BRMIN [14-20 BRMIN] (11/28/15 10:57 AM) Peripheral Pulse 88 bpm Rate [60-100 bpm] (11/28/15 10:57 AM) Weight 102.955 kg (11/28/15 10:57 AM) Body Mass Index 30.78 m2 (11/28/15 10:57 AM) Problem List Condition Effective Dates Status [...]
--- OUTSIDE RECORDS SUMMARY | 2019-09-28 21:33 | XMS REPORT | Summary of Care ---
Author Author [facility] Organization [facility] Address Unknown Phone Unavailable Encounter HQ Kayley(FIN) [id number] Date(s): 07/30/16 - 07/30/16 [facility] [address] [facility], [address] [place] [address]- Discharge Disposition: Home or Self Care Vital [...]
--- NOTE | 2019-09-28 21:40 | Emergency Department Note ---
History of Present Illnes History of Present Illness Chief Complaint: Head/Face Trauma Stated Complaint: FELL History of Present Illness This is a 89 year old male who sustained a mechanical fall to the head. Denies LOC. Arrived by EMS [facility] . 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 Any updates have been documented here. 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 Past Surgical History: Pacer/AICD Other Surgery: CAROTID ENDARTERECTOMY LT RENAL CELL CARCINOMA S/P NEPHRECTOMY TAVR X4 CARDIAC STENTS AORTIC VALVE REPLACEMENT Social History Smoking Cessation: Never Smoker Alcohol Use: None Any Illegal Drug Use: No Family History Family history of heart diseas: Yes Review of Systems Review of Systems Constitutional: no symptoms EENTM: no symptoms Cardiovascular: no symptoms Gastointestinal/Abdominal: no symptoms Genitourinary: no symptoms Musculoskeletal: no symptoms Integumentary: other (skin laceration) Neurological: headache Psychological: no symptoms Endocrine: no symptoms Hematological/Lymphatic: no symptoms Review of other systems All other systems reviewed and negative. Physical Exam Related Data Allergies: Coded Allergies: No Known Allergies (Unverified , 04/16/19) Physical Exam CONSTITUTIONAL HENT EYES NECK PULMONARY CARDIOVASCULAR GASTROINTESTINAL GENITOURINARY SKIN Skin: other (2 cm laceration curvilinear R parietal region, Skin tear L hand) MUSCULOSKELETAL NEUROLOGICAL PSYCHOLOGICAL Results Imaging Y: Yes Impressions [place] [address] Patient Name: PIYUSH COLEMAN MR #: [id number] : 1930 Age/Sex: 89/M Req #: [id number] Adm Physician: Ordered by: ALINE SANCHEZ DO Report #: [id number] Location: ER Room/Bed: Procedure: [id number] CT/CT BRAIN WO Exam Date: Exam Time: REPORT STATUS: Signed CT BRAIN WO HISTORY: Fall COMPARISON: Head CT 04/17/2019 Technique: Noncontrast axial scans were obtained from skull base to the vertex. Coronal and sagittal reconstructions obtained from the axial data. One or more of the following dose reduction techniques were used: Automated exposure control, adjustment of the mA and/or kV according to patient size, and/or utilization of iterative reconstruction technique. Beam hardening artifacts obscure some details. DISCUSSION: Scalp/Skull: Frontal scalp hematomas with skin sade. No calvarial fracture. Brain sulci: Mildly prominent. Ventricles: Compensatory dilatation. Extra-axial spaces: No masses or fluid collections. Carotid and vertebral artery calcifications are present. Parenchyma: Mild bilateral deep white matter hypodensity is likely chronic microvascular ischemic change. Otherwise, no masses, hemorrhage, or large vascular territory acute infarct. Dural sinuses: No abnormal densities. Sellar/Suprasellar region: Intact. Skull base: Intact. Incidental findings: Bilateral ocular lens replacement. Right frontal sinus and right anterior ethmoid air cell opacification remains. IMPRESSION: 1. No acute intracranial abnormalities. 2. Mild supratentorial chronic microvascular ischemic change. Generalized cerebral volume loss. Signed by: Dr. Michael Singh M.D. on 09/28/2019 10:06 PM Dictated By: MICHAEL SINGH MD 05 Transcribed By: LEONOR on 09/28/192205 COPY TO: ALINE SANCHEZ DO~ [place] [address] Patient Name: PIYUSH COLEMAN MR #: [id number] : 1930 Age/Sex: 89/M Req #: [id number] Adm Physician: Ordered by: ALINE SANCHEZ DO Report #: [id number] Location: ER Room/Bed: Procedure: [id number] DX/HAND 3+ VIEWS LEFT Exam Date: 09/28/19 Exam Time: 2139 REPORT STATUS: Signed HAND 3+ VIEWS LEFT - 3 views HISTORY: Pain. COMPARISON: None available. FINDINGS: Bones: Mild osseous demineralization. No acute displaced fracture. Partially visualized distal wrist hardware. Osseous alignment is within normal limits. Joints: Scattered degenerative changes, severe at the first carpometacarpal joint and second DIP joint. Soft tissues: The soft tissues appear unremarkable. IMPRESSION: No acute radiographic abnormality. Signed by: Eddie Rey MD on 09/28/2019 10:15 PM Dictated By: EDDIE REY MD 14 Transcribed By: LEONOR on 09/28/192214 COPY TO: ALINE SANCHEZ DO~ Procedures Laceration Laceration: Laceration 1 (Right parietal regoin anterior) Site: scalp Side: right Description: linear Depth: simple, single layer Pre-repair: wound exposed Skin layer closed with: other (Sade) Technique: other (7) Critical Care Time Subsequent provider I assumed direction of critical care for this patient from another provider of my specialty. Assessment & Plan Assessment & Plan Problems: (1) Scalp laceration (2) Skin tear of left hand without complication (3) Concussion Assessment & Plan Patient to be discharged to home in the care of family Rx keflex pt to f/u with PCP Depart Disposition: HOME, SELF-group home Meds Active Scripts [Meclizine Hcl] 12.5 MG TAB No Conflict Check, 25 MG PO Q6H PRN for dizziness, #20 Prov:NILSON [employer]MER 04/18/19 Reported Medications Simethicone (SIMETHICONE) 80 Mg Chew, 80 MG PO Q6H PRN for GAS, #30 TAB 04/17/19 Nitroglycerin (NITROGLYCERIN) 0.4 Mg Tab.subl, 0.4 MG SL Q5MIN PRN for CHEST PAIN, TAB 04/17/19 Loratadine (LORATADINE) 10 Mg Tablet, 10 MG PO DAILY PRN for ALLERGY, #30 TAB 04/17/19 Tamsulosin Hcl* (FLOMAX*) 0.4 Mg Cap, 0.4 MG PO DAILY, #30 CAP 04/17/19 Furosemide (LASIX) 40 Mg Tablet, 40 MG PO DAILY, #30 TAB 04/17/19 Metoprolol Tartrate (METOPROLOL TARTRATE) 25 Mg Tablet, 25 MG PO Q12H PRN for HIGH BLOOD PRESSURE, TAB 04/17/19 Aspirin (ASPIR 81) 81 Mg Tablet.dr, PO DAILY 04/17/19 Atorvastatin Calcium (ATORVASTATIN CALCIUM) 20 Mg Tablet, 40 MG PO HS, #30 TAB 04/17/19 Acetaminophen (ACETAMINOPHEN) 325 Mg Tablet, 325 MG PO Q4HR PRN for Mild Pain (1-3) or Fever>100.8 for 5 Days, TAB 04/17/19 Ipratropium/Albuterol Sulfate (IPRAT-ALBUT 0.5-3(2.5) MG/3 ML) 3 Ml Ampul.neb, Q4HR PRN for SHORTNESS OF BREATH 04/17/19 ALINE SANCHEZ DO September 28, 2019 21:30
--- NOTE | 2019-09-28 22:10 | Diagnostic Imaging Report ---
CT BRAIN WO HISTORY: Fall COMPARISON: Head CT 04/17/2019 Technique: Noncontrast axial scans were obtained from skull base to the vertex. Coronal and sagittal reconstructions obtained from the axial data. One or more of the following dose reduction techniques were used: Automated exposure control, adjustment of the mA and/or kV according to patient size, and/or utilization of iterative reconstruction technique. Beam hardening artifacts obscure some details. DISCUSSION: Scalp/Skull: Frontal scalp hematomas with skin camille. No calvarial fracture. Brain sulci: Mildly prominent. Ventricles: Compensatory dilatation. Extra-axial spaces: No masses or fluid collections. Carotid and vertebral artery calcifications are present. Parenchyma: Mild bilateral deep white matter hypodensity is likely chronic microvascular ischemic change. Otherwise, no masses, hemorrhage, or large vascular territory acute infarct. Dural sinuses: No abnormal densities. Sellar/Suprasellar region: Intact. Skull base: Intact. Incidental findings: Bilateral ocular lens replacement. Right frontal sinus and right anterior ethmoid air cell opacification remains. IMPRESSION: 1. No acute intracranial abnormalities. 2. Mild supratentorial chronic microvascular ischemic change. Generalized cerebral volume loss. Signed by: Dr. Michael Singh M.D. on 09/28/2019 10:06 PM
--- NOTE | 2019-09-28 22:18 | Diagnostic Imaging Report ---
HAND 3+ VIEWS LEFT - 3 views HISTORY: Pain. COMPARISON: None available. FINDINGS: Bones: Mild osseous demineralization. No acute displaced fracture. Partially visualized distal wrist hardware. Osseous alignment is within normal limits. Joints: Scattered degenerative changes, severe at the first carpometacarpal joint and second DIP joint. Soft tissues: The soft tissues appear unremarkable. IMPRESSION: No acute radiographic abnormality. Signed by: Eddie Petty MD on 09/28/2019 10:15 PM
== END | disposition home or self-care (01) ==
LOC: ER 21:27
DX: S01.01XA Laceration without foreign body of scalp, initial encounter (principal); S06.0X0A Concussion without loss of consciousness, initial encounter; M79.642 Pain in left hand; W18.39XA Other fall on same level, initial encounter; Y93.H2 Activity, gardening and landscaping; Y92.007 Garden or yard of unspecified non-institutional (private) residence as the place of occurrence of the external cause; S61.412A Laceration without foreign body of left hand, initial encounter; I10 Essential (primary) hypertension; E78.5 Hyperlipidemia, unspecified; N18.9 Chronic kidney disease, unspecified; I25.10 Atherosclerotic heart disease of native coronary artery without angina pectoris; I50.9 Heart failure, unspecified
CPT/HCPCS: 70450; 99282